=== PATIENT | female | born 1935 | race Caucasian/White ===

== ENCOUNTER → 2016-10-28 | Outpatient (CLI) | payer MEDICARE, BC ==
--- NOTE | 2016-10-30 11:31 | RADIOLOGY REPORT (SQ) ---
EXAM DESCRIPTION: PET CT SKULL/THIGH COMPLETED DATE/TIME: 10/28/2016 1:33 pm REASON FOR STUDY: BREAST CANCER C50.919 MALIGNANT NEOPLASM OF UNSP SITE OF UNSPECIFIED FEMAL COMPARISON: 11/27/2015. RADIONUCLIDE AND DOSE: 12.0 mCi F18 FDG The route of agent administration: Intravenous FASTING BLOOD SUGAR: 151 mg/dl CONTRAST TYPE AND DOSE: No CT contrast given. TECHNIQUE: Blood glucose level was verified. Above dose of FDG was injected intravenously. 2-D seg mented attenuation correction images were obtained from the base of the skull to the midthighs. Nonc ontrast CT images were obtained for attenuation correction and fusion with emission images. CT image s were performed without oral or intravenous contrast and are not sensitive for parenchymal lesions. A series of overlapping emission PET images were obtained. Images reviewed and manipulated at [facility] work station by the radiologist. Images stored on PACS. LIMITATIONS: None. FINDINGS: HEAD AND NECK: No areas of abnormal metabolic activity in the soft tissues of the head and neck. CHEST: No areas of abnormal metabolic activity in the chest. ABDOMEN AND PELVIS: No areas of abnormal metabolic activity in the abdomen or pelvis. Expected physi ologic activity is present in the genitourinary system and bowel. PROXIMAL LOWER EXTREMITIES: No areas of abnormal metabolic activity in the soft tissues of the lower extremities. BONES: No abnormal metabolic activity in the visualized skeleton. ADDITIONAL CT FINDINGS: Stable chronic findings on CT. Postcholecystectomy with air in the intrahepa tic bile ducts. Degenerative changes in lumbar spine. Mesh in the anterior abdominal wall. Surgica l changes in the left breast. OTHER: No other significant findings. IMPRESSION: NO AREAS OF ABNORMAL METABOLIC ACTIVITY CONCERNING FOR METASTASIS. STABLE CHRONIC FINDI NGS ON CT. TECHNICAL DOCUMENTATION: JOB ID: [id number]- All Rights Reserved
== END ==
LOC: RAD 11:40
PROVIDERS: ATTEND Internal Medicine Medical Oncology
DX: C50.919 Malignant neoplasm of unspecified site of unspecified female breast (principal)
CPT/HCPCS: 78815; A9552

== ENCOUNTER → 2017-04-11 | Outpatient (CLI) | payer MEDICARE, BC ==
--- NOTE | 2017-04-12 14:57 | WOMENS IMAGING REPORT ---
EXAM DESCRIPTION: 3D SCREENING MAMMO BILAT COMPLETED DATE/TIME: 04/11/2017 2:50 pm REASON FOR STUDY: ROUTINE SCREENING;Z12.31 Z12.31 ENCNTR SCREEN MAMMOGRAM FOR MALIGNANT NEOPLASM OF HIWOT COMPARISON: 2015 TECHNIQUE: Standard craniocaudal and mediolateral oblique views of each breast recorded using digita l acquisition and breast tomosynthesis. LIMITATIONS: None. FINDINGS: Findings present which are benign by mammographic criteria. No suspicious masses, calcifi cations or architectural distortion. Pertinent benign findings: Surgical changes on the left. Read with the assistance of CAD. .[facility] - R2 Cenova Version 1.3 .[facility] - R2 Cenova Version 1.3 .[facility] - R2 Cenova Version 2.4 .[facility] - R2 Cenova Version 2.4 .[facility] - R2 Explosive Operator Fuse Version 9.2 Benign mammographic findings may include one or more of the following: Smooth masses, popcorn/rim/co arse calcifications, asymmetries, post-procedure changes, and lesions with long-standing stability. IMPRESSION: BENIGN MAMMOGRAPHIC FINDINGS. BIRADS 2 BREAST DENSITY: a. The breasts are almost entirely fatty. BIRAD: 2 BENIGN FINDING(S) RECOMMENDATION: RECOMMENDATION: ROUTINE SCREENING COMMENT: The patient has been notified of the results by letter per SA requirements. Additional no tification policies are in place for contacting patient with suspicious or incomplete findings. Quality ID #[id number]: The [employer] [employer] recommends an annual screening mammogram for women aged 40 years or over. This facility utilizes a reminder system to ensure that all patients receive reminder letters, and/or direct phone calls for appointments. This includes reminders for routine scr eening mammograms, diagnostic mammograms, or other Breast Imaging Interventions when appropriate. Th is patient will be placed in the appropriate reminder system. The [place] [employer] (ACR) has developed recommendations for screening MRI of the breast s in certain patient populations, to be used in conjunction with mammography. Breast MRI surveillanc e may be appropriate for women with more than 20% lifetime risk of developing breast cancer as deter mined by genetic testing, significant family history of the disease, or history of mantle radiation f or Hodgkins Disease. ACR Practice Guidelines 2008. DBT Technology DBT is a type of tomographic mammography. With conventional mammography, overlapping breast tissue ma y make lesions difficult to detect, even with good compression. DBT uses an x-ray tube that rotates a round the breast, taking images at different angles. These images are then combined to create thin sl ices of the breast that the radiologist can view as a 3D reconstruction. The Hologic unit can perform full-field digital mammograms (2D imaging); or DBT (3D imaging); or both, in a combination mode that quickly performs both the mammogram and the tomosynthesis scan while the breast is still compressed. PQRS 6045F: Fluoroscopic imaging is not utilized for breast tomosynthesis. TECHNICAL DOCUMENTATION: FINDING NUMBER: (1) ASSESSMENT: (1) JOB ID: [id number] [employer]- All Rights Reserved
== END ==
LOC: WI 13:52
PROVIDERS: ATTEND Internal Medicine Medical Oncology
DX: Z12.31 Encounter for screening mammogram for malignant neoplasm of breast (principal)
CPT/HCPCS: 77063; 77067

== ENCOUNTER → 2017-05-01 | Outpatient (CLI) | payer MEDICARE, BC ==
[2017-05-01 14:22] LABS: ARTERIAL BLOOD BASE EXCESS -0.1 mmol/L; ARTERIAL BLOOD HCO3 25.8 mmol/L (20-26); ARTERIAL BLOOD O2 SATURATION 91.5 % (94-98); ARTERIAL BLOOD PCO2 46.5 mmHg (35-45); ARTERIAL BLOOD PH 7.36 (7.35-7.45); ARTERIAL BLOOD PO2 63.9 mmHg (80-100); ARTERIAL BLOOD TOTAL CO2 27.2 mmol/L (21-25)
[2017-05-01 14:23] LABS: ARTERIAL BLOOD FIO2 ROOM AIR
--- NOTE | 2017-05-01 14:46 | RADIOLOGY REPORT (SQ) ---
EXAM DESCRIPTION: CHEST PA/LATERAL COMPLETED DATE/TIME: 05/01/2017 2:13 pm REASON FOR STUDY: CHRONIC RESPIRATORY FAILURE WITH HYPERCAPNIA COMPARISON: None. EXAM PARAMETERS: NUMBER OF VIEWS: two views TECHNIQUE: Digital Frontal and Lateral radiographic views of the chest acquired. RADIATION DOSE: NA LIMITATIONS: none FINDINGS: LUNGS AND PLEURA: No opacities, masses or pneumothorax. No pleural effusion. MEDIASTINUM AND HILAR STRUCTURES: No masses or contour abnormalities. HEART AND VASCULAR STRUCTURES: Old sternotomy for CABG. No cardiomegaly. Faintly radiopaque left co ronary stent. BONES: Osteoporotic with diffuse thoracic ankylosis. HARDWARE: None in the chest. OTHER: No other significant finding. IMPRESSION: No acute findings TECHNICAL DOCUMENTATION: JOB ID: [id number] [employer]- All Rights Reserved
== END ==
LOC: OD 13:39
PROVIDERS: ATTEND Internal Medicine Pulmonary Disease
DX: J96.12 Chronic respiratory failure with hypercapnia (principal)
CPT/HCPCS: 36600; 71046; 82803

== ENCOUNTER 2017-07-26 19:38 | Inpatient (IN) | payer MEDICARE, BC ==
[2017-07-26] MEDS ORDERED: NORMAL SALINE 1000 ML 1,000 ML IV ONE ×2 (19:51→20:41)
[2017-07-26 19:59] LABS: HEMATOCRIT 42.9 % (36.0-47.0); HEMOGLOBIN 14.5 g/dL (12.0-15.5); MEAN CORPUSCULAR HEMOGLOBIN 32.8 pg (27.0-33.4); MEAN CORPUSCULAR HGB CONC 33.8 g/dL (32.0-36.0); MEAN CORPUSCULAR VOLUME 97 fl (80-97); PLATELET COUNT 228 10^3/uL (150-450); RED BLOOD COUNT 4.41 10^6/uL (3.72-5.28); RED CELL DISTRIBUTION WIDTH 15.1 % (11.5-14.0); WHITE BLOOD COUNT 10.1 10^3/uL (4.0-10.5)
[2017-07-26 20:03] LABS: VENOUS BLOOD BASE EXCESS 0.3 mmol/L; VENOUS BLOOD HCO3 24.7 mmol/L (20-32); VENOUS BLOOD PCO2 38.9 mmHg (35-63); VENOUS BLOOD PH 7.42 (7.30-7.42)
[2017-07-26 20:10] LABS: INTERNATIONAL RATION (INR) 1.41; PROTHROMBIN TIME 17.9 SEC (11.4-15.4)
--- NOTE | 2017-07-26 20:10 | ER Document Report ---
ED General - General Stated Complaint: FEVER Time Seen by Provider: 07/26/17 19:50 Notes: Patient is a 82-year-old female who presents emergency department the chief complaint of fever, hypoxia. Patient states that she had symptoms starting on Monday with abdominal pain status post eating red lobster. Patient states that on Monday she had lower abdominal cramping with nausea and vomiting that resolved by Monday. Patient states that on Monday she was having shortness of breath, dyspnea on exertion and chills/subjective fever. Patient states that she takes aspirin but denies any other blood thinners. Patient denies any productive cough, chest pain. Primary care is with Dr. Chavez Improvement Advisor with Dr. Monae Urology with Dr. Gonzalez for urinary incontinence Cardiology with Dr. Saul Pain management with Dr. Amos Past medical history significant for COPD not on home O2, urinary incontinence, jee-nsjjvep-krzcoccew diabetes, hypertension, history of atrial fibrillation on Tikosyn and metoprolol, history of chronic back pain Past surgical history significant for umbilical hernia repair 2, coronary artery bypass 1, bilateral cataracts, tonsils and adenoids, previous coronary stent 2, cholecystectomy, bilateral knee replacements Social history significant for former tobacco user, occasional alcohol. Denies any drug use. Allergies to sulfa, penicillin and Biaxin. TRAVEL OUTSIDE OF THE [place] IN LAST 30 DAYS: No - Related Data Allergies/Adverse Reactions: Penicillins Allergy (Verified 03/04/15 08:13) Sulfa (Sulfonamide Antibiotics) Allergy (Verified 03/04/15 08:13) Past Medical History - Social History Smoking Status: Former Smoker Family History: Reviewed & Not Pertinent Psychiatric Medical History: Reports: Hx Depression - Immunizations Hx Diphtheria, Pertussis, Tetanus Vaccination: Yes Physical Exam - Vital signs Vitals: Resp Pulse Ox 22 H 91 L 07/26/17 19:48 07/26/17 19:48 - Notes Notes: PHYSICAL EXAM GENERAL: Alert, interacts well. HEAD: Normocephalic, atraumatic. EYES: Pupils equal, round, and reactive to light. Extraocular movements intact. ENT: Oral mucosa moist, tongue midline. NECK: Full range of motion. Supple. Trachea midline. LUNGS: Clear to auscultation bilaterally, no wheezes, rales, or rhonchi. No respiratory distress. HEART: Regular rate and rhythm. No murmurs, gallops, or rubs. ABDOMEN: Obese, soft, nondistended, nontender. No guarding, rebound, or rigidity.. Bowel sounds present in all 4 quadrants. EXTREMITIES: Moves all 4 extremities spontaneously. No edema, radial and dorsalis pedis pulses 2/4 bilaterally. No cyanosis. NEUROLOGICAL: Alert and oriented x4. Normal speech. PSYCH: Normal affect, normal mood. SKIN: Warm, dry, normal turgor. No rashes or lesions noted. Course - Re-evaluation Re-evalutation: 07/27/17 00:48 Patient is an 82-year-old female who presents with a UTI, hypoxia, fever with sepsis criteria. Patient will be admitted. No evidence of PE noted on CTA chemistry shows mild AK I as well as elevated BNP. Patient is still requiring supplemental O2. Patient evaluated by hospitalist who agrees to admit for hypoxia, urinary tract infection versus pyelonephritis due to meeting inpatient sepsis criteria. Patient agreeable with plan. - Vital Signs Vital signs: Temp Pulse Resp BP Pulse Ox 99.1 F 122 H 22 H 99/55 L 99 07/26/17 22:50 07/26/17 19:51 07/27/17 07:33 07/27/17 07:33 07/27/17 07:33 - Laboratory Result Diagrams: 07/26/17 19:04 07/26/17 19:04 Laboratory results interpreted by me: 07/26/17 07/26/17 07/26/17 19:04 19:04 19:04 RDW 15.1 H Seg Neuts % (Manual) 91 H Lymphocytes % (Manual) 4 L Abs Neuts (Manual) 9.2 H Abs Lymphs (Manual) 0.4 L PT 17.9 H D-Dimer BUN 21 H Creatinine 1.33 H Est GFR ( Amer) 46 L Est GFR (Non-Af Amer) 38 L Glucose 216 H POC Glucose Lactic Acid Direct Bilirubin 0.5 H NT-Pro-B Natriuret Pep Urine Protein Urine Ketones Urine Blood Urine Nitrite Ur Leukocyte Esterase 07/26/17 07/26/17 07/26/17 19:04 19:04 19:45 RDW Seg Neuts % (Manual) Lymphocytes % (Manual) Abs Neuts (Manual) Abs Lymphs (Manual) PT D-Dimer 9.40 H BUN Creatinine Est GFR ( Amer) Est GFR (Non-Af Amer) Glucose POC Glucose Lactic Acid 2.3 H Direct Bilirubin NT-Pro-B Natriuret Pep 1330 H Urine Protein Urine Ketones Urine Blood Urine Nitrite Ur Leukocyte Esterase 07/26/17 07/27/17 22:37 00:34 RDW Seg Neuts % (Manual) Lymphocytes % (Manual) Abs Neuts (Manual) Abs Lymphs (Manual) PT D-Dimer BUN Creatinine Est GFR ( Amer) Est GFR (Non-Af Amer) Glucose POC Glucose 248 H Lactic Acid Direct Bilirubin NT-Pro-B Natriuret Pep Urine Protein 100 H Urine Ketones TRACE H Urine Blood LARGE H Urine Nitrite POSITIVE H Ur Leukocyte Esterase LARGE H - Diagnostic Test Radiology reviewed: Image reviewed, Reports reviewed Discharge - Discharge Clinical Impression: Hypoxia UTI (urinary tract infection) Qualifiers: Urinary tract infection type: site unspecified Hematuria presence: without hematuria Qualified Code(s): N39.0 - Urinary tract infection, site not specified Sepsis Qualifiers: Sepsis type: sepsis due to unspecified organism Qualified Code(s): A41.9 - Sepsis, unspecified organism Condition: Stable Disposition: ADMITTED INPATIENT Admitting Provider: Hospitalist Unit Admitted: Medical Floor
[2017-07-26 20:15] LABS: ABSOLUTE LYMPHOCYTES# (MANUAL) 0.4 10^3/uL (0.5-4.7); ABSOLUTE MONOCYTES # (MANUAL) 0.5 10^3/uL (0.1-1.4); ABSOLUTE NEUTROPHILS# (MANUAL) 9.2 10^3/uL (1.7-8.2); BASOPHILS % (MANUAL) 0 % (0-2); EOSINOPHILS % (MANUAL) 0 % (0-6); LYMPHOCYTES % (MANUAL) 4 % (13-45); MONOCYTES % (MANUAL) 5 % (3-13); SEGMENTED NEUTROPHILS % (MAN) 91 % (42-78); TOTAL CELLS COUNTED 100
[2017-07-26 20:17] LABS: ANISOCYTOSIS SLIGHT; PLATELET COMMENT ADEQUATE; TOXIC GRANULATION SLIGHT
[2017-07-26 20:20] LABS: ALANINE AMINOTRANSFERASE 24 U/L (9-52); ALBUMIN 3.7 g/dL (3.5-5.0); ALKALINE PHOSPHATASE 105 U/L (38-126); ANION GAP 16 (5-19); ASPARTATE AMINO TRANSFERASE 24 U/L (14-36); BILIRUBIN,DIRECT 0.5 mg/dL (0.0-0.4); BILIRUBIN,TOTAL 0.9 mg/dL (0.2-1.3); BLOOD UREA NITROGEN 21 mg/dL (7-20); CALCIUM 9.8 mg/dL (8.4-10.2); CARBON DIOXIDE 22 mmol/L (22-30); CHLORIDE 99 mmol/L (98-107); GLUCOSE 216 mg/dL (75-110); SODIUM 137.1 mmol/L (137-145); TOTAL PROTEIN 7.2 g/dL (6.3-8.2)
[2017-07-26 20:43] LABS: CREATINE KINASE MB 0.3 ng/mL (<4.55); TROPONIN I 0.021 ng/mL
--- NOTE | 2017-07-26 21:16 | RADIOLOGY REPORT (SQ) ---
EXAM DESCRIPTION: CHEST SINGLE VIEW COMPLETED DATE/TIME: 07/26/2017 8:43 pm REASON FOR STUDY: fever, hypoxia COMPARISON: 05/01/2017 EXAM PARAMETERS: NUMBER OF VIEWS: One view. TECHNIQUE: Single frontal radiographic view of the chest acquired. RADIATION DOSE: NA LIMITATIONS: None. FINDINGS: LUNGS AND PLEURA: Atelectasis at the left base. Right lung is clear. MEDIASTINUM AND HILAR STRUCTURES: No masses. Contour normal. HEART AND VASCULAR STRUCTURES: Heart normal in size. Normal vasculature. BONES: No acute findings. HARDWARE: Sternal wires. OTHER: No other significant finding. IMPRESSION: Left basilar atelectasis. TECHNICAL DOCUMENTATION: JOB ID: [id number] [employer]- All Rights Reserved Reading location - IP/workstation name: [email or web address]
[2017-07-26] MEDS ORDERED: IBUPROFEN 800 MG TABLET PO ONE (22:08)
[2017-07-26 23:10] LABS: APPEARANCE,URINE CLOUDY; BILIRUBIN,URINE NEGATIVE (NEGATIVE); COLOR,URINE AMBER; GLUCOSE, URINE NEGATIVE (NEGATIVE); KETONES,URINE TRACE mg/dL (NEGATIVE); LEUKOCYTE ESTERASE,URINE LARGE (NEGATIVE); NITRITE,URINE POSITIVE (NEGATIVE); PROTEIN,URINE 100 mg/dL (NEGATIVE); URINE SPECIFIC GRAVITY 1.021; UROBILINOGEN,URINE NEGATIVE mg/dL (<2.0)
[2017-07-26] MEDS ORDERED: LEVOFLOXACIN 750 MG/D5W RTU 750 MG/150 ML RTUPB IV ONE (23:24)
--- NOTE | 2017-07-26 23:45 | EKG REPORT ---
SEVERITY:- ABNORMAL ECG - SINUS TACHYCARDIA CONSIDER ANTEROSEPTAL INFARCT APC : Confirmed by: Ailin Lopez 26-Jul-2017 23:44:08
--- NOTE | 2017-07-27 00:16 | RADIOLOGY REPORT (SQ) ---
EXAM DESCRIPTION: CTA CHEST COMPLETED DATE/TIME: 07/26/2017 11:48 pm REASON FOR STUDY: dyspnea, hypoxia COMPARISON: None. TECHNIQUE: CT scan of the chest performed using helical scanning technique with dynamic intravenous contrast injection. Images reviewed with lung, soft tissue and bone windows. Reconstructed coronal and sagittal MPR images reviewed. Additional 3 dimensional post-processing performed to develop Maximal Intensity Projection images (SC P). All images stored on PACS. All CT scanners at this facility use dose modulation, iterative reconstruction, and/or weight based d osing when appropriate to reduce radiation dose to as low as reasonably achievable (ALARA). [facility]: Dose Right [facility]: CareDose [facility]: Dose Right [facility]: Teradose 4D [facility]: [employer] CONTRAST TYPE AND DOSE: contrast/concentration: Isovue 370.00 mg/ml; Total Contrast Delivered: 100.0 ml; Total Saline Delivered: 33.0 ml Contrast bolus adequate for pulmonary arteries and aorta. RENAL FUNCTION: Creatinine 1.33 RADIATION DOSE: CT Rad equipment meets quality standard of care and radiation dose reduction techniq ues were employed. CTDIvol: 39.5 mGy. DLP: 1167 mGy-cm. . LIMITATIONS: None. FINDINGS: LUNGS AND PLEURA: Scattered areas of subsegmental atelectasis are present in both lung bas es. No dense consolidation or pleural effusion. No pneumothorax. AORTA AND GREAT VESSELS: No aneurysm. Contrast bolus not optimized for the aorta. HEART: No pericardial effusion. Prior CABG. PULMONARY ARTERIES: No emboli visualized in the main pulmonary arteries or the segmental branches. HILAR AND MEDIASTINAL STRUCTURES: No identified masses or abnormal nodes. HARDWARE: CABG. UPPER ABDOMEN: Pneumobilia. Limited exam. THYROID AND OTHER SOFT TISSUES: No masses. No adenopathy. BONES: No acute finding. 3D MIPS: Confirm above findings. OTHER: No other significant finding. IMPRESSION: Scattered areas of subsegmental atelectasis are present in both lung bases. No dense co nsolidation or pleural effusion.No emboli visualized in the main pulmonary arteries or the segmental branches. Pneumobilia. COMMENT: Quality ID # [id number]: Final reports with documentation of one or more dose reduction techniques (e.g., Automated exposure control, adjustment of the mA and/or kV according to patient size, use of iterative reconstruction technique) TECHNICAL DOCUMENTATION: JOB ID: [id number] [place]-72 2010 [employer]- All Rights Reserved Reading location - IP[facility]workstation name: [email or web address]
[2017-07-27] MEDS ORDERED: NORMAL SALINE 1000 ML 1,000 ML IV ONE (00:47)
[2017-07-27] MEDS ORDERED: ACETAMINOPHEN 325 MG TABLET PO PRN (00:55)
[2017-07-27] MEDS ORDERED: ONDANSETRON HCL INJ/PF 4 MG/2 ML SDV IV PRN (00:55)
--- NOTE | 2017-07-27 02:16 | PDOC H&P ---
History of Present Illness Admission Date/PCP: 07/27/17 01:07 DARRIN MELENDEZ MD History of Present Illness: LUIS A STEPHEN is a 82 year old female patient with multiple comorbidities including HTN, HLD, morbid obesity, COPD, diabetes mellitus and atrial fibrillation, presented with chief complaint of fever and shortness of breath. Patient reports this that she has been in her baseline state of up until Monday when she started to have generalized weakness, fever, abdominal pain and shortness of breath. Her initial workup shows urinalysis positive for nitrites and WBC 182. Her creatinine also mildly elevated which is 1.33. Chest x-ray is negative. Patient also noticed to have hypotension for which she got bolus of 2 L. Patient denies any chest pain, cough, or diarrhea. She did have nausea, vomiting and abdominal pain which resolved without intervention. Patient has underlying urinary incontinence but no dysuria. No orthopnea or paroxysmal nocturnal dyspnea. Past Medical History Cardiac Medical History: Reports: Atrial Fibrillation, Hyperlipidema, Hypertension Endocrine Medical History: Reports: Diabetes Mellitus Type 2 Psychiatric Medical History: Reports: Depression Social History Smoking Status: Former Smoker Frequency of Alcohol Use: Social Hx Recreational Drug Use: No Family History Family History: Reviewed & Not Pertinent, DM, Hypertension Parental Family History Reviewed: Yes Children Family History Reviewed: Yes Sibling(s) Family History Reviewed.: Yes Medication/Allergy Home Medications: Albuterol Sulfate [Proair HFA] 2 puff IH QID 03/05/15 Anastrozole [Arimidex 1 mg Tablet] 1 mg PO QAM 03/05/15 Aspirin [Ecotrin 81 mg EC Tablet] 81 mg PO DAILY 03/05/15 Budesonide/Formoterol Fumarate [Symbicort HFA 160-4.5 mcg Inhaler 6 gm] 2 puff IH Q12 PRN 03/05/15 Gabapentin 300 mg PO QHS 03/05/15 Latanoprost [Xalatan 0.005% Oph Soln 2.5 ml] 1 drop OP QHS 03/05/15 Levothyroxine Sodium 150 mcg PO QAM 03/05/15 Nitroglycerin [Nitrostat] 0.4 mg SL ASDIR PRN 03/05/15 Pravastatin Sodium 40 mg PO QAM 03/05/15 Tiotropium Hawkeye [Spiriva Handihaler 18 mcg/dose (30 Dose)] 1 cap IH DAILY 01/08 Sennosides/Docusate 8.6-50 mg [Senna Plus Tablet] 1 each PO BID #60 tablet 03/12 Duloxetine HCl [Cymbalta] 30 mg PO BID 01/05/16 Alprazolam [Xanax 0.5 mg Tablet] 0.5 mg PO Q6HP PRN 01/06/16 Carisoprodol [Soma 350 Mg Tablet] 350 mg PO QHS 01/06/16 Metoprolol Tartrate [Lopressor 25 mg Tablet] 50 mg PO Q12 01/06/16 Oxycodone HCl/Acetaminophen [Percocet 7.5-325 Mg Tablet] 1 each PO PRN PRN 01/05 Temazepam [Restoril] 30 mg PO QHS 01/06/16 Allergies/Adverse Reactions: Penicillins Allergy (Verified 03/04/15 08:13) Sulfa (Sulfonamide Antibiotics) Allergy (Verified 03/04/15 08:13) Review of Systems Constitutional: PRESENT: as per HPI Eyes: PRESENT: as per HPI Nose, Mouth, and Throat: PRESENT: as per HPI Respiratory: PRESENT: as per HPI Gastrointestinal: PRESENT: as per HPI Psychiatric: PRESENT: as per HPI Physical Exam Vital Signs: Temp Pulse Resp BP Pulse Ox 99.1 F 122 H 23 H 117/72 96 07/26/17 22:50 07/26/17 19:51 07/26/17 21:30 07/26/17 21:30 07/26/17 21:30 General appearance: PRESENT: mild distress Head exam: PRESENT: atraumatic, normocephalic Respiratory exam: PRESENT: clear to auscultation britt. ABSENT: rales, rhonchi, wheezes Cardiovascular exam: PRESENT: irregular rhythm GI/Abdominal exam: PRESENT: other - Morbidly obese abdomen Results Impressions: Chest X-Ray 07/26/17 19:51 IMPRESSION: Left basilar atelectasis. Chest/Abdomen CTA 07/26/17 21:03 IMPRESSION: Scattered areas of subsegmental atelectasis are present in both lung bases. No dense consolidation or pleural effusion.No emboli visualized in the main pulmonary arteries or the segmental branches. Pneumobilia. Assessment & Plan - Diagnosis (1) Sepsis Qualifiers: Sepsis type: sepsis due to unspecified organism Qualified Code(s): A41.9 - Sepsis, unspecified organism Is this a current diagnosis for this admission?: Yes Plan: Patient has been bolused with IV fluids, and she has been on Levaquin since she has an allergy to penicillin. (2) Complicated UTI (urinary tract infection) Is this a current diagnosis for this admission?: Yes Plan: As #1 (3) A-fib Qualifiers: Atrial fibrillation type: chronic Qualified Code(s): I48.2 - Chronic atrial fibrillation Is this a current diagnosis for this admission?: Yes Plan: Rate controlled we will continue her home indications. (4) COPD (chronic obstructive pulmonary disease) Qualifiers: Emphysema type: unspecified Is this a current diagnosis for this admission?: Yes Plan: As needed breathing treatment. - Time Time Spent: 30 to 50 Minutes - Inpatient Certification Medical Necessity: Need for IV Antibiotics
[2017-07-27] MEDS: LANSOPRAZOLE 30 MG TAB.RAP.DR PO SCH (06:47)
[2017-07-27] MEDS: HEPARIN SOD (PORCINE) 5,000 UNIT/ML 1 ML SYRINGE SUBCUT SCH ×3 (06:49→23:45)
[2017-07-27] MEDS ORDERED: NORMAL SALINE 1000 ML 500 ML IV ONE (07:08)
[2017-07-27] MEDS ORDERED: NORMAL SALINE 1000 ML 1,000 ML IV PRN (08:57)
[2017-07-27] MEDS ORDERED: ALBUTEROL SULFATE HFA (90 MCG/PUFF) 200 PUFF/8.5 GM MDI IH PRN (13:09)
[2017-07-27] MEDS ORDERED: (PENDING PHARMACY ID) (Levothyroxine Sodium [Synthroid] 125 MCG) PO SCH (13:15)
[2017-07-27] MEDS ORDERED: (PENDING PHARMACY ID) (Dofetilide [Tikosyn] 250 MCG) PO SCH (13:15)
[2017-07-27] MEDS ORDERED: CYCLOBENZAPRINE HCL 10 MG TABLET PO PRN (14:37)
[2017-07-27] MEDS ORDERED: MORPHINE SULFATE 10 MG/ML INJ IV PRN (14:39)
[2017-07-27] MEDS ORDERED: NALOXONE HCL INJ/PF 0.4 MG/1 ML SDV IV PRN (14:40)
[2017-07-27] MEDS: ALPRAZOLAM 0.5 MG TABLET PO PRN (15:28)
[2017-07-27] MEDS ORDERED: ASPIRIN 81 MG TABLET, ENT COATED PO ONE (15:30)
[2017-07-27] MEDS ORDERED: ANASTROZOLE 1 MG TABLET PO ONE (15:30)
--- NOTE | 2017-07-27 17:27 | Progress Note ---
Provider Note Provider Note: Agree with food editor plan of care for LUIS A STEPHEN, an 82 year old female who presented with shortness of breath and fever. 1. SEPSIS: Due to UTI as evidenced by GNR in blood and urine cultures and low grade temperature (100.8). Currently being treated with IV Levaquin. Patient has allergy to PCN. Awaiting culture sensitivities. 2. UTI: Urinalysis indicative of UTI, urine culture growing GNR. 3. ARF: Creatinine 1.3, her baseline is < 1.0. This is likely due to dehydration secondary to her infection. The patient received an IVF bolus in the ED, continue maintenance IVF for rehydration 4. COPD: Patient is followed by Dr. Monae. Plan to restart home inhalers ( Spiriva and Symbicort) and PRN nebulizer treatments. 5. ATRIAL FIBRILLATION: History of AFIB, currently rate controlled. Restart home dose Tikosyn. 6. DVT PPX: SC heparin
[2017-07-27] MEDS ORDERED: OXYCODONE HCL SR 10 MG TABLET PO ONE (18:00)
[2017-07-27] MEDS ORDERED: DEXTROSE 40% GEL 15 GM TUBE PO PRN (23:44)
[2017-07-27] MEDS ORDERED: DEXTROSE 40% GEL 15 GM TUBE X 2 PO PRN (23:44)
[2017-07-27] MEDS ORDERED: DEXTROSE 50%-WATER SYRINGE 25 GM/50 ML DOSE IV PRN (23:44)
[2017-07-27] MEDS ORDERED: DEXTROSE 50%-WATER SYRINGE 12.5 GM/25 ML DOSE IV PRN (23:44)
[2017-07-27] MEDS ORDERED: GLUCAGON,HUMAN RECOMB 1 MG INJ IM PRN (23:44)
[2017-07-27] MEDS: BUDESONIDE/FORMOTEROL 160-4.5 MCG 60 PUFF/6 GM MDI IH SCH (23:45)
[2017-07-27] MEDS: GABAPENTIN 300 MG CAPSULE PO SCH (23:45)
[2017-07-27] MEDS ORDERED: RINGERS SOLUTION,LACTATED 500 ML IV ONE (23:45)
[2017-07-28] MEDS: LEVOFLOXACIN 500 MG/D5W RTU 500 MG/100 ML RTUPB IV SCH ×2 (00:10→21:53)
[2017-07-28] MEDS: IPRATROPIUM/ALBUTEROL 0.5-2.5 MG/3 ML AMPUL NEB PRN (02:54)
[2017-07-28] MEDS: LANSOPRAZOLE 30 MG TAB.RAP.DR PO SCH (06:16)
[2017-07-28] MEDS: HEPARIN SOD (PORCINE) 5,000 UNIT/ML 1 ML SYRINGE SUBCUT SCH ×3 (06:17→21:59)
[2017-07-28] MEDS: LEVOTHYROXINE SODIUM 0.05 MG TABLET PO SCH (06:17)
[2017-07-28 07:17] LABS: HEMATOCRIT 35.1 % (36.0-47.0); MEAN CORPUSCULAR HEMOGLOBIN 32.8 pg (27.0-33.4); MEAN CORPUSCULAR HGB CONC 33.7 g/dL (32.0-36.0); MEAN CORPUSCULAR VOLUME 97 fl (80-97); PLATELET COUNT 119 10^3/uL (150-450); RED BLOOD COUNT 3.61 10^6/uL (3.72-5.28); RED CELL DISTRIBUTION WIDTH 15.1 % (11.5-14.0); WHITE BLOOD COUNT 13.3 10^3/uL (4.0-10.5)
[2017-07-28 07:27] LABS: HEMOGLOBIN 11.8 g/dL (12.0-15.5)
[2017-07-28 07:30] LABS: ANION GAP 14 (5-19); BLOOD UREA NITROGEN 35 mg/dL (7-20); CALCIUM 9.3 mg/dL (8.4-10.2); CARBON DIOXIDE 20 mmol/L (22-30); CHLORIDE 104 mmol/L (98-107); GLUCOSE 113 mg/dL (75-110); PHOSPHORUS 3.8 mg/dL (2.5-4.5); POTASSIUM 4.3 mmol/L (3.6-5.0); SODIUM 137.8 mmol/L (137-145)
[2017-07-28 08:06] LABS: ABSOLUTE LYMPHOCYTES# (MANUAL) 0.5 10^3/uL (0.5-4.7); ABSOLUTE MONOCYTES # (MANUAL) 0.5 10^3/uL (0.1-1.4); ABSOLUTE NEUTROPHILS# (MANUAL) 12.2 10^3/uL (1.7-8.2); BAND NEUTROPHILS % (MANUAL) 6 % (3-5); BASOPHILS % (MANUAL) 0 % (0-2); EOSINOPHILS % (MANUAL) 0 % (0-6); LYMPHOCYTES % (MANUAL) 4 % (13-45); METAMYELOCYTES % (MANUAL) 1 % (0); MONOCYTES % (MANUAL) 4 % (3-13); SEGMENTED NEUTROPHILS % (MAN) 85 % (42-78); TOTAL CELLS COUNTED 100; TOXIC GRANULATION SLIGHT; TOXIC VACUOLATION PRESENT
[2017-07-28 08:07] LABS: ANISOCYTOSIS SLIGHT; PLATELET COMMENT ADEQUATE; POLYCHROMASIA SLIGHT
[2017-07-28] MEDS: ANASTROZOLE 1 MG TABLET PO SCH (09:49)
[2017-07-28] MEDS: ASPIRIN 81 MG TABLET, ENT COATED PO SCH (09:56)
[2017-07-28] MEDS: GABAPENTIN 300 MG CAPSULE PO SCH ×2 (09:57→21:55)
[2017-07-28] MEDS: BUDESONIDE/FORMOTEROL 160-4.5 MCG 60 PUFF/6 GM MDI IH SCH ×2 (09:57→21:54)
[2017-07-28] MEDS: TIOTROPIUM BROMIDE DPI 5 CAP/KIT (18 MCG/CAP) IH SCH (09:57)
[2017-07-28] MEDS ORDERED: OXYCODONE HCL SR 10 MG TABLET PO SCH (10:00)
[2017-07-28] MEDS ORDERED: NORMAL SALINE 1000 ML 1,000 ML IV ONE (10:02)
[2017-07-28] MEDS ORDERED: ACETAMINOPHEN 325 MG TABLET PO PRN (10:15)
[2017-07-28] MEDS: DOFETILIDE 125 MCG CAPSULE PO SCH ×2 (11:45→21:55)
[2017-07-28] MEDS: LATANOPROST 0.005% OPH SOLN 2.5 ML OU SCH (11:45)
[2017-07-28] MEDS: NORMAL SALINE 1000 ML 1,000 ML IV PRN ×2 (13:15→21:53)
[2017-07-28] MEDS ORDERED: DIGOXIN INJ 0.5 MG/2 ML AMPULE IV ONE ×2 (13:45→15:45)
--- NOTE | 2017-07-28 17:07 | Progress Note ---
Provider Note Provider Note: ID Consult Note Asked to review patient's chart by Pharmacy. Pt not seen and examined. Reviewed VS, labs, imaging, provider notes. Ms Ibarra is a 82 yo woman with pmh including HTN, HLD, morbid obesity, DM, COPD and AF who presented on 07/26/17 with c/o fever and SOB. She was at baseline health until Monday, two days prior , when she developed generalized weakness, fever, abdominal pain and SOB. She did not have dysuria. She was found to have a fever on admission of around 100.8 F. She was documented to have clear lungs on admission. Her CXR was negative apart from L basilar atelectasis. She had a CTA chest that did not show PE; she had areas of atelectasis in the lung base, no dense consolidation or pleural effusion, and in the limited view of the upper abdomen, she was found to have pneumobilia. Her UCx grew >100k cfu Proteus species, sensitive except to tetracyclines and nitrofurantoin. Her BCx on 07/26 have GNRs in both sets, pending identification. Repeat BCx on 07/27 also show GNRs. Pt is on Levaquin empirically. Impression/Recommendations 1. Gram negative bacillary bacteremia - Pending identification, positive BCx from 07/26 and 07/27, sources include urine vs hepatobiliary sepsis. Lack of urinary symptoms argues against bacteremia from a UTI. Pneumobilia was seen on the CTA chest's limited views of the upper abdomen, suggesting hepatobiliary sepsis may be more likely, but LFTs were normal. At the current time it is unclear what the underlying source is. Identification of the GNR (whether the same as in the urine or not) would help clarify. Obtaining an ultrasound of the RUQ to investigate the CT finding of pneumobilia might also be helpful, if it has not already been done. - Anaerobic coverage is not routinely needed for hepatobiliary sources of sepsis , unless there is a biliary-enteric anastomosis present. The CT finding of pneumobilia raises this possibility (although it is not the only explanation). If the patient is doing well clinically, continuing empiric Levaquin and adding adding Flagyl may be reasonable. If she is not doing well, then expanding antibiotic therapy to ertapenem or to cefepime/Flagyl empirically could be considered until a diagnosis can be more firmly established and the organism in her blood cultures identified. She has a penicillin allergy, but the likelihood of crossreactivity between penicillins and cephalosporins or to carbapenems is quite low. - If source is the urine, then anaerobic coverage is not needed and can be discontinued, and antibiotic therapy can be de-escalated accordingly. If pt continues to be febrile despite appropriate antibiotics for UTI, imaging the abdomen might be considered to r/o perinephric abscess or some other complicating factor, such as hydronephrosis from an obstructing stone. Of course, all of the above is based on only chart review and are merely suggestions about empiric treatment, depending on suspected source, and do not replace and are not meant to contravene clinical assessment and judgment. Vladislav Kidd MD [facility] pager [phone]
--- NOTE | 2017-07-28 17:11 | PDOC PROGRESS REPORT ---
Subjective Progress Note for:: 07/28/17 Subjective:: Taya Ibarra is a 82 year old female who presented to the emergency department 07/27/2017 for fever and shortness of breath. She was admitted for UTI and AK I. She has a PMH of HTN, HLD, morbid obesity, COPD, diabetes, atrial fibrillation. The patient was seen this morning on rounds, she is resting comfortably in bed on supplemental oxygen. Patient appears very drowsy this morning although she is able to answer all questions appropriately. Of note, the patient was upgraded from a medical floor to telemetry for tachycardia and HYPOtension. Her HR was 135 and her BP 90/59. Additionally, her her urine output was very minimal and her creatinine increased from 1.3 to 1.8. The patient was bolused with 1 L NS and her maintenance IVF was increased from 75 to 150 ml/hr. Reason For Visit: ACUTE KIDNEY INJURY, COMPLICATED UTI Physical Exam Vital Signs: Temp Pulse Resp BP Pulse Ox 100.9 F H 116 H 20 132/64 H 91 L 07/28/17 15:45 07/28/17 16:12 07/28/17 15:45 07/28/17 15:45 07/28/17 15:45 Intake & Output 07/27/17 07/28/17 07/29/17 06:59 06:59 06:59 Intake Total 2112 Output Total 1100 Balance 1012 Weight 128.2 kg General appearance: PRESENT: morbidly obese Eye exam: PRESENT: conjunctiva pink, EOMI, PERRLA Mouth exam: PRESENT: moist Teeth exam: PRESENT: poor dentation Neck exam: PRESENT: full ROM Respiratory exam: PRESENT: clear to auscultation britt, symmetrical, unlabored Cardiovascular exam: PRESENT: irregular rhythm, +S1, +S2, tachycardia Pulses: PRESENT: normal radial pulses, normal dorsalis pedis pul GI/Abdominal exam: PRESENT: normal bowel sounds, soft. ABSENT: tenderness Rectal exam: PRESENT: deferred Gentrourinary exam: PRESENT: indwelling catheter, other - urine is yellow and cloudy Extremities exam: PRESENT: full ROM. ABSENT: pedal edema Musculoskeletal exam: PRESENT: ambulatory - minimally ambulatory. Can take a few steps but needs to sit down due to lower extremity weakness and lower back pain, full ROM Neurological exam: PRESENT: oriented to person, oriented to place, oriented to time, oriented to situation. ABSENT: alert, awake Skin exam: PRESENT: dry, intact, normal color, warm Results Laboratory Results: 07/28/17 06:12 07/28/17 06:12 07/28/17 07/28/17 07/28/17 06:12 06:12 10:31 WBC 13.3 H RBC 3.61 L Hgb 11.8 L D Hct 35.1 L MCV 97 MCH 32.8 MCHC 33.7 RDW 15.1 H Plt Count 119 L Seg Neutrophils % Not Reportable Lymphocytes % Not Reportable Monocytes % Not Reportable Eosinophils % Not Reportable Basophils % Not Reportable Absolute Neutrophils Not Reportable Absolute Lymphocytes Not Reportable Absolute Monocytes Not Reportable Absolute Eosinophils Not Reportable Absolute Basophils Not Reportable Sodium 137.8 Potassium 4.3 Chloride 104 Carbon Dioxide 20 L Anion Gap 14 BUN 35 H Creatinine 1.85 H Est GFR ( Amer) 32 L Est GFR (Non-Af Amer) 26 L Glucose 113 H Lactic Acid 1.0 Calcium 9.3 Phosphorus 3.8 Magnesium 1.6 Impressions: Chest X-Ray 07/26/17 19:51 IMPRESSION: Left basilar atelectasis. Chest/Abdomen CTA 07/26/17 21:03 IMPRESSION: Scattered areas of subsegmental atelectasis are present in both lung bases. No dense consolidation or pleural effusion.No emboli visualized in the main pulmonary arteries or the segmental branches. Pneumobilia. Status: Imported from PACS Assessment & Plan - Diagnosis (1) Sepsis Qualifiers: Sepsis type: sepsis due to unspecified organism Qualified Code(s): A41.9 - Sepsis, unspecified organism Is this a current diagnosis for this admission?: Yes Plan: Sepsis due to UTI as evidenced by GNR and blood and urine cultures, low-grade temperature (100.8), tachycardia (135-140bpm), and leukocytosis (13,000 cells/mm ) Urine culture positive for Proteus Mirabilis, sensitivities are resulted today. Susceptible to IV Levaquin. Awaiting blood culture sensitivities. Continue current regimen of 500mg IV Levaquin (patient has allergy to PCN) Lactate increased from 1.6 to 2.3, continue to monitor following IV fluid resuscitation. The patient endorses recent history of urinary incontinence. She states that she has been seen by a urologist. Poor perineal hygiene and her immobility are very likely the causes of her UTI. Ortiz catheter placed in the emergency department, will continue for accurate UOP in the setting of ARF (2) Complicated UTI (urinary tract infection) Is this a current diagnosis for this admission?: Yes Plan: Plan as above (3) ARF (acute renal failure) Qualifiers: Acute renal failure type: unspecified Qualified Code(s): N17.9 - Acute kidney failure, unspecified Is this a current diagnosis for this admission?: Yes Plan: Etiology is likely prerenal secondary to sepsis and dehydration Baseline creatinine is< 1.0 Condition worsening today, creatinine increased from 1.3 to 1.8 IVF bolus today followed by an increase in IVF maintenance rate Nursing staff reports that following this morning's IVF bolus, the urine output has greatly improved. (4) COPD (chronic obstructive pulmonary disease) Qualifiers: Emphysema type: unspecified Is this a current diagnosis for this admission?: Yes Plan: Patient endorses a history of COPD. She is followed by Dr. Monae as an outpatient. Lungs are clear to auscultation in all lung naranjo Continue home dose inhalers, Spiriva and Symbicort. PRN nebulizer treatments. (5) A-fib Qualifiers: Atrial fibrillation type: chronic Qualified Code(s): I48.2 - Chronic atrial fibrillation Is this a current diagnosis for this admission?: Yes Plan: The patient endorses a history of AFIB, currently taking Tikosyn (home medication) for rate/rhythm control. EKG shows sinus arrythmia, no AFIB or acute infarct/ischemia Cardiology was consulted by lima for tachycardia, recommend switching to Digoxin (6) Morbid obesity Is this a current diagnosis for this admission?: Yes Plan: Morbid obesity is quantified as a BMI > 35. This patient's BMI is 44 Utilize discretion when making dietary choices for this patient. Appreciate extraction operator recommendations. - Time Time Spent with patient: 15-24 minutes Medications reviewed and adjusted accordingly: Yes Anticipated discharge: Home - Inpatient Certification Based on my medical assessment, after consideration of the patient's comorbidities, presenting symptoms, or acuity I expect that the services needed warrant INPATIENT care.: Yes I certify that my determination is in accordance with my understanding of Medicare's requirements for reasonable and necessary INPATIENT services [42 CFR 412.3e].: Yes Medical Necessity: Need For IV Fluids, Need for IV Antibiotics, Risk of Complication if Not Cared For in Hospital - Plan Summary Plan Summary: Upgrade from medical to telemetry. No plan to discharge within the next 48 hours
--- NOTE | 2017-07-28 19:31 | XCELERA REPORT ---
[address] [address] Transthoracic Echocardiogram Report Name: LUIS A STEPHEN Age: 82 yrs Gender: Female : 1935 Patient Status: Inpatient Patient Location: [address] [place] [address] Study Date: 07/28/2017 02:56 PM Height: 67 in Weight: 282 lb BSA: 2.3 m2 Procedure: A complete two-dimensional transthoracic echocardiogram was performed (2D, M-mode, spectral and color flow Doppler). The study was technically difficult with many images being suboptimal in quality. Reason For Study: AFIB Ordering Physician: AILIN JONES Performed By: Lisa Be Interpretation Summary The left ventricular ejection fraction is normal. There is mild concentric left ventricular hypertrophy. The left ventricle is grossly normal size. Regional wall motion abnormalities cannot be excluded due to limited visualization. The right ventricle is mildly dilated. The left atrium is moderately dilated. The right atrium is mildly dilated. There is a trace amount of mitral regurgitation There is no mitral valve stenosis. No aortic regurgitation is present. There is no aortic valve stenosis There is a trace to mild amount of tricuspid regurgitation There is mild to moderate pulmonary hypertension by echo Right ventricular systolic pressure is estimated to be elevated at 40- 50mmHg. The aortic root is not well visualized but is probably normal size. The inferior vena cava appeared normal and decreased < 50% with respiration (RAP 10-15 mmHg) There is no pericardial effusion. MMode/2D Measurements & Calculations RVDd: 3.7 cm LVIDd: 4.8 cm FS: 32.1 % Ao root diam: 2.9 cm IVSd: 0.98 cm LVIDs: 3.3 cm EDV(Teich): 109.5 ml LVPWd: 1.0 cm ESV(Teich): 43.6 ml Ao root area: 6.5 cm2 EF(Teich): 60.2 % LA dimension: 4.5 cm Doppler Measurements & Calculations MV E max bessie: MV P1/2t max bessie: Ao V2 max: LV V1 max P.7 cm/sec 126.7 cm/sec 126.0 cm/sec 4.7 mmHg MV A max bessie: MV P1/2t: 68.2 msec Ao max PG: LV V1 max: 81.7 cm/sec 6.3 mmHg 108.6 cm/sec MV E/A: 1.6 MVA(P1/2t): 3.2 cm2 MV dec slope: 543.9 cm/sec2 MV dec time: 0.23 sec PA V2 max: TR max bessie: 115.7 cm/sec 297.3 cm/sec PA max PG: TR max P.3 mmHg 5.4 mmHg Left Ventricle The left ventricle is grossly normal size. There is mild concentric left ventricular hypertrophy. The left ventricular ejection fraction is normal. LV diastolic function could not be adequately assessed due to atrial fibrilation. Regional wall motion abnormalities cannot be excluded due to limited visualization. Right Ventricle The right ventricle is mildly dilated. The right ventricular systolic function is normal. Atria The right atrium is mildly dilated. The left atrium is moderately dilated. Interarterial septum not well visualized and not well dopplered. Cannot comment on ASD/PFO presence. Mitral Valve The mitral valve is not well visualized. There is no mitral valve stenosis. There is a trace amount of mitral regurgitation. Aortic Valve The aortic valve is not well visualized secondary to technical limitations. There is no aortic valve stenosis. No aortic regurgitation is present. Tricuspid Valve The tricuspid valve is not well visualized secondary to technical limitations. There is no tricuspid stenosis. There is a trace to mild amount of tricuspid regurgitation. There is mild to moderate pulmonary hypertension by echo. Right ventricular systolic pressure is estimated to be elevated at 40-50mmHg. Pulmonic Valve The pulmonic valve is not well visualized. Great Vessels The aortic root is not well visualized but is probably normal size. The inferior vena cava appeared normal and decreased < 50% with respiration (RAP 10-15 mmHg). Effusions There is no pericardial effusion. : AILIN JONES > Ailin Jones
--- NOTE | 2017-07-28 19:43 | PDOC CONSULTATION ---
Consultation Consult Date: 07/28/17 Attending physician:: JODEE LYONS Consult reason:: Atrial fibrillation with rapid ventricular response History of Present Illness Admission Date/PCP: 07/27/17 01:07 DARRIN MELENDEZ MD Patient complains of: Shortness of breath, fatigue and tiredness History of Present Illness: LUIS A STEPHEN is a 82 year old female patient with multiple comorbidities including HTN, HLD, morbid obesity, COPD, diabetes mellitus and atrial fibrillation, presented with chief complaint of fever and shortness of breath. Patient reports this that she has been in her baseline state of up until Monday when she started to have generalized weakness, fever, abdominal pain and shortness of breath. Her initial workup shows urinalysis positive for nitrites and WBC 182. Her creatinine also mildly elevated which is 1.33. Chest x-ray is negative. Patient also noticed to have hypotension for which she got bolus of 2 L. Patient denies any chest pain, cough, or diarrhea. She did have nausea, vomiting and abdominal pain which resolved without intervention. Patient has underlying urinary incontinence but no dysuria. No orthopnea or paroxysmal nocturnal dyspnea. Patient was initially admitted to the second floor where there was no telemetry capacity noted. I was called because of patient having noted to have tachycardia and somewhat of the low blood pressure. I recommended that patient be transferred to a monitored floor. Subsequently when I saw the patient, she looked more comfortable than before. Was noted to have heart rate in the 110s. Blood pressure was in the 90s. Patient on questioning denied any chest pain. She was however noted to be somewhat lethargic. Past Medical History Cardiac Medical History: Reports: Atrial Fibrillation, Hyperlipidema, Hypertension Endocrine Medical History: Reports: Diabetes Mellitus Type 2 Psychiatric Medical History: Reports: Depression Social History Information Source: [facility] Records Smoking Status: Never Smoker Frequency of Alcohol Use: None Hx Recreational Drug Use: No Drugs: None Hx Prescription Drug Abuse: No - Advance Directive Resuscitation Status: Full Code Family History Family History: Reviewed & Not Pertinent Parental Family History Reviewed: Yes Children Family History Reviewed: Yes Sibling(s) Family History Reviewed.: Yes Medication/Allergy Home Medications: Albuterol Sulfate [Proair HFA Inhalation Aerosol 8.5 gm MDI] 2 puff IH Q4HP PRN 07/27/17 Alprazolam [Xanax] 2 mg PO Q8HP PRN 07/27/17 Anastrozole [Arimidex] 1 mg PO DAILY 07/27/17 Aspirin [Ecotrin 81 mg EC Tablet] 81 mg PO DAILY 07/27/17 Budesonide/Formoterol Fumarate [Symbicort 160-4.5 Mcg Inhaler] 2 puff IH Q12 06/11 Chlorpheniramine Maleate [Allergy Relief 4 mg Tablet] 4 mg PO Q6HP PRN 07/27/17 Dofetilide [Tikosyn] 250 mcg PO Q12 07/27/17 Duloxetine HCl [Cymbalta] 60 mg PO Q12 07/27/17 Ergocalciferol (Vitamin D2) [Drisdol 50,000 unit (1.25MG) Capsule] 50,000 mg PO LIANG@1000 07/27/17 Gabapentin [Neurontin 300 mg Capsule] 300 mg PO Q12 07/27/17 Ibuprofen [Motrin 800 mg Tablet] 800 mg PO Q12HP PRN 07/27/17 Latanoprost [Xalatan 0.005% Oph Soln 2.5 ml] 1 drop OU DAILY 07/27/17 Levothyroxine Sodium [Synthroid] 125 mcg PO ACBRKFST 07/27/17 Metformin HCl [Metformin HCl ER] 500 mg PO WSUPPER 07/27/17 Orphenadrine Citrate 100 mg PO Q12 07/27/17 Pantoprazole Sodium [Protonix] 40 mg PO DAILY 07/27/17 Tiotropium [place] [Spiriva Handihaler 5 Cap/Kit (18 Mcg/Cap)] 1 puff IH DAILY 07/27/17 Tolterodine Tartrate [Tolterodine Tartrate ER] 4 mg PO DAILY 07/27/17 Allergies/Adverse Reactions: Penicillins Allergy (Unknown, Verified 07/28/17 13:35) Generalized rash Sulfa (Sulfonamide Antibiotics) Allergy (Unknown, Verified 07/28/17 13:35) Generalized rash Review of Systems ROS unobtainable: Due to mental status, Other - Patient noted to be lethargic. Physical Exam Vital Signs: Temp Pulse Resp BP Pulse Ox 100.9 F H 116 H 20 132/64 H 91 L 07/28/17 15:45 07/28/17 16:12 07/28/17 15:45 05/04/18 15:45 07/28/17 15:45 Intake & Output 07/27/17 07/28/17 07/29/17 06:59 06:59 06:59 Intake Total 2112 120 Output Total 1100 650 Balance 1012 -530 Weight 128.2 kg Exam: GENERAL: well-nourished and in no acute distress. Alert and oriented x2. Patient noted to be somewhat lethargic but easily wakes up. HEAD: Atraumatic, normocephalic. EYES: Pupils equal round and reactive to light, extraocular movements intact, sclera anicteric, conjunctiva are normal. ENT: TMs normal, nares patent, oropharynx clear without exudates. Moist mucous membranes. No oral ulcerations or bleeding gums noted NECK: supple without lymphadenopathy. Trachea is central. No cervical or axillary lymphadenopathy noted. Carotids are 2+, JVD WNL LUNGS: Respiration seems nonlabored, no significant accessory muscle action noted. Bibasilar fine crackles and few a scattered wheezes rales or rhonchi noted. No significant dullness noted on percussion. CHEST: Palpation of the chest wall shows no significant chest wall tenderness. HEART: [place] [employer], No PSH, 1/6 NEDA aortic area, 1/6 ariza systolic murmur mitral area, no rubs, no gallops. ABDOMEN: Soft, no significant tenderness appreciated, normoactive bowel sounds. No guarding, no rebound. No rigidity noted . No masses appreciated. EXTREMITIES: Pedal pulses are 1-2+, no calf tenderness noted. No clubbing or cyanosis. negative pedal edema noted NEUROLOGICAL: Focused neurological exam showed no significant neurologic deficit. Normal speech, no focal weakness appreciated. PSYCH: Normal mood, normal affect. Judgment and insight not checked. SKIN: No significant ecchymosis, skin is noted to be warm. MUSCULOSKELETAL EXAM: No significant acute joint swelling noted. Results Laboratory Results: 07/28/17 06:12 07/28/17 06:12 07/28/17 07/28/17 07/28/17 06:12 06:12 10:31 WBC 13.3 H RBC 3.61 L Hgb 11.8 L D Hct 35.1 L MCV 97 MCH 32.8 MCHC 33.7 RDW 15.1 H Plt Count 119 L Seg Neutrophils % Not Reportable Lymphocytes % Not Reportable Monocytes % Not Reportable Eosinophils % Not Reportable Basophils % Not Reportable Absolute Neutrophils Not Reportable Absolute Lymphocytes Not Reportable Absolute Monocytes Not Reportable Absolute Eosinophils Not Reportable Absolute Basophils Not Reportable Sodium 137.8 Potassium 4.3 Chloride 104 Carbon Dioxide 20 L Anion Gap 14 BUN 35 H Creatinine 1.85 H Est GFR ( Amer) 32 L Est GFR (Non-Af Amer) 26 L Glucose 113 H Lactic Acid 1.0 Calcium 9.3 Phosphorus 3.8 Magnesium 1.6 EKG Comments: Atrial fibrillation with rapid ventricular response. Nonprogression of R-wave noted anterior precordial lead consistent with prior anteroseptal myocardial infarction. Impressions: Chest X-Ray 07/26/17 19:51 IMPRESSION: Left basilar atelectasis. Chest/Abdomen CTA 07/26/17 21:03 IMPRESSION: Scattered areas of subsegmental atelectasis are present in both lung bases. No dense consolidation or pleural effusion.No emboli visualized in the main pulmonary arteries or the segmental branches. Pneumobilia. Assessment & Plan - Diagnosis (2) Complicated UTI (urinary tract infection) Is this a current diagnosis for this admission?: Yes (3) CAD (coronary artery disease) Qualifiers: Coronary Disease-Associated Artery/Lesion type: [place] artery [place] vs. transplanted heart: [place] heart Associated angina: without angina Qualified Code(s): I25.10 - Atherosclerotic heart disease of [place] coronary artery without angina pectoris Is this a current diagnosis for this admission?: Yes (4) COPD (chronic obstructive pulmonary disease) Qualifiers: COPD type: unspecified COPD Qualified Code(s): J44.9 - Chronic obstructive pulmonary disease, unspecified Is this a current diagnosis for this admission?: Yes (5) Hypotension (arterial) Qualifiers: Hypotension type: unspecified hypotension type Qualified Code(s): I95.9 - Hypotension, unspecified Is this a current diagnosis for this admission?: Yes - Notes Notes: Atrial fibrillation with rapid ventricular response: Patient somewhat towards hypotensive range. At this point will give a dose of digoxin and see response. Height ventricular response could be because of his underlying sepsis and fever. Recommend Cardizem once patient blood pressure is improved. Hypotension: Agree with IV fluid boluses. Coronary artery disease: Symptomatically stable. EKG did not show any acute ischemia. COPD: Continue current therapy. Complicated UTI with possible urosepsis: Continue broad-spectrum antibiotics. Obesity: Patient has significant obesity. Currently is stable. - Time Time Spent: 30 to 50 Minutes - CODE STATUS was discussed, patient remains full code. Multiple medical problems were addressed. More than 50% of the time spent coordinating care, discussing management plans with involved caregivers. Management plans discussed with involved personnels. Medical decision making was of moderate to high complexity, patient's has multiple comorbidities. Medications reviewed and adjusted accordingly: Yes
--- NOTE | 2017-07-28 21:39 | EKG REPORT ---
SEVERITY:- ABNORMAL ECG - ATRIAL FIBRILLATION, V-RATE 97-135 BORDERLINE LEFT AXIS DEVIATION CONSIDER ANTEROSEPTAL INFARCT : Confirmed by: Ailin Lopez 28-Jul-2017 21:38:37
[2017-07-29] MEDS: LEVOTHYROXINE SODIUM 0.05 MG TABLET PO SCH (05:10)
[2017-07-29] MEDS: LANSOPRAZOLE 30 MG TAB.RAP.DR PO SCH (05:11)
[2017-07-29] MEDS: HEPARIN SOD (PORCINE) 5,000 UNIT/ML 1 ML SYRINGE SUBCUT SCH ×3 (05:17→22:29)
[2017-07-29 07:31] LABS: ANION GAP 10 (5-19); BLOOD UREA NITROGEN 31 mg/dL (7-20); CALCIUM 9.3 mg/dL (8.4-10.2); CARBON DIOXIDE 22 mmol/L (22-30); CHLORIDE 108 mmol/L (98-107); GLUCOSE 114 mg/dL (75-110); PHOSPHORUS 3.9 mg/dL (2.5-4.5); POTASSIUM 4.4 mmol/L (3.6-5.0); SODIUM 139.9 mmol/L (137-145)
[2017-07-29 07:34] LABS: HEMOGLOBIN 11.5 g/dL (12.0-15.5); MEAN CORPUSCULAR HEMOGLOBIN 32.4 pg (27.0-33.4); MEAN CORPUSCULAR HGB CONC 32.8 g/dL (32.0-36.0); MEAN CORPUSCULAR VOLUME 99 fl (80-97); RED BLOOD COUNT 3.54 10^6/uL (3.72-5.28); RED CELL DISTRIBUTION WIDTH 15.3 % (11.5-14.0); WHITE BLOOD COUNT 13.1 10^3/uL (4.0-10.5)
[2017-07-29 07:36] LABS: PLATELET COUNT 98 10^3/uL (150-450)
[2017-07-29 08:01] LABS: ABSOLUTE LYMPHOCYTES# (MANUAL) 0.8 10^3/uL (0.5-4.7); ABSOLUTE MONOCYTES # (MANUAL) 0.4 10^3/uL (0.1-1.4); ABSOLUTE NEUTROPHILS# (MANUAL) 11.9 10^3/uL (1.7-8.2); BASOPHILS % (MANUAL) 0 % (0-2); EOSINOPHILS % (MANUAL) 0 % (0-6); LYMPHOCYTES % (MANUAL) 6 % (13-45); MONOCYTES % (MANUAL) 3 % (3-13); SEGMENTED NEUTROPHILS % (MAN) 91 % (42-78); TOTAL CELLS COUNTED 100
[2017-07-29 08:06] LABS: ANISOCYTOSIS SLIGHT; PLATELET COMMENT DECREASED; POLYCHROMASIA SLIGHT; TOXIC GRANULATION 1+
[2017-07-29] MEDS ORDERED: NORMAL SALINE 1000 ML 1,000 ML IV PRN (08:23)
[2017-07-29] MEDS: ANASTROZOLE 1 MG TABLET PO SCH (10:03)
[2017-07-29] MEDS: BUDESONIDE/FORMOTEROL 160-4.5 MCG 60 PUFF/6 GM MDI IH SCH ×2 (10:08→22:41)
[2017-07-29] MEDS: ASPIRIN 81 MG TABLET, ENT COATED PO SCH (10:08)
[2017-07-29] MEDS: DOFETILIDE 125 MCG CAPSULE PO SCH ×2 (10:09→22:41)
[2017-07-29] MEDS: GABAPENTIN 300 MG CAPSULE PO SCH ×2 (10:09→22:41)
[2017-07-29] MEDS: LATANOPROST 0.005% OPH SOLN 2.5 ML OU SCH (10:10)
[2017-07-29] MEDS: TIOTROPIUM BROMIDE DPI 5 CAP/KIT (18 MCG/CAP) IH SCH (10:11)
--- NOTE | 2017-07-29 14:41 | PDOC PROGRESS REPORT ---
Subjective Progress Note for:: 07/29/17 Subjective:: Patient seems to be doing better with significant improvement. Pt is denying any chest arm or neck discomfort. Patient denying any PND, orthopnea. Patient denied any sustained palpitations, dizziness, syncope, near syncope. Patient denying any fever chills. Patient denying any other significant discomfort. Patient still having significant dyspnea and wheezing. Patient is maintaining sinus rhythm. Patient was in atrial fibrillation yesterday. Review of systems: Rest review of systems negative. Medications: Medications have been reviewed. Reason For Visit: ACUTE KIDNEY INJURY, COMPLICATED UTI Physical Exam Vital Signs: Temp Pulse Resp BP Pulse Ox 99.1 F 85 16 121/55 L 92 07/29/17 11:39 07/29/17 11:39 07/29/17 11:39 07/29/17 11:39 07/29/17 11:39 Intake & Output 07/28/17 07/29/17 07/30/17 06:59 06:59 06:59 Intake Total 2718 170 Output Total 1625 1450 Balance 1093 -1280 Weight 128.2 kg 147.5 kg 147.5 kg Exam: GENERAL: well-nourished and in no acute distress. Alert and oriented x3 HEAD: Atraumatic, normocephalic. EYES: Pupils equal round and reactive to light, extraocular movements intact, sclera anicteric, conjunctiva are normal. ENT: TMs normal, nares patent, oropharynx clear without exudates. Moist mucous membranes. No oral ulcerations or bleeding gums noted NECK: supple without lymphadenopathy. Trachea is central. No cervical or axillary lymphadenopathy noted. Carotids are 2+, JVD WNL LUNGS: Respiration seems nonlabored, no significant accessory muscle action noted. Bilateral wheezes rales or rhonchi noted. Bibasilar fine crackles are noted. No significant dullness noted on percussion. CHEST: Palpation of the chest wall shows no significant chest wall tenderness. 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 ABDOMEN: Soft, no significant tenderness appreciated, normoactive bowel sounds. No guarding, no rebound. No rigidity noted . No masses appreciated. EXTREMITIES: Pedal pulses are 1-2+, no calf tenderness noted. No clubbing or cyanosis. 1+ pedal edema noted NEUROLOGICAL: Focused neurological exam showed no significant neurologic deficit. Normal speech, no focal weakness appreciated. PSYCH: Normal mood, normal affect. Judgment and insight within normal limits. SKIN: No significant ecchymosis, skin is noted to be warm. MUSCULOSKELETAL EXAM: No significant acute joint swelling noted. Results Laboratory Results: 07/29/17 06:44 07/29/17 06:44 07/29/17 07/29/17 06:44 06:44 WBC 13.1 H RBC 3.54 L Hgb 11.5 L Hct 35.0 L MCV 99 H MCH 32.4 MCHC 32.8 RDW 15.3 H Plt Count 98 L Seg Neutrophils % Not Reportable Lymphocytes % Not Reportable Monocytes % Not Reportable Eosinophils % Not Reportable Basophils % Not Reportable Absolute Neutrophils Not Reportable Absolute Lymphocytes Not Reportable Absolute Monocytes Not Reportable Absolute Eosinophils Not Reportable Absolute Basophils Not Reportable Sodium 139.9 Potassium 4.4 Chloride 108 H Carbon Dioxide 22 Anion Gap 10 BUN 31 H Creatinine 1.06 Est GFR ( Amer) > 60 Est GFR (Non-Af Amer) 50 L Glucose 114 H Calcium 9.3 Phosphorus 3.9 Magnesium 1.8 07/27/17 04:05 Blood Blood Culture - Final Proteus Mirabilis 07/27/17 03:55 Blood Blood Culture - Final Proteus Mirabilis Impressions: Chest X-Ray 07/26/17 19:51 IMPRESSION: Left basilar atelectasis. Chest/Abdomen CTA 07/26/17 21:03 IMPRESSION: Scattered areas of subsegmental atelectasis are present in both lung bases. No dense consolidation or pleural effusion.No emboli visualized in the main pulmonary arteries or the segmental branches. Pneumobilia. Assessment & Plan - Diagnosis (1) Atrial fibrillation with RVR Is this a current diagnosis for this admission?: Yes (2) Complicated UTI (urinary tract infection) Is this a current diagnosis for this admission?: Yes (3) CAD (coronary artery disease) Qualifiers: Coronary Disease-Associated Artery/Lesion type: [place] artery [place] vs. transplanted heart: [place] heart Associated angina: without angina Qualified Code(s): I25.10 - Atherosclerotic heart disease of [place] coronary artery without angina pectoris Is this a current diagnosis for this admission?: Yes (4) COPD (chronic obstructive pulmonary disease) Qualifiers: COPD type: unspecified COPD Qualified Code(s): J44.9 - Chronic obstructive pulmonary disease, unspecified Is this a current diagnosis for this admission?: Yes (5) Hypotension (arterial) Qualifiers: Hypotension type: unspecified hypotension type Qualified Code(s): I95.9 - Hypotension, unspecified Is this a current diagnosis for this admission?: Yes - Notes Notes: Atrial fibrillation with rapid ventricular response: Patient converted to sinus rhythm. Currently has mild sinus tachycardia. Consider starting Cardizem at low-dose. Hypotension: Agree with IV fluid boluses. Blood pressure seems reasonably stable. Coronary artery disease: Symptomatically stable. EKG did not show any acute ischemia. COPD: Continue current therapy. Complicated UTI with possible urosepsis: Continue broad-spectrum antibiotics. Obesity: Patient has significant obesity. Currently is stable. - Time Time with patient: Greater than 35 minutes - CODE STATUS was discussed, patient remains full code. Surrogate decision-maker unchanged. Multiple medical problems were addressed. More than 50% of the time spent coordinating care, discussing management plans with involved caregivers. Management plans discussed with involved personnels. Medical decision making was of moderate to high complexity, patient's has multiple comorbidities. Medications reviewed and adjusted accordingly: Yes
--- NOTE | 2017-07-29 15:11 | PDOC PROGRESS REPORT ---
Subjective Progress Note for:: 07/29/17 Subjective:: Taya Ibarra is a 82 year old female who presented to the emergency department 07/27/2017 for fever and shortness of breath. She was admitted for UTI and AK I. She has a PMH of HTN, HLD, morbid obesity, COPD, diabetes, atrial fibrillation. The patient was seen this morning on rounds, she is resting comfortably in bed on supplemental oxygen. Patient appears very drowsy this morning although she is able to answer all questions appropriately. She denies complaints but is drifting off to sleep in between each question. Her HYPOtension and TACHYcardia have greatly improved today. Additionally, her urine output has increased following adequate fluid resuscitation. Reason For Visit: ACUTE KIDNEY INJURY, COMPLICATED UTI Physical Exam Vital Signs: Temp Pulse Resp BP Pulse Ox 99.1 F 85 16 121/55 L 92 07/29/17 11:39 07/29/17 11:39 07/29/17 11:39 07/29/17 11:39 07/29/17 11:39 Intake & Output 07/28/17 07/29/17 07/30/17 06:59 06:59 06:59 Intake Total 2718 170 Output Total 1625 1450 Balance 1093 -1280 Weight 128.2 kg 147.5 kg General appearance: PRESENT: no acute distress, morbidly obese Eye exam: PRESENT: conjunctiva pink, EOMI, PERRLA Mouth exam: PRESENT: moist Teeth exam: PRESENT: poor dentation Neck exam: PRESENT: full ROM Respiratory exam: PRESENT: clear to auscultation britt, symmetrical, unlabored, wheezes Cardiovascular exam: PRESENT: irregular rhythm, +S1, +S2 Pulses: PRESENT: normal radial pulses, normal dorsalis pedis pul Vascular exam: PRESENT: normal capillary refill GI/Abdominal exam: PRESENT: normal bowel sounds, soft. ABSENT: tenderness Rectal exam: PRESENT: deferred Extremities exam: PRESENT: full ROM Musculoskeletal exam: PRESENT: ambulatory, full ROM Neurological exam: PRESENT: alert, awake, oriented to person, oriented to place , oriented to time, oriented to situation Psychiatric exam: PRESENT: appropriate affect Skin exam: PRESENT: dry, intact. ABSENT: cyanosis Results Laboratory Results: 07/29/17 06:44 07/29/17 06:44 07/29/17 07/29/17 06:44 06:44 WBC 13.1 H RBC 3.54 L Hgb 11.5 L Hct 35.0 L MCV 99 H MCH 32.4 MCHC 32.8 RDW 15.3 H Plt Count 98 L Seg Neutrophils % Not Reportable Lymphocytes % Not Reportable Monocytes % Not Reportable Eosinophils % Not Reportable Basophils % Not Reportable Absolute Neutrophils Not Reportable Absolute Lymphocytes Not Reportable Absolute Monocytes Not Reportable Absolute Eosinophils Not Reportable Absolute Basophils Not Reportable Sodium 139.9 Potassium 4.4 Chloride 108 H Carbon Dioxide 22 Anion Gap 10 BUN 31 H Creatinine 1.06 Est GFR ( Amer) > 60 Est GFR (Non-Af Amer) 50 L Glucose 114 H Calcium 9.3 Phosphorus 3.9 Magnesium 1.8 07/27/17 04:05 Blood Blood Culture - Final Proteus Mirabilis 07/27/17 03:55 Blood Blood Culture - Final Proteus Mirabilis Impressions: Chest X-Ray 07/26/17 19:51 IMPRESSION: Left basilar atelectasis. Chest/Abdomen CTA 07/26/17 21:03 IMPRESSION: Scattered areas of subsegmental atelectasis are present in both lung bases. No dense consolidation or pleural effusion.No emboli visualized in the main pulmonary arteries or the segmental branches. Pneumobilia. Status: Imported from PACS Assessment & Plan - Diagnosis (1) Sepsis Qualifiers: Sepsis type: sepsis due to unspecified organism Qualified Code(s): A41.9 - Sepsis, unspecified organism Is this a current diagnosis for this admission?: Yes Plan: Sepsis due to UTI as evidenced by GNR and blood and urine cultures, low-grade temperature (100.8), tachycardia (135-140bpm), lactate > 2, and leukocytosis (13 ,000 cells/mm) Urine and blood culture positive for Proteus Mirabilis, sensitivities are resulted today. Susceptible to IV Levaquin. Continue current regimen IV Levaquin (patient has allergy to PCN) Continue maintenance IVF at 75mL/hr. The patient endorses recent history of urinary incontinence. She states that she has been seen by a urologist. Poor perineal hygiene and her immobility are very likely the causes of her UTI. Ortiz catheter placed in the emergency department, will continue for accurate UOP in the setting of ARF (2) Complicated UTI (urinary tract infection) Is this a current diagnosis for this admission?: Yes Plan: Plan as above (3) ARF (acute renal failure) Qualifiers: Acute renal failure type: unspecified Qualified Code(s): N17.9 - Acute kidney failure, unspecified Is this a current diagnosis for this admission?: Yes Plan: Etiology is likely prerenal secondary to sepsis and dehydration Baseline creatinine is< 1.0 Condition improving today, creatinine decreased from 1.8 to 1.06 Patient appears to be adequately fluid resuscitated, decreased IVF maintenance rate from 150-75 ml/hr Nursing staff reports that urine output has greatly improved over the last 24 hours. (4) COPD (chronic obstructive pulmonary disease) Qualifiers: Emphysema type: unspecified Is this a current diagnosis for this admission?: Yes Plan: Patient endorses a history of COPD. She is followed by Dr. Monae as an outpatient. Lungs are clear to auscultation in all lung n[place]jo Continue home dose inhalers, Spiriva and Symbicort. PRN nebulizer treatments. (5) A-fib Qualifiers: Atrial fibrillation type: chronic Qualified Code(s): I48.2 - Chronic atrial fibrillation Is this a current diagnosis for this admission?: Yes Plan: The patient endorses a history of AFIB, currently taking Tikosyn (home medication) for rate/rhythm control. EKG shows sinus arrythmia, no AFIB or acute infarct/ischemia Cardiology was consulted by lima for tachycardia, recommend switching to Digoxin (6) Morbid obesity Is this a current diagnosis for this admission?: Yes Plan: Morbid obesity is quantified as a BMI > 35. This patient's BMI is 44 Utilize discretion when making dietary choices for this patient. Appreciate serology teacher recommendations. - Time Time Spent with patient: 15-24 minutes Medications reviewed and adjusted accordingly: Yes Anticipated discharge: Home - Inpatient Certification Based on my medical assessment, after consideration of the patient's comorbidities, presenting symptoms, or acuity I expect that the services needed warrant INPATIENT care.: Yes I certify that my determination is in accordance with my understanding of Medicare's requirements for reasonable and necessary INPATIENT services [42 CFR 412.3e].: Yes Medical Necessity: Need for IV Antibiotics, Risk of Complication if Not Cared For in Hospital
[2017-07-29] MEDS: IPRATROPIUM/ALBUTEROL 0.5-2.5 MG/3 ML AMPUL NEB PRN (15:28)
[2017-07-29 16:33] LABS: ARTERIAL BLOOD BASE EXCESS -2.2 mmol/L; ARTERIAL BLOOD FIO2 2L; ARTERIAL BLOOD H2CO3 1.66 mmol/L (1.05-1.35); ARTERIAL BLOOD HCO3 25.2 mmol/L (20-26); ARTERIAL BLOOD O2 SATURATION 93.9 % (94-98); ARTERIAL BLOOD PH 7.28 (7.35-7.45); ARTERIAL BLOOD PO2 78.7 mmHg (80-100); ARTERIAL BLOOD TOTAL CO2 26.9 mmol/L (21-25)
[2017-07-29] MEDS ORDERED: FUROSEMIDE INJ/PF 20 MG/2 ML SDV IV ONE (16:36)
[2017-07-29] MEDS ORDERED: LORAZEPAM INJ 2 MG/1 ML VIAL IV PRN (16:48)
--- NOTE | 2017-07-29 17:04 | RADIOLOGY REPORT (SQ) ---
EXAM DESCRIPTION: CHEST SINGLE VIEW COMPLETED DATE/TIME: 07/29/2017 4:44 pm REASON FOR STUDY: change in respiratory status. Acute hypoxia COMPARISON: 07/26/2017 NUMBER OF VIEWS: One view. TECHNIQUE: Single frontal radiographic view of the chest acquired. LIMITATIONS: None. FINDINGS: LUNGS AND PLEURA: Low lung volumes. No opacities, masses or pneumothorax. No pleural eff usion. Basilar atelectasis. MEDIASTINUM AND HILAR STRUCTURES: No masses. No contour abnormality. HEART AND VASCULAR STRUCTURES: Normal size. No evidence for failure. BONES: No acute findings. HARDWARE: Sternal wires. OTHER: No other significant finding. IMPRESSION: LOW LUNG VOLUMES. Basilar atelectasis. TECHNICAL DOCUMENTATION: JOB ID: [id number] [employer]- All Rights Reserved Reading location - IP/workstation name: [email or web address]
[2017-07-29 18:22] LABS: ARTERIAL BLOOD BASE EXCESS -0.5 mmol/L; ARTERIAL BLOOD FIO2 35%; ARTERIAL BLOOD H2CO3 1.44 mmol/L (1.05-1.35); ARTERIAL BLOOD HCO3 25.6 mmol/L (20-26); ARTERIAL BLOOD O2 SATURATION 97.7 % (94-98); ARTERIAL BLOOD PCO2 47.9 mmHg (35-45); ARTERIAL BLOOD PH 7.35 (7.35-7.45); ARTERIAL BLOOD PO2 108.8 mmHg (80-100); ARTERIAL BLOOD TOTAL CO2 27.1 mmol/L (21-25)
[2017-07-29] MEDS: LEVOFLOXACIN 750 MG/D5W RTU 750 MG/150 ML RTUPB IV SCH (22:42)
[2017-07-30 05:06] LABS: ANION GAP 7 (5-19); BLOOD UREA NITROGEN 23 mg/dL (7-20); CALCIUM 9.8 mg/dL (8.4-10.2); CARBON DIOXIDE 29 mmol/L (22-30); CHLORIDE 107 mmol/L (98-107); GLUCOSE 102 mg/dL (75-110); PHOSPHORUS 2.3 mg/dL (2.5-4.5); POTASSIUM 3.8 mmol/L (3.6-5.0); SODIUM 143.2 mmol/L (137-145)
[2017-07-30] MEDS: HEPARIN SOD (PORCINE) 5,000 UNIT/ML 1 ML SYRINGE SUBCUT SCH ×3 (05:52→21:35)
[2017-07-30] MEDS: LEVOTHYROXINE SODIUM 0.05 MG TABLET PO SCH (06:26)
[2017-07-30] MEDS: LANSOPRAZOLE 30 MG TAB.RAP.DR PO SCH (06:26)
[2017-07-30 07:03] LABS: ABSOLUTE EOSINOPHILS # (AUTO) 0.1 10^3/uL (0.0-0.6); ABSOLUTE LYMPHOCYTES (AUTO) 0.7 10^3/uL (0.5-4.7); ABSOLUTE MONOCYTES (AUTO) 0.9 10^3/uL (0.1-1.4); BASOPHILS % (AUTO) 0.2 % (0-2); EOSINOPHILS % (AUTO) 1.2 % (0-6); HEMOGLOBIN 11.7 g/dL (12.0-15.5); LYMPHOCYTES % (AUTO) 7.3 % (13-45); MEAN CORPUSCULAR HEMOGLOBIN 32.6 pg (27.0-33.4); MEAN CORPUSCULAR HGB CONC 33.5 g/dL (32.0-36.0); MEAN CORPUSCULAR VOLUME 97 fl (80-97); MONOCYTES % (AUTO) 8.9 % (3-13); SEGMENTED NEUTROPHILS % (AUTO) 82.4 % (42-78); TOTAL CELLS COUNTED % (AUTO) 100 %; WHITE BLOOD COUNT 9.7 10^3/uL (4.0-10.5)
[2017-07-30 07:29] LABS: PLATELET COUNT 94 10^3/uL (150-450)
[2017-07-30 08:50] LABS: ARTERIAL BLOOD BASE EXCESS 2.5 mmol/L; ARTERIAL BLOOD FIO2 35%; ARTERIAL BLOOD H2CO3 1.27 mmol/L (1.05-1.35); ARTERIAL BLOOD HCO3 27.2 mmol/L (20-26); ARTERIAL BLOOD O2 SATURATION 97.7 % (94-98); ARTERIAL BLOOD PCO2 42.3 mmHg (35-45); ARTERIAL BLOOD PH 7.43 (7.35-7.45); ARTERIAL BLOOD PO2 100.6 mmHg (80-100); ARTERIAL BLOOD TOTAL CO2 28.5 mmol/L (21-25)
[2017-07-30] MEDS ORDERED: ERGOCALCIFEROL (VITAMIN D2) 50000 UNIT (1.25 MG) CAPSULE PO SCH (10:00)
[2017-07-30] MEDS ORDERED: POTASSIUM CHLORIDE 10 MEQ TABLET.SA PO ONE ×2 (10:28→12:00)
[2017-07-30] MEDS ORDERED: MAGNESIUM SULFATE/D5W 1 GM/100 ML RTUPB IV ONE ×2 (10:28→12:00)
[2017-07-30] MEDS ORDERED: FUROSEMIDE INJ/PF 20 MG/2 ML SDV ONE (10:28)
[2017-07-30] MEDS: ASPIRIN 81 MG TABLET, ENT COATED PO SCH (10:30)
[2017-07-30] MEDS: GABAPENTIN 300 MG CAPSULE PO SCH ×2 (10:30→21:38)
[2017-07-30] MEDS: TIOTROPIUM BROMIDE DPI 5 CAP/KIT (18 MCG/CAP) IH SCH (10:38)
[2017-07-30] MEDS: LATANOPROST 0.005% OPH SOLN 2.5 ML OU SCH (10:38)
[2017-07-30] MEDS: DOFETILIDE 125 MCG CAPSULE PO SCH ×2 (10:39→21:38)
[2017-07-30] MEDS: ANASTROZOLE 1 MG TABLET PO SCH (10:41)
[2017-07-30] MEDS: BUDESONIDE/FORMOTEROL 160-4.5 MCG 60 PUFF/6 GM MDI IH SCH ×2 (10:41→21:41)
[2017-07-30] MEDS ORDERED: FUROSEMIDE INJ/PF 20 MG/2 ML SDV IV ONE (11:45)
[2017-07-30] MEDS: IPRATROPIUM/ALBUTEROL 0.5-2.5 MG/3 ML AMPUL NEB SCH ×3 (12:00→19:47)
--- NOTE | 2017-07-30 13:05 | PDOC PROGRESS REPORT ---
Subjective Progress Note for:: 07/30/17 Subjective:: Patient seems to be doing better. Pt is denying any chest arm or neck discomfort. Patient denying any PND, orthopnea. Patient denied any sustained palpitations, dizziness, syncope, near syncope. Patient denying any fever chills. Patient denying any other significant discomfort. Wheezing and dyspnea has improved. Patient is maintaining sinus rhythm. Patient was in atrial fibrillation yesterday. Review of systems: Rest review of systems negative. Medications: Medications have been reviewed. Reason For Visit: ACUTE KIDNEY INJURY, COMPLICATED UTI Physical Exam Vital Signs: Temp Pulse Resp BP Pulse Ox 99.4 F 84 20 128/53 H 97 07/30/17 07:38 07/30/17 12:00 07/30/17 12:00 07/30/17 07:38 07/30/17 12:00 Intake & Output 07/29/17 07/30/17 07/31/17 06:59 06:59 06:59 Intake Total 170 7360 Output Total 1450 5350 Balance -1280 2009 Weight 147.5 kg 147.5 kg Exam: GENERAL: well-nourished and in no acute distress. Alert and oriented x3 HEAD: Atraumatic, normocephalic. EYES: Pupils equal round and reactive to light, extraocular movements intact, sclera anicteric, conjunctiva are normal. ENT: TMs normal, nares patent, oropharynx clear without exudates. Moist mucous membranes. No oral ulcerations or bleeding gums noted NECK: supple without lymphadenopathy. Trachea is central. No cervical or axillary lymphadenopathy noted. Carotids are 2+, JVD WNL LUNGS: Respiration seems nonlabored, no significant accessory muscle action noted. Bibasilar fine crackles with few a scattered wheezes rales or rhonchi noted. No significant dullness noted on percussion. CHEST: Palpation of the chest wall shows no significant chest wall tenderness. 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 ABDOMEN: Soft, no significant tenderness appreciated, normoactive bowel sounds. No guarding, no rebound. No rigidity noted . No masses appreciated. EXTREMITIES: Pedal pulses are 1-2+, no calf tenderness noted. No clubbing or cyanosis. 1-2+ pedal edema noted NEUROLOGICAL: Focused neurological exam showed no significant neurologic deficit. Normal speech, no focal weakness appreciated. PSYCH: Normal mood, normal affect. Judgment and insight within normal limits. SKIN: No significant ecchymosis, skin is noted to be warm. MUSCULOSKELETAL EXAM: No significant acute joint swelling noted. Results Laboratory Results: 07/30/17 06:05 07/30/17 04:25 07/29/17 07/29/17 07/30/17 15:55 18:05 04:25 WBC Cancelled RBC Cancelled Hgb Cancelled Hct Cancelled MCV Cancelled MCH Cancelled MCHC Cancelled RDW Cancelled Plt Count Cancelled Seg Neutrophils % Cancelled Lymphocytes % Cancelled Monocytes % Cancelled Eosinophils % Cancelled Basophils % Cancelled Absolute Neutrophils Cancelled Absolute Lymphocytes Cancelled Absolute Monocytes Cancelled Absolute Eosinophils Cancelled Absolute Basophils Cancelled Carbonic Acid 1.66 H 1.44 H HCO3/H2CO3 Ratio 15:1 17:1 ABG pH 7.28 L 7.35 ABG pCO2 55.0 H 47.9 H ABG pO2 78.7 L 108.8 H ABG HCO3 25.2 25.6 ABG O2 Saturation 93.9 L 97.7 ABG Base Excess -2.2 -0.5 FiO2 2L 35% Sodium Potassium Chloride Carbon Dioxide Anion Gap BUN Creatinine Est GFR ( Amer) Est GFR (Non-Af Amer) Glucose Calcium Phosphorus Magnesium 07/30/17 07/30/17 07/30/17 04:25 06:05 08:05 WBC 9.7 RBC 3.60 L Hgb 11.7 L Hct 35.0 L MCV 97 MCH 32.6 MCHC 33.5 RDW 15.0 H Plt Count 94 L Seg Neutrophils % 82.4 H Lymphocytes % 7.3 L Monocytes % 8.9 Eosinophils % 1.2 Basophils % 0.2 Absolute Neutrophils 8.0 Absolute Lymphocytes 0.7 Absolute Monocytes 0.9 Absolute Eosinophils 0.1 Absolute Basophils 0.0 Carbonic Acid 1.27 HCO3/H2CO3 Ratio 21:1 ABG pH 7.43 ABG pCO2 42.3 ABG pO2 100.6 H ABG HCO3 27.2 H ABG O2 Saturation 97.7 ABG Base Excess 2.5 FiO2 35% Sodium 143.2 Potassium 3.8 Chloride 107 Carbon Dioxide 29 Anion Gap 7 BUN 23 H Creatinine 0.79 Est GFR ( Amer) > 60 Est GFR (Non-Af Amer) > 60 Glucose 102 Calcium 9.8 Phosphorus 2.3 L Magnesium 1.7 EKG Comments: Twelve-lead EKG shows sinus rhythm, no acute ST-T wave changes noted. Impressions: Chest/Abdomen CTA 07/26/17 21:03 IMPRESSION: Scattered areas of subsegmental atelectasis are present in both lung bases. No dense consolidation or pleural effusion.No emboli visualized in the main pulmonary arteries or the segmental branches. Pneumobilia. Chest X-Ray 07/29/17 00:00 IMPRESSION: LOW LUNG VOLUMES. Basilar atelectasis. Assessment & Plan - Diagnosis (1) Atrial fibrillation with RVR Is this a current diagnosis for this admission?: Yes (2) Complicated UTI (urinary tract infection) Is this a current diagnosis for this admission?: Yes (3) CAD (coronary artery disease) Qualifiers: Coronary Disease-Associated Artery/Lesion type: [place] artery [place] vs. transplanted heart: [place] heart Associated angina: without angina Qualified Code(s): I25.10 - Atherosclerotic heart disease of [place] coronary artery without angina pectoris Is this a current diagnosis for this admission?: Yes (4) COPD (chronic obstructive pulmonary disease) Qualifiers: COPD type: unspecified COPD Qualified Code(s): J44.9 - Chronic obstructive pulmonary disease, unspecified Is this a current diagnosis for this admission?: Yes (5) Hypotension (arterial) Qualifiers: Hypotension type: unspecified hypotension type Qualified Code(s): I95.9 - Hypotension, unspecified Is this a current diagnosis for this admission?: Yes - Notes Notes: EKG today shows sinus rhythm. QTC WNL. Blood pressure has been stable for last 24 hours. Will start patient on Cardizem CD 120 mg p.o. daily. Atrial fibrillation with rapid ventricular response: Patient converted to sinus rhythm. Currently has mild sinus tachycardia. Consider starting Cardizem at low-dose. Continue antiarrhythmic therapy with dofetilide. Hypotension: Blood pressure seems reasonably stable. Started patient on Cardizem CD 120 mg p.o. daily. Coronary artery disease: Symptomatically stable. EKG did not show any acute ischemia. COPD: Continue current therapy. Complicated UTI with possible urosepsis: Continue broad-spectrum antibiotics. Obesity: Patient has significant obesity. Currently is stable. - Time Time with patient: Greater than 35 minutes - CODE STATUS was discussed, patient remains full code. Surrogate decision-maker unchanged. Multiple medical problems were addressed. More than 50% of the time spent coordinating care, discussing management plans with involved caregivers. Management plans discussed with involved personnels. Medical decision making was of moderate to high complexity, patient's has multiple comorbidities. Medications reviewed and adjusted accordingly: Yes
[2017-07-30] MEDS ORDERED: LIDOCAINE 5% (700 MG) TRANSDERMAL ADH..PATCH TP ONE (15:59)
[2017-07-30] MEDS ORDERED: KETOROLAC TROMETHAMINE INJ/PF 30 MG/1 ML SDV IV ONE (15:59)
--- NOTE | 2017-07-30 16:33 | PDOC PROGRESS REPORT ---
Subjective Progress Note for:: 07/30/17 Subjective:: Taya Ibarra is a 82 year old female who presented to the emergency department 07/27/2017 for fever and shortness of breath. She was admitted for UTI and AK I. She has a PMH of HTN, HLD, morbid obesity, COPD, diabetes, atrial fibrillation. Nursing staff reported that the patient was very somnolent yesterday afternoon, ABG revealed respiratory acidosis (ph 7.29 CO2 55 pO2 78) , and crackles can be heard bilaterally. The patient was given a dose of IV Lasix and was placed on BiPAP. She remained on BiPAP overnight, repeat ABG in the morning had normalized. The patient was evaluated this morning on rounds, her lungs were clear to auscultation in all lung naranjo. She was drowsy but arousable and able to answer all questions appropriately. Plan to remove BIPAP for daytime hours and monitor closely. Reason For Visit: ACUTE KIDNEY INJURY, COMPLICATED UTI Physical Exam Vital Signs: Temp Pulse Resp BP Pulse Ox 99.4 F 84 20 128/53 H 97 07/30/17 07:38 07/30/17 12:00 07/30/17 12:00 07/30/17 07:38 07/30/17 12:00 Intake & Output 07/29/17 07/30/17 07/31/17 06:59 06:59 06:59 Intake Total 170 7360 Output Total 1450 5350 Balance -1280 2009 Weight 147.5 kg 147.5 kg General appearance: PRESENT: no acute distress, cooperative, morbidly obese Eye exam: PRESENT: conjunctiva pink, PERRLA Mouth exam: PRESENT: moist Teeth exam: PRESENT: poor dentation Neck exam: PRESENT: full ROM Respiratory exam: PRESENT: clear to auscultation britt, symmetrical, unlabored Cardiovascular exam: PRESENT: +S1, +S2 Pulses: PRESENT: normal radial pulses, normal dorsalis pedis pul Vascular exam: PRESENT: normal capillary refill GI/Abdominal exam: PRESENT: normal bowel sounds, soft. ABSENT: tenderness Rectal exam: PRESENT: deferred Gentrourinary exam: PRESENT: indwelling catheter Extremities exam: PRESENT: +1 edema - both hands. ABSENT: pedal edema Musculoskeletal exam: PRESENT: ambulatory - With assistance Neurological exam: PRESENT: alert, awake, oriented to person, oriented to place , oriented to time, oriented to situation Psychiatric exam: PRESENT: appropriate affect Skin exam: PRESENT: normal color Results Laboratory Results: 07/30/17 06:05 07/30/17 04:25 07/29/17 07/29/17 07/30/17 15:55 18:05 04:25 WBC Cancelled RBC Cancelled Hgb Cancelled Hct Cancelled MCV Cancelled MCH Cancelled MCHC Cancelled RDW Cancelled Plt Count Cancelled Seg Neutrophils % Cancelled Lymphocytes % Cancelled Monocytes % Cancelled Eosinophils % Cancelled Basophils % Cancelled Absolute Neutrophils Cancelled Absolute Lymphocytes Cancelled Absolute Monocytes Cancelled Absolute Eosinophils Cancelled Absolute Basophils Cancelled Carbonic Acid 1.66 H 1.44 H HCO3/H2CO3 Ratio 15:1 17:1 ABG pH 7.28 L 7.35 ABG pCO2 55.0 H 47.9 H ABG pO2 78.7 L 108.8 H ABG HCO3 25.2 25.6 ABG O2 Saturation 93.9 L 97.7 ABG Base Excess -2.2 -0.5 FiO2 2L 35% Sodium Potassium Chloride Carbon Dioxide Anion Gap BUN Creatinine Est GFR ( Amer) Est GFR (Non-Af Amer) Glucose Calcium Phosphorus Magnesium 07/30/17 07/30/17 07/30/17 04:25 06:05 08:05 WBC 9.7 RBC 3.60 L Hgb 11.7 L Hct 35.0 L MCV 97 MCH 32.6 MCHC 33.5 RDW 15.0 H Plt Count 94 L Seg Neutrophils % 82.4 H Lymphocytes % 7.3 L Monocytes % 8.9 Eosinophils % 1.2 Basophils % 0.2 Absolute Neutrophils 8.0 Absolute Lymphocytes 0.7 Absolute Monocytes 0.9 Absolute Eosinophils 0.1 Absolute Basophils 0.0 Carbonic Acid 1.27 HCO3/H2CO3 Ratio 21:1 ABG pH 7.43 ABG pCO2 42.3 ABG pO2 100.6 H ABG HCO3 27.2 H ABG O2 Saturation 97.7 ABG Base Excess 2.5 FiO2 35% Sodium 143.2 Potassium 3.8 Chloride 107 Carbon Dioxide 29 Anion Gap 7 BUN 23 H Creatinine 0.79 Est GFR ( Amer) > 60 Est GFR (Non-Af Amer) > 60 Glucose 102 Calcium 9.8 Phosphorus 2.3 L Magnesium 1.7 Impressions: Chest/Abdomen CTA 07/26/17 21:03 IMPRESSION: Scattered areas of subsegmental atelectasis are present in both lung bases. No dense consolidation or pleural effusion.No emboli visualized in the main pulmonary arteries or the segmental branches. Pneumobilia. Chest X-Ray 07/29/17 00:00 IMPRESSION: LOW LUNG VOLUMES. Basilar atelectasis. Status: Imported from PACS Assessment & Plan - Diagnosis (1) Sepsis Qualifiers: Sepsis type: sepsis due to unspecified organism Qualified Code(s): A41.9 - Sepsis, unspecified organism Is this a current diagnosis for this admission?: Yes Plan: Sepsis due to UTI as evidenced by GNR and blood and urine cultures, low-grade temperature (100.8), tachycardia (135-140bpm), lactate > 2, and leukocytosis (13 ,000 cells/mm) Urine and blood culture positive for Proteus Mirabilis, sensitivities are resulted today. Susceptible to IV Levaquin. Continue current regimen IV Levaquin (patient has allergy to PCN) The patient endorses recent history of urinary incontinence. She states that she has been seen by a urologist. Poor perineal hygiene and her immobility are very likely the causes of her UTI. Ortiz catheter placed in the emergency department, will continue for accurate UOP in the setting of ARF (2) Complicated UTI (urinary tract infection) Is this a current diagnosis for this admission?: Yes Plan: Plan as above (3) ARF (acute renal failure) Qualifiers: Acute renal failure type: unspecified Qualified Code(s): N17.9 - Acute kidney failure, unspecified Is this a current diagnosis for this admission?: Yes Plan: Etiology is likely prerenal secondary to sepsis and dehydration Baseline creatinine is< 1.0 Condition improving today, creatinine peaked at 1.86 now down to 0.76 Patient appears to be adequately fluid resuscitated. Discontinued IVF given yesterday's episode of somnolence, volume overload, requiring lasix. Nursing staff reports that urine output has greatly improved over the last 24 hours. (4) COPD (chronic obstructive pulmonary disease) Qualifiers: Emphysema type: unspecified Is this a current diagnosis for this admission?: Yes Plan: Patient endorses a history of COPD. She is followed by Dr. Monae as an outpatient. Lungs are clear to auscultation in all lung naranjo Continue home dose inhalers, Spiriva and Symbicort. The patient required placement of BIPAP yesterday for respiratory acidosis (as well as diuresis for volume overload) Her ABG normalized overnight and the patient was much more awake this morning. Discontinued BIPAP and placed on nasal cannula. Continue scheduled nebulizer treatments. (5) A-fib Qualifiers: Atrial fibrillation type: chronic Qualified Code(s): I48.2 - Chronic atrial fibrillation Is this a current diagnosis for this admission?: Yes Plan: The patient endorses a history of AFIB, currently taking Tikosyn (home medication) for rate/rhythm control. EKG shows sinus arrythmia, no AFIB or acute infarct/ischemia While inpatient, she did experience an episode of sustained AFIB, for which she was placed on digoxin by cardiology AFIB has since resolved, she is back in NSR. Digoxin has been discontinued, resumed Tikosyn (6) Morbid obesity Is this a current diagnosis for this admission?: Yes Plan: Morbid obesity is quantified as a BMI > 35. This patient's BMI is 44 Utilize discretion when making dietary choices for this patient. Appreciate engineering director recommendations. - Time Time Spent with patient: 15-24 minutes Medications reviewed and adjusted accordingly: Yes Anticipated discharge: Home - Inpatient Certification Based on my medical assessment, after consideration of the patient's comorbidities, presenting symptoms, or acuity I expect that the services needed warrant INPATIENT care.: Yes I certify that my determination is in accordance with my understanding of Medicare's requirements for reasonable and necessary INPATIENT services [42 CFR 412.3e].: Yes Medical Necessity: Risk of Complication if Not Cared For in Hospital
[2017-07-30] MEDS: DILTIAZEM HCL 120 MG CAP.SR.24H PO SCH (18:01)
--- NOTE | 2017-07-30 19:08 | EKG REPORT ---
SEVERITY:- ABNORMAL ECG - SINUS RHYTHM CONSIDER ANTEROSEPTAL INFARCT : Confirmed by: Ailin Lopez 30-Jul-2017 19:08:10
[2017-07-30] MEDS: LEVOFLOXACIN 750 MG/D5W RTU 750 MG/150 ML RTUPB IV SCH (21:39)
[2017-07-31] MEDS: IPRATROPIUM/ALBUTEROL 0.5-2.5 MG/3 ML AMPUL NEB SCH ×5 (00:08→19:54)
[2017-07-31 05:31] LABS: HEMATOCRIT 33.3 % (36.0-47.0); HEMOGLOBIN 11.2 g/dL (12.0-15.5); MEAN CORPUSCULAR HEMOGLOBIN 32.5 pg (27.0-33.4); MEAN CORPUSCULAR HGB CONC 33.8 g/dL (32.0-36.0); MEAN CORPUSCULAR VOLUME 96 fl (80-97); PLATELET COUNT 104 10^3/uL (150-450); RED BLOOD COUNT 3.46 10^6/uL (3.72-5.28); RED CELL DISTRIBUTION WIDTH 14.9 % (11.5-14.0)
[2017-07-31 05:53] LABS: ANION GAP 9 (5-19); BLOOD UREA NITROGEN 22 mg/dL (7-20); CALCIUM 9.8 mg/dL (8.4-10.2); CARBON DIOXIDE 31 mmol/L (22-30); CHLORIDE 105 mmol/L (98-107); GLUCOSE 140 mg/dL (75-110); PHOSPHORUS 2.9 mg/dL (2.5-4.5); POTASSIUM 3.4 mmol/L (3.6-5.0); SODIUM 144.6 mmol/L (137-145)
[2017-07-31] MEDS: LEVOTHYROXINE SODIUM 0.05 MG TABLET PO SCH (05:54)
[2017-07-31] MEDS: HEPARIN SOD (PORCINE) 5,000 UNIT/ML 1 ML SYRINGE SUBCUT SCH ×3 (05:55→21:43)
[2017-07-31] MEDS: LANSOPRAZOLE 30 MG TAB.RAP.DR PO SCH (05:55)
[2017-07-31] MEDS ORDERED: MAGNESIUM SULFATE/D5W 1 GM/100 ML RTUPB IV ONE (06:47)
[2017-07-31] MEDS ORDERED: POTASSIUM CHLORIDE 10 MEQ TABLET.SA PO ONE ×2 (07:45→12:00)
[2017-07-31] MEDS ORDERED: POTASSI CL 20 MEQ/50 ML RIDER 20 MEQ/50 ML RTUPB IV ONE (07:45)
[2017-07-31] MEDS ORDERED: ONDANSETRON HCL INJ/PF 4 MG/2 ML SDV IV PRN (09:30)
[2017-07-31] MEDS: ASPIRIN 81 MG TABLET, ENT COATED PO SCH (09:33)
[2017-07-31] MEDS: GABAPENTIN 300 MG CAPSULE PO SCH ×2 (09:33→21:41)
[2017-07-31] MEDS: BUDESONIDE/FORMOTEROL 160-4.5 MCG 60 PUFF/6 GM MDI IH SCH ×2 (09:34→21:42)
[2017-07-31] MEDS: ANASTROZOLE 1 MG TABLET PO SCH (09:34)
[2017-07-31] MEDS: DOFETILIDE 125 MCG CAPSULE PO SCH ×2 (09:34→21:42)
[2017-07-31] MEDS: TIOTROPIUM BROMIDE DPI 5 CAP/KIT (18 MCG/CAP) IH SCH (09:34)
[2017-07-31] MEDS: LATANOPROST 0.005% OPH SOLN 2.5 ML OU SCH (11:04)
[2017-07-31] MEDS: INSULIN LISPRO 100 UNIT/ML 3 ML VIAL SUBCUT PRN (13:14)
[2017-07-31 14:12] LABS: ANION GAP 7 (5-19); BLOOD UREA NITROGEN 19 mg/dL (7-20); CALCIUM 9.9 mg/dL (8.4-10.2); CARBON DIOXIDE 31 mmol/L (22-30); CHLORIDE 106 mmol/L (98-107); GLUCOSE 170 mg/dL (75-110); SODIUM 143.9 mmol/L (137-145)
--- NOTE | 2017-07-31 15:30 | PDOC PROGRESS REPORT ---
Subjective Progress Note for:: 07/31/17 Subjective:: Taya Ibarra is a 82 year old female who presented to the emergency department 07/27/2017 for fever and shortness of breath. She was admitted for UTI and AK I. She has a PMH of HTN, HLD, morbid obesity, COPD, diabetes, atrial fibrillation. The patient was seen this morning on rounds, she is resting comfortably in bed on supplemental oxygen via nasal cannula. The patient has no complaints, she denies feelings of shortness of breath or chest pain. Her lungs are clear to auscultation in all lung naranjo. The patient has been tolerating the use of BiPAP overnight. She states that she has been told by her primary care physician that she should be wearing CPAP at night, but the patient states she does not want to comply. It was explained to the patient that she was experiencing significant respiratory acidosis only 48hrs ago, and with her advancing COPD, she should strongly consider getting a CPAP machine for home. Reason For Visit: ACUTE KIDNEY INJURY, COMPLICATED UTI Physical Exam Vital Signs: Temp Pulse Resp BP Pulse Ox 101 F H 98 20 139/54 H 95 07/31/17 12:00 07/31/17 13:58 07/31/17 13:15 07/31/17 12:00 07/31/17 13:15 Intake & Output 07/30/17 07/31/17 08/01/17 06:59 06:59 06:59 Intake Total 7360 1404 Output Total 5350 3050 Balance 2009 -1645 Weight 147.5 kg 142.6 kg General appearance: PRESENT: no acute distress, morbidly obese Head exam: PRESENT: atraumatic Eye exam: PRESENT: conjunctiva pink, EOMI, PERRLA Mouth exam: PRESENT: moist Teeth exam: PRESENT: poor dentation Neck exam: PRESENT: full ROM Respiratory exam: PRESENT: clear to auscultation britt, symmetrical, unlabored Cardiovascular exam: PRESENT: irregular rhythm, +S1, +S2 Pulses: PRESENT: normal radial pulses, normal dorsalis pedis pul Vascular exam: PRESENT: normal capillary refill GI/Abdominal exam: PRESENT: normal bowel sounds, soft. ABSENT: tenderness Rectal exam: PRESENT: deferred Extremities exam: PRESENT: joint swelling, pedal edema. ABSENT: full ROM Musculoskeletal exam: PRESENT: ambulatory - with 2 person assist. ABSENT: full ROM Neurological exam: PRESENT: alert, awake, oriented to person, oriented to place , oriented to time, oriented to situation. ABSENT: normal gait Psychiatric exam: PRESENT: appropriate affect Skin exam: PRESENT: dry, intact, normal color Results Laboratory Results: 07/31/17 04:53 07/31/17 13:49 07/31/17 07/31/17 07/31/17 04:53 04:53 13:49 WBC 8.0 RBC 3.46 L Hgb 11.2 L Hct 33.3 L MCV 96 MCH 32.5 MCHC 33.8 RDW 14.9 H Plt Count 104 L Sodium 144.6 143.9 Potassium 3.4 L 4.0 Chloride 105 106 Carbon Dioxide 31 H 31 H Anion Gap 9 7 BUN 22 H 19 Creatinine 0.84 0.75 Est GFR ( Amer) > 60 > 60 Est GFR (Non-Af Amer) > 60 > 60 Glucose 140 H 170 H Calcium 9.8 9.9 Phosphorus 2.9 Magnesium 1.9 Impressions: Chest/Abdomen CTA 07/26/17 21:03 IMPRESSION: Scattered areas of subsegmental atelectasis are present in both lung bases. No dense consolidation or pleural effusion.No emboli visualized in the main pulmonary arteries or the segmental branches. Pneumobilia. Chest X-Ray 07/29/17 00:00 IMPRESSION: LOW LUNG VOLUMES. Basilar atelectasis. Status: Imported from PACS Assessment & Plan - Diagnosis (1) Sepsis Qualifiers: Qualified Code(s): A41.9 - Sepsis, unspecified organism Is this a current diagnosis for this admission?: Yes Plan: Sepsis due to UTI as evidenced by GNR and blood and urine cultures, low-grade temperature (100.8), tachycardia (135-140bpm), lactate > 2, and leukocytosis (13 ,000 cells/mm) Urine and blood culture positive for Proteus Mirabilis, sensitivities are resulted today. Susceptible to IV Levaquin. Continue current regimen. Currently on day 6 of IV Levaquin (patient has allergy to PCN) The patient endorses recent history of urinary incontinence. She states that she has been seen by a urologist. Poor perineal hygiene and her immobility are very likely the causes of her UTI. Ortiz catheter placed in the emergency department, will continue for accurate I& O in the setting of ARF (2) Complicated UTI (urinary tract infection) Is this a current diagnosis for this admission?: Yes Plan: Plan as above (3) ARF (acute renal failure) Qualifiers: Qualified Code(s): N17.9 - Acute kidney failure, unspecified Is this a current diagnosis for this admission?: Yes Plan: Etiology is likely prerenal secondary to sepsis and dehydration Baseline creatinine is< 1.0 Condition improving today, creatinine peaked at 1.86 now down to 0.75 Urine output has greatly improved, continue Ortiz catheter for accurate I&O Patient appears to be adequately fluid resuscitated. Discontinued IVF given recent episode of somnolence, volume overload, requiring lasix. (4) COPD (chronic obstructive pulmonary disease) Qualifiers: Qualified Code(s): J43.9 - Emphysema, unspecified Is this a current diagnosis for this admission?: Yes Plan: Patient endorses a history of COPD. Does not wear home O2. She is followed by Dr. Monae as an outpatient. Lungs are clear to auscultation in all lung naranjo Continue home dose inhalers, Spiriva and Symbicort. Continue scheduled nebulizer treatments. 07/29/2017 patient required BIPAP for respiratory acidosis (as well as diuresis for volume overload) Her ABG normalized overnight and the patient was much more awake by morning. The patient states that she has been instructed by her PMD to use CPAP at night , however she remains noncompliant. Continue CPAP at night and nasal cannula during the day as needed. (5) A-fib Qualifiers: Qualified Code(s): I48.2 - Chronic atrial fibrillation Is this a current diagnosis for this admission?: Yes Plan: The patient endorses a history of AFIB, currently taking Tikosyn (home medication) for rate/rhythm control. EKG shows sinus arrythmia, no AFIB or acute infarct/ischemia While inpatient, she did experience an episode of sustained AFIB on 07/28/2017, for which she was placed on digoxin by cardiology AFIB has since resolved, she is back in NSR. Digoxin has been discontinued, resumed Tikosyn (6) Morbid obesity Is this a current diagnosis for this admission?: Yes Plan: Morbid obesity is quantified as a BMI > 35. This patient's BMI is 44 Utilize discretion when making dietary choices for this patient. Appreciate underwriting sales representative recommendations. - Time Time Spent with patient: 15-24 minutes Medications reviewed and adjusted accordingly: Yes Anticipated discharge: Home with Homehealth, Acute Rehab - Inpatient Certification Based on my medical assessment, after consideration of the patient's comorbidities, presenting symptoms, or acuity I expect that the services needed warrant INPATIENT care.: Yes I certify that my determination is in accordance with my understanding of Medicare's requirements for reasonable and necessary INPATIENT services [42 CFR 412.3e].: Yes Medical Necessity: Need for IV Antibiotics, Risk of Complication if Not Cared For in Hospital
[2017-07-31] MEDS: DILTIAZEM HCL 120 MG CAP.SR.24H PO SCH (16:52)
[2017-07-31] MEDS: ALPRAZOLAM 0.5 MG TABLET PO PRN (16:52)
--- NOTE | 2017-07-31 19:46 | Progress Note ---
Provider Note Provider Note: ID Consult Note Asked to review patient's chart by Pharmacy. Pt not seen and examined. Reviewed VS, labs, imaging, provider reports. Pt is a 82 yo woman who has multiple medical problems including HTN, HLD, morbid obesity, DM, COPD and AF. She was admitted with fever, generalized weakness, SOB and abdominal pain on 07/26/17. She was incidentally found to have pneumobilia on CT scan of the chest ordered to r/o PE. No PE was found. LFTs were normal. She had DEWEY. The same organism was found from the patient's UCx and BCx Proteus mirabilis. No pneumonia has been evident on subsequent CXR either. She has been receiving treatment with IV Levaquin, to which her isolate is sensitive. Repeat BCx were still positive on in both sets for P. mirabilis and on 07/28 in one set for GNRs, which are pending identification. Last fever recorded was 101 F on 07/31. WBC count is stable. DEWEY has improved. Impression/Recommendations Sepsis secondary to Proteus mirabilis bacteremia from a urinary source - Agree with continuing current therapy with Levaquin. Although there are many other options based on the susceptibility profile, generally treatment of pyelonephritis with fluoroquinolones allows for shorter treatment courses than if beta-lactams or Bactrim is used. Dosing of Bactrim may be more difficult in obese patients. Additionally fluoroquinolones have good oral bioavailability and blood levels, which provides an attractive switch IV to PO option in the future. - Whether to pursue imaging to look for a complicating factor, such as a renal or perinephric abscess, would depend upon how the patient is doing clinically, such as if she continues to have fever without a clear alternative explanation. - Treatment duration for pyelonephritis with fluoroquinolones could be as short as 5-7 days with fluoroquinolones, and treatment duration for bacteremia with Gram negative rods has traditionally been in the range of 7-14 days, with shorter durations in several recent retrospective cohort studies found to be as effective as longer treatment durations. However, given the patient's slow improvement in terms of fever, it might be prudent to aim for a longer duration of treatment, such as 14 days in total of either IV or PO Levaquin. It goes without saying that the following are merely suggestions that must be taken into context and should not supersede the judgment of the treating provider, given the limitations of remote chart review. Vladislav Kidd MD [facility] Infectious Diseases pager [phone]
[2017-07-31] MEDS: LEVOFLOXACIN 750 MG/D5W RTU 750 MG/150 ML RTUPB IV SCH (21:41)
[2017-08-01] MEDS: IPRATROPIUM/ALBUTEROL 0.5-2.5 MG/3 ML AMPUL NEB SCH ×4 (02:11→19:50)
[2017-08-01 05:10] LABS: ABSOLUTE EOSINOPHILS # (AUTO) 0.2 10^3/uL (0.0-0.6); ABSOLUTE LYMPHOCYTES (AUTO) 1.2 10^3/uL (0.5-4.7); ABSOLUTE MONOCYTES (AUTO) 0.9 10^3/uL (0.1-1.4); ABSOLUTE NEUT (AUTO) 7.6 10^3/uL (1.7-8.2); BASOPHILS % (AUTO) 0.2 % (0-2); EOSINOPHILS % (AUTO) 1.7 % (0-6); HEMOGLOBIN 11.7 g/dL (12.0-15.5); LYMPHOCYTES % (AUTO) 12.5 % (13-45); MEAN CORPUSCULAR HEMOGLOBIN 32.7 pg (27.0-33.4); MEAN CORPUSCULAR HGB CONC 33.5 g/dL (32.0-36.0); MEAN CORPUSCULAR VOLUME 97 fl (80-97); MONOCYTES % (AUTO) 8.7 % (3-13); PLATELET COUNT 186 10^3/uL (150-450); RED CELL DISTRIBUTION WIDTH 15.1 % (11.5-14.0); SEGMENTED NEUTROPHILS % (AUTO) 76.9 % (42-78); TOTAL CELLS COUNTED % (AUTO) 100 %; WHITE BLOOD COUNT 9.9 10^3/uL (4.0-10.5)
[2017-08-01 05:31] LABS: ANION GAP 13 (5-19); BLOOD UREA NITROGEN 18 mg/dL (7-20); CALCIUM 9.9 mg/dL (8.4-10.2); CARBON DIOXIDE 29 mmol/L (22-30); CHLORIDE 108 mmol/L (98-107); GLUCOSE 128 mg/dL (75-110); PHOSPHORUS 3.3 mg/dL (2.5-4.5); POTASSIUM 4.2 mmol/L (3.6-5.0); SODIUM 149.7 mmol/L (137-145)
[2017-08-01] MEDS: HEPARIN SOD (PORCINE) 5,000 UNIT/ML 1 ML SYRINGE SUBCUT SCH ×3 (05:50→21:05)
[2017-08-01] MEDS: LANSOPRAZOLE 30 MG TAB.RAP.DR PO SCH (05:51)
[2017-08-01] MEDS: LEVOTHYROXINE SODIUM 0.05 MG TABLET PO SCH (05:52)
[2017-08-01] MEDS ORDERED: NYSTATIN CREAM 15 GM TP PRN ×2 (07:11→11:30)
--- NOTE | 2017-08-01 09:26 | RADIOLOGY REPORT (SQ) ---
EXAM DESCRIPTION: CHEST SINGLE VIEW COMPLETED DATE/TIME: 08/01/2017 9:18 am REASON FOR STUDY: Dyspnea, rhonchi COMPARISON: 07/29/2017 NUMBER OF VIEWS: One view. TECHNIQUE: Single frontal radiographic view of the chest acquired. LIMITATIONS: None. FINDINGS: LUNGS AND PLEURA: Low lung volumes. No opacities, masses or pneumothorax. No pleural eff usion. MEDIASTINUM AND HILAR STRUCTURES: No masses. No contour abnormality. HEART AND VASCULAR STRUCTURES: Normal size. No evidence for failure. BONES: No acute findings. HARDWARE: None in the chest. OTHER: No other significant finding. IMPRESSION: Low lung volumes. No acute findings. TECHNICAL DOCUMENTATION: JOB ID: [id number] [employer]- All Rights Reserved Reading location - IP/workstation name: [email or web address]
[2017-08-01] MEDS: GABAPENTIN 300 MG CAPSULE PO SCH ×2 (10:58→21:04)
[2017-08-01] MEDS: ASPIRIN 81 MG TABLET, ENT COATED PO SCH (10:58)
[2017-08-01] MEDS: ANASTROZOLE 1 MG TABLET PO SCH (10:58)
[2017-08-01] MEDS: TIOTROPIUM BROMIDE DPI 5 CAP/KIT (18 MCG/CAP) IH SCH (10:59)
[2017-08-01] MEDS: DOFETILIDE 125 MCG CAPSULE PO SCH ×2 (10:59→21:04)
[2017-08-01] MEDS: BUDESONIDE/FORMOTEROL 160-4.5 MCG 60 PUFF/6 GM MDI IH SCH ×2 (10:59→21:05)
[2017-08-01 11:14] LABS: ARTERIAL BLOOD BASE EXCESS 4.3 mmol/L; ARTERIAL BLOOD H2CO3 1.63 mmol/L (1.05-1.35); ARTERIAL BLOOD HCO3 30.8 mmol/L (20-26); ARTERIAL BLOOD O2 SATURATION 97.1 % (94-98); ARTERIAL BLOOD PCO2 54.3 mmHg (35-45); ARTERIAL BLOOD PH 7.37 (7.35-7.45); ARTERIAL BLOOD PO2 97.3 mmHg (80-100); ARTERIAL BLOOD TOTAL CO2 32.4 mmol/L (21-25)
[2017-08-01 11:15] LABS: ARTERIAL BLOOD FIO2 40%
--- NOTE | 2017-08-01 11:34 | RADIOLOGY REPORT (SQ) ---
EXAM DESCRIPTION: CT ABD/PELVIS WITH IV ONLY COMPLETED DATE/TIME: 08/01/2017 10:40 am REASON FOR STUDY: UTI/Sepsis, ? renal/preinephretic abscess COMPARISON: CTA of the chest dated 07/26/2017 TECHNIQUE: CT scan of the abdomen and pelvis performed using helical scanning technique with dynamic intravenous contrast injection. No oral contrast. Images reviewed with lung, soft tissue, and bone windows. Reconstructed coronal and sagittal MPR images reviewed. Delayed images for evaluation of the urinary system also acquired. All images stored on PACS. All CT scanners at this facility use dose modulation, iterative reconstruction, and/or weight based d osing when appropriate to reduce radiation dose to as low as reasonably achievable (ALARA). [facility]: Dose Right [facility]: CareDose [facility]: Dose Right [facility]: Teradose 4D [facility]: Apofore CONTRAST TYPE AND DOSE: contrast/concentration: Isovue 370.00 mg/ml; Total Contrast Delivered: 100.0 ml; Total Saline Delivered: 64.3 ml RENAL FUNCTION: Creatinine 0.73 RADIATION DOSE: CT Rad equipment meets quality standard of care and radiation dose reduction techniq ues were employed. CTDIvol: 25.6 - 30.8 mGy. DLP: 3200 mGy-cm.. LIMITATIONS: None. FINDINGS: LOWER CHEST: Tiny bilateral pleural effusions are identified with some associated airspace consolidation most consistent with atelectatic changes. These findings appear more pronounced as co mpared to the previous study. LIVER: Normal size. No masses. Air is again identified within intrahepatic bile ducts in the left lo be of the liver presumably related to the patient being in post cholecystectomy. SPLEEN: Normal size. No focal lesions. PANCREAS: No masses. No significant calcifications. No adjacent inflammation or peripancreatic fluid collections. Pancreatic duct not dilated. GALLBLADDER: Gallbladder is not identified in a patient is presumably status post cholecystectomy. ADRENAL GLANDS: No significant masses or asymmetry. RIGHT KIDNEY AND URETER: No solid masses. No CT evidence for a renal or pararenal abscess collection is identified. Large nonobstructing renal calculus is identified in the right renal pelvis measurin g 2.2 x 0.9 cm in diameters. A 2nd smaller nonobstructing right renal calculus is identified measuri ng 8.6 mm in greatest diameter. No hydronephrosis or hydroureter. There is perirenal soft tissue st randing which is a nonspecific finding. LEFT KIDNEY AND URETER: No solid masses. No CT evidence for a renal appearing renal abscess collecti on is identified. No significant calcifications. No hydronephrosis or hydroureter. There is perir enal soft tissue stranding which is a nonspecific finding. AORTA AND VESSELS: No aneurysm. No dissection. Renal arteries, SMA, celiac without stenosis. RETROPERITONEUM: No retroperitoneal adenopathy, hemorrhage or masses. BOWEL AND PERITONEAL CAVITY: No masses or inflammatory changes. No free fluid or peritoneal masses. APPENDIX: Not identified PELVIS: A 10.6 mm in diameter low density mass is identified in the uterus with CT numbers consistent with a fat containing mass. 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 Ultrasound may be o f value for further evaluation if clinically warranted. No free fluid. The bladder is decompressed with a Ortiz catheter being identified within the bladder. ABDOMINAL WALL: Surgical clips are identified related to a hernia repair. There is an associated 2.2 cm in diameter soft tissue density in the subcutaneous fat presumably representing postsurgical bernabe ges however other etiologies cannot be excluded. BONES: Degenerative changes are identified in the lumbar spine OTHER: No other significant finding. IMPRESSION: No evidence for a renal or perirenal abscess collection is identified. Right renal calc brent as noted above. Other findings as noted above. TECHNICAL DOCUMENTATION: JOB ID: [id number] Quality ID # [id number]: Final reports with documentation of one or more dose reduction techniques (e.g., Au tomated exposure control, adjustment of the mA and/or kV according to patient size, use of iterative reconstruction technique) 2010 [employer]- All Rights Reserved Reading location - IP/workstation name: [email or web address]
--- NOTE | 2017-08-01 11:46 | PDOC PROGRESS REPORT ---
Subjective Progress Note for:: 08/01/17 Subjective:: The patient is an 82-year-old female with a past medical history of hypertension , hyperlipidemia, morbid obesity, COPD, diabetes, and atrial fibrillation who was admitted on 07/27/17 for sepsis secondary to urinary tract infection with acute kidney injury. The patient is seen on morning rounds. She is found sleeping in bed while on supplemental oxygen via nasal cannula. She is somnolent and arouses briefly with gentle shake and states "good morning," but quickly falls back asleep and does not respond to further questions or attempts to wake her. Per nursing, the patient was awake earlier this morning and had recently received a breathing treatment. No other concerns or overnight events reported. The patient's daughter is at bedside. She reports that her mother seems to have declined slightly over the past 2 days. She states that the patient seems lethargic compared to her normal and is concerned that she may be worsening. We discussed the plan for further lab work up and imaging today. Reason For Visit: ACUTE KIDNEY INJURY, COMPLICATED UTI Physical Exam Vital Signs: Temp Pulse Resp BP Pulse Ox 97.7 F 87 19 131/54 H 94 08/01/17 07:52 08/01/17 07:52 08/01/17 07:52 08/01/17 07:52 08/01/17 07:52 Intake & Output 07/31/17 08/01/17 08/02/17 06:59 06:59 06:59 Intake Total 1404 1930 Output Total 3050 4000 Balance -1646 -2070 Weight 142.6 kg 143 kg General appearance: PRESENT: no acute distress, disheveled, morbidly obese, well -developed Head exam: PRESENT: atraumatic, normocephalic Eye exam: PRESENT: conjunctiva pink, EOMI, PERRLA. ABSENT: scleral icterus Ear exam: PRESENT: normal external ear exam Mouth exam: PRESENT: moist, tongue midline Neck exam: ABSENT: carotid bruit, JVD, lymphadenopathy, thyromegaly Respiratory exam: PRESENT: crackles, decreased breath sounds - Bibasilar; secondary to poor effort and body habitus, tachypnea, wheezes. ABSENT: rales, rhonchi Cardiovascular exam: PRESENT: RRR. ABSENT: diastolic murmur, rubs, systolic murmur Pulses: PRESENT: normal dorsalis pedis pul Vascular exam: PRESENT: normal capillary refill GI/Abdominal exam: PRESENT: normal bowel sounds, soft. ABSENT: distended, guarding, mass, organolmegaly, rebound, tenderness Rectal exam: PRESENT: deferred Extremities exam: PRESENT: full ROM. ABSENT: calf tenderness, clubbing, pedal edema Neurological exam: PRESENT: CN II-XII grossly intact, other - Somnulent; easily arouses, however, does not answer questions or follow commands. ABSENT: alert, awake, motor sensory deficit Psychiatric exam: ABSENT: homicidal ideation, suicidal ideation Skin exam: PRESENT: dry, intact, warm. ABSENT: cyanosis, rash Results Laboratory Results: 08/01/17 04:06 08/01/17 04:06 07/31/17 08/01/17 08/01/17 13:49 04:06 04:06 WBC 9.9 RBC 3.60 L Hgb 11.7 L Hct 35.0 L MCV 97 MCH 32.7 MCHC 33.5 RDW 15.1 H Plt Count 186 Seg Neutrophils % 76.9 Lymphocytes % 12.5 L Monocytes % 8.7 Eosinophils % 1.7 Basophils % 0.2 Absolute Neutrophils 7.6 Absolute Lymphocytes 1.2 Absolute Monocytes 0.9 Absolute Eosinophils 0.2 Absolute Basophils 0.0 Sodium 143.9 149.7 H Potassium 4.0 4.2 Chloride 106 108 H Carbon Dioxide 31 H 29 Anion Gap 7 13 BUN 19 18 Creatinine 0.75 0.73 Est GFR ( Amer) > 60 > 60 Est GFR (Non-Af Amer) > 60 > 60 Glucose 170 H 128 H Calcium 9.9 9.9 Phosphorus 3.3 Magnesium 2.0 07/28/17 06:45 Blood Blood Culture - Final Proteus Mirabilis Impressions: Chest/Abdomen CTA 07/26/17 21:03 IMPRESSION: Scattered areas of subsegmental atelectasis are present in both lung bases. No dense consolidation or pleural effusion.No emboli visualized in the main pulmonary arteries or the segmental branches. Pneumobilia. Chest X-Ray 07/29/17 00:00 IMPRESSION: LOW LUNG VOLUMES. Basilar atelectasis. Assessment & Plan - Diagnosis (1) Sepsis Qualifiers: Sepsis type: sepsis due to unspecified organism Qualified Code(s): A41.9 - Sepsis, unspecified organism Is this a current diagnosis for this admission?: Yes Plan: Improved; leukocytosis, elevated lactate, and tachycardia have resolved. Pt is normotensive, however, does continue to be febrile. Sepsis due to gram-negative rods in blood and urine cultures, present on admission, evidenced by fever (101), tachycardia (135-140 bpm), lactate 2.3, and leukocytosis (13.3). Blood and urine cultures positive for Proteus mirabilis with similar resistance patterns; resistant to nitrofurantoin and tetracycline. The patient was admitted to the medical floor on continuous cardiac telemetry. She is currently on day 7 of IV Levaquin (patient has an allergy to penicillin). Infectious disease was consulted and recommend 14 days of antibiotic therapy. Ortiz catheter has been placed for strict I&Os and to maintain perineal hygiene. The patient was adequately fluid resuscitated; IV fluids have since been discontinued secondary to development of fluid volume overload. We will continue to monitor closely for need for additional IV fluids. (2) Complicated UTI (urinary tract infection) Is this a current diagnosis for this admission?: Yes Plan: The patient endorses a recent history of urinary incontinence and frequent UTIs. She is followed by Dr. Gonzalez (urologist). She is noted to have poor perineal hygiene; currently providing nystatin for giovani to skinfolds. Ortiz catheter has been placed for strict I&O's given the patient's acute renal failure and to maintain strict hygiene. Blood and urine cultures as above. As the patient continues to run a high grade temperature open (101 overnight) despite 7 days of appropriate antibiotic therapy, will obtain an abdominal and pelvic CT today to evaluate for stones, renal abscess, perinephritic abscesses, etc. We will continue IV Levaquin; day 7 of 14. (3) Acute metabolic encephalopathy Is this a current diagnosis for this admission?: Yes Plan: The patient is noted to be obtunded; she arouses briefly with name call and gentle shake but is unable to maintain alertness or answer questions. Per family members, the patient appears to be declining over the past couple of days. This is likely multifactorial secondary to respiratory acidosis with hypercapnia and infectious process. ABG reveals compensated respiratory acidosis with hypercapnia that is worsened from previously. Strongly encourage BiPAP use nightly and at all times that the patient is sleeping. Chest x-ray shows low lung volumes but no acute cardiopulmonary process. Will provide for patient safety; fall and aspiration precautions. Antibiotics as above. (4) A-fib Qualifiers: Atrial fibrillation type: chronic Qualified Code(s): I48.2 - Chronic atrial fibrillation Is this a current diagnosis for this admission?: Yes Plan: The patient endorses a history of chronic atrial fibrillation. The patient did experience an episode of sustained A. fib on 07/28/17 for which she was briefly placed on digoxin by cardiology which has since been discontinued. Her home dosed Tikosyn was resumed. Continue daily aspirin; the patient does not appear to be chronically anticoagulated. (5) COPD (chronic obstructive pulmonary disease) Qualifiers: Emphysema type: unspecified Is this a current diagnosis for this admission?: Yes Plan: The patient endorses a history of COPD; she is not home O2 dependent. 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 Monae. Repeat ABG is pending. CXR shows low lung volumes but otherwise no acute cardiopulmonary processes. Continue supplemental oxygen as needed to maintain oxygen saturations greater than 88% We will continue her home dose inhalers, Spiriva and Symbicort. Scheduled and as needed nebulizer treatments are available. The patient has been encouraged to use BiPAP for respiratory acidosis (as well as to assist with volume overload); the patient has remained resistant. She states that she has been told that she should use CPAP as an outpatient but is noncompliant with that as well. The patient was noted to have rhonchi and wheezing this morning; DuoNeb was provided. Will monitor closely for need for steroid therapy. (6) Diabetes Qualifiers: Diabetes mellitus type: type 2 Diabetes mellitus mcc insulin use: without mcc use Is this a current diagnosis for this admission?: Yes Plan: Metformin will be held while inpatient. The patient is placed on a consistent carb diet. Accu-Cheks before meals and at bedtime with Humalog for sliding scale coverage. We will ask the registered dietitian to meet with the patient and family members ; appreciate their assistance and recommendations. (7) Obesity hypoventilation syndrome Is this a current diagnosis for this admission?: Yes Plan: BiPAP qHS and as needed. Strongly encourage use. (8) Morbid obesity Is this a current diagnosis for this admission?: Yes Plan: The patient's morbid obesity is a complicating factor; it likely contributed to her urinary tract infection by reducing her mobility and perineal hygiene. Further, the patient has developed respiratory acidosis and is noted to have a diagnosis of obesity hypoventilation syndrome in her historical medical records. Her obesity will certainly prolong her recovery. Dietary discretion is advised. Appreciate the registered dietitian's recommendations. (9) ARF (acute renal failure) Qualifiers: Acute renal failure type: unspecified Qualified Code(s): N17.9 - Acute kidney failure, unspecified Is this a current diagnosis for this admission?: Yes Plan: Resolved; prerenal in nature secondary to sepsis and dehydration. Continue Ortiz catheter for strict I&O's. IV fluids are being held secondary to somnolence and evidence of fluid overload requiring Lasix. Avoid nephrotoxic medications. We will monitor with daily chemistries. - Time Time Spent with patient: 35 or more minutes Medications reviewed and adjusted accordingly: Yes - Inpatient Certification Based on my medical assessment, after consideration of the patient's comorbidities, presenting symptoms, or acuity I expect that the services needed warrant INPATIENT care.: Yes I certify that my determination is in accordance with my understanding of Medicare's requirements for reasonable and necessary INPATIENT services [42 CFR 412.3e].: Yes Medical Necessity: Need Close Monitoring Due to Risk of Patient Decompensation, Need For Continuous Telemetry Monitoring, Need for IV Antibiotics
--- NOTE | 2017-08-01 14:43 | PDOC CONSULTATION ---
Consultation Consult Date: 08/01/17 Attending physician:: EMILIA MARQUEZ History of Present Illness Admission Date/PCP: 07/27/17 01:07 DARRIN MELENDEZ MD History of Present Illness: LUIS A STEPHEN is a 82 year old female Past Medical History Cardiac Medical History: Reports: Atrial Fibrillation, Hyperlipidema, Hypertension Endocrine Medical History: Reports: Diabetes Mellitus Type 2 Psychiatric Medical History: Reports: Depression Social History Smoking Status: Never Smoker Frequency of Alcohol Use: None Hx Recreational Drug Use: No Drugs: None Hx Prescription Drug Abuse: No - Advance Directive Resuscitation Status: Full Code Family History Family History: Reviewed & Not Pertinent Parental Family History Reviewed: No Children Family History Reviewed: No Sibling(s) Family History Reviewed.: No Medication/Allergy Home Medications: Albuterol Sulfate [Proair HFA Inhalation Aerosol 8.5 gm MDI] 2 puff IH Q4HP PRN 07/27/17 Alprazolam [Xanax] 2 mg PO Q8HP PRN 07/27/17 Anastrozole [Arimidex] 1 mg PO DAILY 07/27/17 Aspirin [Ecotrin 81 mg EC Tablet] 81 mg PO DAILY 07/27/17 Budesonide/Formoterol Fumarate [Symbicort 160-4.5 Mcg Inhaler] 2 puff IH Q12 06/11 Chlorpheniramine Maleate [Allergy Relief 4 mg Tablet] 4 mg PO Q6HP PRN 07/27/17 Dofetilide [Tikosyn] 250 mcg PO Q12 07/27/17 Duloxetine HCl [Cymbalta] 60 mg PO Q12 07/27/17 Ergocalciferol (Vitamin D2) [Drisdol 50,000 unit (1.25MG) Capsule] 50,000 mg PO LIANG@1000 07/27/17 Gabapentin [Neurontin 300 mg Capsule] 300 mg PO Q12 07/27/17 Ibuprofen [Motrin 800 mg Tablet] 800 mg PO Q12HP PRN 07/27/17 Latanoprost [Xalatan 0.005% Oph Soln 2.5 ml] 1 drop OU DAILY 07/27/17 Levothyroxine Sodium [Synthroid] 125 mcg PO ACBRKFST 07/27/17 Metformin HCl [Metformin HCl ER] 500 mg PO WSUPPER 07/27/17 Orphenadrine Citrate 100 mg PO Q12 07/27/17 Pantoprazole Sodium [Protonix] 40 mg PO DAILY 07/27/17 Tiotropium [place] [Spiriva Handihaler 5 Cap/Kit (18 Mcg/Cap)] 1 puff IH DAILY 07/27/17 Tolterodine Tartrate [Tolterodine Tartrate ER] 4 mg PO DAILY 07/27/17 Allergies/Adverse Reactions: Penicillins Allergy (Unknown, Verified 07/28/17 13:35) Generalized rash Sulfa (Sulfonamide Antibiotics) Allergy (Unknown, Verified 07/28/17 13:35) Generalized rash Physical Exam Vital Signs: Temp Pulse Resp BP Pulse Ox 97.4 F 69 24 H 139/67 H 96 08/01/17 11:34 08/01/17 13:04 08/01/17 13:04 08/01/17 11:34 08/01/17 13:04 Intake & Output 07/31/17 08/01/17 08/02/17 06:59 06:59 06:59 Intake Total 1404 1930 Output Total 3050 4000 Balance -1646 -2070 Weight 142.6 kg 143 kg Results Laboratory Results: 08/01/17 04:06 08/01/17 04:06 08/01/17 08/01/17 08/01/17 04:06 04:06 10:50 WBC 9.9 RBC 3.60 L Hgb 11.7 L Hct 35.0 L MCV 97 MCH 32.7 MCHC 33.5 RDW 15.1 H Plt Count 186 Seg Neutrophils % 76.9 Lymphocytes % 12.5 L Monocytes % 8.7 Eosinophils % 1.7 Basophils % 0.2 Absolute Neutrophils 7.6 Absolute Lymphocytes 1.2 Absolute Monocytes 0.9 Absolute Eosinophils 0.2 Absolute Basophils 0.0 Carbonic Acid 1.63 H HCO3/H2CO3 Ratio 18:1 ABG pH 7.37 ABG pCO2 54.3 H ABG pO2 97.3 ABG HCO3 30.8 H ABG O2 Saturation 97.1 ABG Base Excess 4.3 FiO2 40% Sodium 149.7 H Potassium 4.2 Chloride 108 H Carbon Dioxide 29 Anion Gap 13 BUN 18 Creatinine 0.73 Est GFR ( Amer) > 60 Est GFR (Non-Af Amer) > 60 Glucose 128 H Calcium 9.9 Phosphorus 3.3 Magnesium 2.0 07/28/17 06:45 Blood Blood Culture - Final Proteus Mirabilis 08/01/17 04:06 NT-Pro-B Natriuret Pep 455 H Impressions: Chest/Abdomen CTA 07/26/17 21:03 IMPRESSION: Scattered areas of subsegmental atelectasis are present in both lung bases. No dense consolidation or pleural effusion.No emboli visualized in the main pulmonary arteries or the segmental branches. Pneumobilia. Abdomen/Pelvis CT 08/01/17 00:00 IMPRESSION: No evidence for a renal or perirenal abscess collection is identified. Right renal calculi as noted above. Other findings as noted above. Chest X-Ray 08/01/17 00:00 IMPRESSION: Low lung volumes. No acute findings. Assessment & Plan - Diagnosis (2) Kidney stone on right side Is this a current diagnosis for this admission?: No - Plan Summary Plan Summary: spoke with Dr flores and discussed her case, Cr and WBC are normal, she is not in the best condition for surgery or GA, she is asymptomatic from that stone. will keep close observation if Cr or WBC changes .
[2017-08-01] MEDS: DILTIAZEM HCL 120 MG CAP.SR.24H PO SCH (17:08)
[2017-08-01] MEDS: LATANOPROST 0.005% OPH SOLN 2.5 ML OU SCH (17:14)
[2017-08-01] MEDS ORDERED: CEFEPIME 1 GM/D5W RTU 1 GM/50 ML RTUPB IV SCH (22:00)
[2017-08-02] MEDS: IPRATROPIUM/ALBUTEROL 0.5-2.5 MG/3 ML AMPUL NEB SCH ×4 (02:08→19:46)
[2017-08-02] MEDS: HEPARIN SOD (PORCINE) 5,000 UNIT/ML 1 ML SYRINGE SUBCUT SCH ×3 (05:05→21:11)
[2017-08-02] MEDS: LANSOPRAZOLE 30 MG TAB.RAP.DR PO SCH (05:07)
[2017-08-02] MEDS: LEVOTHYROXINE SODIUM 0.05 MG TABLET PO SCH (05:07)
[2017-08-02 06:52] LABS: ABSOLUTE BASOPHILS # (AUTO) 0.1 10^3/uL (0.0-0.2); ABSOLUTE EOSINOPHILS # (AUTO) 0.2 10^3/uL (0.0-0.6); ABSOLUTE LYMPHOCYTES (AUTO) 1.3 10^3/uL (0.5-4.7); ABSOLUTE MONOCYTES (AUTO) 0.5 10^3/uL (0.1-1.4); ABSOLUTE NEUT (AUTO) 8.8 10^3/uL (1.7-8.2); BASOPHILS % (AUTO) 0.8 % (0-2); EOSINOPHILS % (AUTO) 1.8 % (0-6); HEMATOCRIT 36.6 % (36.0-47.0); HEMOGLOBIN 12.3 g/dL (12.0-15.5); LYMPHOCYTES % (AUTO) 12.3 % (13-45); MEAN CORPUSCULAR HEMOGLOBIN 32.9 pg (27.0-33.4); MEAN CORPUSCULAR HGB CONC 33.7 g/dL (32.0-36.0); MEAN CORPUSCULAR VOLUME 98 fl (80-97); MONOCYTES % (AUTO) 4.5 % (3-13); PLATELET COUNT 246 10^3/uL (150-450); RED BLOOD COUNT 3.74 10^6/uL (3.72-5.28); RED CELL DISTRIBUTION WIDTH 15.4 % (11.5-14.0); SEGMENTED NEUTROPHILS % (AUTO) 80.6 % (42-78); TOTAL CELLS COUNTED % (AUTO) 100 %; WHITE BLOOD COUNT 10.9 10^3/uL (4.0-10.5)
[2017-08-02] MEDS: ASPIRIN 81 MG TABLET, ENT COATED PO SCH (09:25)
[2017-08-02] MEDS: LATANOPROST 0.005% OPH SOLN 2.5 ML OU SCH (09:26)
[2017-08-02] MEDS: ANASTROZOLE 1 MG TABLET PO SCH (09:27)
[2017-08-02] MEDS: GABAPENTIN 300 MG CAPSULE PO SCH ×2 (09:30→21:11)
[2017-08-02 09:32] LABS: ALANINE AMINOTRANSFERASE 27 U/L (9-52); ALBUMIN 2.6 g/dL (3.5-5.0); ALKALINE PHOSPHATASE 69 U/L (38-126); ANION GAP 10 (5-19); ASPARTATE AMINO TRANSFERASE 24 U/L (14-36); BILIRUBIN,DIRECT 0.3 mg/dL (0.0-0.4); BILIRUBIN,TOTAL 0.3 mg/dL (0.2-1.3); BLOOD UREA NITROGEN 16 mg/dL (7-20); CALCIUM 9.8 mg/dL (8.4-10.2); CARBON DIOXIDE 31 mmol/L (22-30); CHLORIDE 103 mmol/L (98-107); GLUCOSE 180 mg/dL (75-110); PHOSPHORUS 3.3 mg/dL (2.5-4.5); POTASSIUM 3.8 mmol/L (3.6-5.0); SODIUM 144.1 mmol/L (137-145)
[2017-08-02] MEDS: DOFETILIDE 125 MCG CAPSULE PO SCH ×2 (09:36→21:12)
[2017-08-02] MEDS: BUDESONIDE/FORMOTEROL 160-4.5 MCG 60 PUFF/6 GM MDI IH SCH ×2 (09:36→21:11)
[2017-08-02] MEDS: TIOTROPIUM BROMIDE DPI 5 CAP/KIT (18 MCG/CAP) IH SCH (10:18)
--- NOTE | 2017-08-02 10:20 | PDOC CONSULTATION ---
Consultation Consult Date: 08/02/17 Attending physician:: SUSANNA WEBER Consult reason:: Chronic respiratory failure/sepsis History of Present Illness Admission Date/PCP: 07/27/17 01:07 DARRIN MELENDEZ MD History of Present Illness: LUIS A STEPHEN is a 82 year old female,with multiple medical problems well- known to [facility] has a history of COPD with CO2 retention morbid obesity hypertension hyperlipidemia diabetes presented to the emergency room with what appeared to be sepsis from UTI she has been treated for 7 days with Levaquin and has been off of Levaquin for the last 48 hours she states she calls with no signs coming out poor advances blood stuffiness, but is clear she denies hemoptysis nausea vomiting or chills she does admit to fever she is not aware of the temperature (per chart her temperature for the last 48 hours with a T-max of 99.8) she denies angina-like chest pain for edema nausea vomiting diarrhea some postnasal drip but no sore throat and she is chronically short of breath. Past Medical History Cardiac Medical History: Reports: Atrial Fibrillation, Hyperlipidema, Hypertension Endocrine Medical History: Reports: Diabetes Mellitus Type 2 Psychiatric Medical History: Reports: Depression Hematology: Denies: Sickle Cell Disease, Bleeding Tendencies Past Surgical History Past Surgical History: Reports: Section Social History Information Source: Patient, [facility] Records Smoking Status: Former Smoker Passive smoke exposure as: Both Frequency of Alcohol Use: None Hx Recreational Drug Use: No Drugs: None Hx Prescription Drug Abuse: No Do you have pets?: No Have you had any respiratory illnesses as a child?: No Have you been exposed to any sick contacts recently?: No Have you travelled outside of [place] in the past 12 months?: No - Advance Directive Resuscitation Status: Full Code Family History Parental Family History Reviewed: Yes Children Family History Reviewed: Yes Sibling(s) Family History Reviewed.: Yes Medication/Allergy Home Medications: Albuterol Sulfate [Proair HFA Inhalation Aerosol 8.5 gm MDI] 2 puff IH Q4HP PRN 07/27/17 Alprazolam [Xanax] 2 mg PO Q8HP PRN 07/27/17 Anastrozole [Arimidex] 1 mg PO DAILY 07/27/17 Aspirin [Ecotrin 81 mg EC Tablet] 81 mg PO DAILY 07/27/17 Budesonide/Formoterol Fumarate [Symbicort 160-4.5 Mcg Inhaler] 2 puff IH Q12 06/11 Chlorpheniramine Maleate [Allergy Relief 4 mg Tablet] 4 mg PO Q6HP PRN 07/27/17 Dofetilide [Tikosyn] 250 mcg PO Q12 07/27/17 Duloxetine HCl [Cymbalta] 60 mg PO Q12 07/27/17 Ergocalciferol (Vitamin D2) [Drisdol 50,000 unit (1.25MG) Capsule] 50,000 mg PO LIANG@1000 07/27/17 Gabapentin [Neurontin 300 mg Capsule] 300 mg PO Q12 07/27/17 Ibuprofen [Motrin 800 mg Tablet] 800 mg PO Q12HP PRN 07/27/17 Latanoprost [Xalatan 0.005% Oph Soln 2.5 ml] 1 drop OU DAILY 07/27/17 Levothyroxine Sodium [Synthroid] 125 mcg PO ACBRKFST 07/27/17 Metformin HCl [Metformin HCl ER] 500 mg PO WSUPPER 07/27/17 Orphenadrine Citrate 100 mg PO Q12 07/27/17 Pantoprazole Sodium [Protonix] 40 mg PO DAILY 07/27/17 Tiotropium [place] [Spiriva Handihaler 5 Cap/Kit (18 Mcg/Cap)] 1 puff IH DAILY 07/27/17 Tolterodine Tartrate [Tolterodine Tartrate ER] 4 mg PO DAILY 07/27/17 Allergies/Adverse Reactions: Penicillins Allergy (Unknown, Verified 07/28/17 13:35) Generalized rash Sulfa (Sulfonamide Antibiotics) Allergy (Unknown, Verified 07/28/17 13:35) Generalized rash Review of Systems Constitutional: ABSENT: headache(s), night sweats Eyes: ABSENT: visual disturbances Nose, Mouth, and Throat: ABSENT: mouth pain, sore throat Cardiovascular: PRESENT: palpitations. ABSENT: chest pain, orthropnea Respiratory: PRESENT: dyspnea. ABSENT: hemoptysis Gastrointestinal: ABSENT: abdominal pain, bloating, coffee ground emesis, diarrhea, dysphagia, heartburn, hematemesis, hematochezia, melena Genitourinary: ABSENT: dysuria, hematuria Integumentary: ABSENT: pruritus, rash Neurological: PRESENT: confusion. ABSENT: abnormal speech, focal weakness, lack of coordination, memory loss Psychiatric: PRESENT: depression. ABSENT: homidical ideation, suicidal ideation Endocrine: ABSENT: cold intolerance, heat intolerance Hematologic/Lymphatic: ABSENT: easy bruising Allergic/Immunologic: ABSENT: seasonal rhinorrhea Physical Exam Vital Signs: Temp Pulse Resp BP Pulse Ox 99.7 F 91 22 H 131/42 H 94 08/02/17 07:26 08/02/17 07:26 08/02/17 07:26 08/02/17 07:26 08/02/17 07:26 Intake & Output 08/01/17 08/02/17 08/03/17 06:59 06:59 06:59 Intake Total 1930 565 Output Total 4000 1200 Balance -2069 Weight 143 kg 143.3 kg General appearance: PRESENT: no acute distress, cooperative, disheveled, morbidly obese Head exam: PRESENT: atraumatic, normocephalic Eye exam: PRESENT: conjunctiva pale, EOMI. ABSENT: nystagmus, periorbital swelling, scleral icterus Mouth exam: PRESENT: moist, tongue midline Neck exam: ABSENT: carotid bruit, JVD, lymphadenopathy, thyromegaly, tracheal deviation, tracheostomy Pulses: PRESENT: normal radial pulses GI/Abdominal exam: PRESENT: diminished bowel sounds, soft Extremities exam: ABSENT: clubbing, joint swelling, pedal edema Musculoskeletal exam: ABSENT: deformity, dislocation Neurological exam: PRESENT: awake, oriented to person, oriented to place Psychiatric exam: PRESENT: anxious, normal mood Focused psych exam: PRESENT: pressured speech Skin exam: PRESENT: dry, warm Results Laboratory Results: 08/02/17 06:13 08/02/17 06:13 08/01/17 08/02/17 08/02/17 10:50 06:13 06:13 WBC 10.9 H RBC 3.74 Hgb 12.3 Hct 36.6 MCV 98 H MCH 32.9 MCHC 33.7 RDW 15.4 H Plt Count 246 Seg Neutrophils % 80.6 H Lymphocytes % 12.3 L Monocytes % 4.5 Eosinophils % 1.8 Basophils % 0.8 Absolute Neutrophils 8.8 H Absolute Lymphocytes 1.3 Absolute Monocytes 0.5 Absolute Eosinophils 0.2 Absolute Basophils 0.1 Carbonic Acid 1.63 H HCO3/H2CO3 Ratio 18:1 ABG pH 7.37 ABG pCO2 54.3 H ABG pO2 97.3 ABG HCO3 30.8 H ABG O2 Saturation 97.1 ABG Base Excess 4.3 FiO2 40% Sodium Cancelled Potassium Cancelled Chloride Cancelled Carbon Dioxide Cancelled Anion Gap Cancelled BUN Cancelled Creatinine Cancelled Est GFR ( Amer) Cancelled Est GFR (Non-Af Amer) Cancelled Glucose Cancelled Calcium Cancelled Phosphorus Cancelled Magnesium Cancelled Total Bilirubin Cancelled AST Cancelled ALT Cancelled Alkaline Phosphatase Cancelled Total Protein Cancelled Albumin Cancelled 07/28/17 06:12 Blood Blood Culture - Final NO GROWTH IN 5 DAYS 07/28/17 06:45 Blood Blood Culture - Final Proteus Mirabilis 08/01/17 08/02/17 04:06 06:13 NT-Pro-B Natriuret Pep 455 H 276 Impressions: Chest/Abdomen CTA 07/26/17 21:03 IMPRESSION: Scattered areas of subsegmental atelectasis are present in both lung bases. No dense consolidation or pleural effusion.No emboli visualized in the main pulmonary arteries or the segmental branches. Pneumobilia. Abdomen/Pelvis CT 08/01/17 00:00 IMPRESSION: No evidence for a renal or perirenal abscess collection is identified. Right renal calculi as noted above. Other findings as noted above. Chest X-Ray 08/01/17 00:00 IMPRESSION: Low lung volumes. No acute findings. Assessment & Plan - Diagnosis (1) Complicated UTI (urinary tract infection) Is this a current diagnosis for this admission?: Yes Plan: 07/28/17 06:45 Blood Culture - Final Blood Proteus Mirabilis 07/28/17 06:12 Blood Culture - Final Blood NO GROWTH IN 5 DAYS 07/27/17 04:05 Blood Culture - Final Blood Proteus Mirabilis 07/27/17 03:55 Blood Culture - Final Blood Proteus Mirabilis 07/26/17 22:37 Urine Culture - Final Catheterized Urine Proteus Mirabilis 07/26/17 21:00 Blood Culture - Final Blood Proteus Mirabilis 07/26/17 19:45 Blood Culture - Final Blood Proteus Mirabilis (2) Morbid obesity Is this a current diagnosis for this admission?: Yes (3) Sepsis Qualifiers: Qualified Code(s): A41.9 - Sepsis, unspecified organism Is this a current diagnosis for this admission?: Yes Plan: Proteus Mirabilis improved (4) UTI (urinary tract infection) Qualifiers: Urinary tract infection type: site unspecified Hematuria presence: without hematuria Qualified Code(s): N39.0 - Urinary tract infection, site not specified Is this a current diagnosis for this admission?: Yes Plan: suggest repeat ua (5) Obesity hypoventilation syndrome Is this a current diagnosis for this admission?: Yes Plan: attempt to qualify home bipap
[2017-08-02 10:49] LABS: ARTERIAL BLOOD BASE EXCESS 5.5 mmol/L; ARTERIAL BLOOD FIO2 3L; ARTERIAL BLOOD H2CO3 1.38 mmol/L (1.05-1.35); ARTERIAL BLOOD HCO3 30.4 mmol/L (20-26); ARTERIAL BLOOD O2 SATURATION 95.4 % (94-98); ARTERIAL BLOOD PCO2 45.7 mmHg (35-45); ARTERIAL BLOOD PH 7.44 (7.35-7.45); ARTERIAL BLOOD PO2 74.7 mmHg (80-100); ARTERIAL BLOOD TOTAL CO2 31.8 mmol/L (21-25)
--- NOTE | 2017-08-02 14:27 | PDOC PROGRESS REPORT ---
Subjective Progress Note for:: 08/02/17 Subjective:: The patient is an 82-year-old female with a past medical history of hypertension , hyperlipidemia, morbid obesity, COPD, diabetes, and atrial fibrillation who was admitted on 07/27/17 for sepsis secondary to urinary tract infection with acute kidney injury. The patient is seen on morning rounds. She is found sitting upright in the recliner on supplemental oxygen at 3 L/min. She is awake and has just completed her breakfast. She states that she is "feeling 100 times better." She reports continued dyspnea with minimal exertion, however, states this is much improved. She also has a nonproductive cough. The patient continues to refuse BiPAP she denies fever, chills, chest pain, abdominal pain, nausea vomiting diarrhea. She denies urinary urgency, frequency , and dysuria. Per nursing, the patient continues to refuse BiPAP. They state that she had the BiPAP on for a max of 2 hours overnight. They have no other concerns at this time. The patient reports that she is feeling much better and has no new questions or time. Reason For Visit: ACUTE KIDNEY INJURY, COMPLICATED UTI Physical Exam Vital Signs: Temp Pulse Resp BP Pulse Ox 99.9 F 87 20 117/44 L 96 08/02/17 11:45 08/02/17 11:45 08/02/17 11:45 08/02/17 11:45 08/02/17 11:45 Intake & Output 08/01/17 08/02/17 08/03/17 06:59 06:59 06:59 Intake Total 1930 565 600 Output Total 4000 1200 550 Balance -2069 -5 50 Weight 143 kg 143.3 kg General appearance: PRESENT: no acute distress, morbidly obese, well-developed Head exam: PRESENT: atraumatic, normocephalic Eye exam: PRESENT: conjunctiva pink, EOMI, PERRLA. ABSENT: scleral icterus Ear exam: PRESENT: normal external ear exam Mouth exam: PRESENT: moist, tongue midline Neck exam: ABSENT: carotid bruit, JVD, lymphadenopathy, thyromegaly Respiratory exam: PRESENT: decreased breath sounds - Bibasilar, prolonged expiratory phas, symmetrical, unlabored, other - Supplemental oxygen at 3lpm. ABSENT: rales, rhonchi, wheezes Cardiovascular exam: PRESENT: RRR, +S1, +S2. ABSENT: diastolic murmur, rubs, systolic murmur Pulses: PRESENT: normal dorsalis pedis pul Vascular exam: PRESENT: normal capillary refill GI/Abdominal exam: PRESENT: normal bowel sounds, soft. ABSENT: distended, guarding, mass, organolmegaly, rebound, tenderness Rectal exam: PRESENT: deferred Extremities exam: PRESENT: full ROM. ABSENT: calf tenderness, clubbing, pedal edema Neurological exam: PRESENT: alert, awake, oriented to person, oriented to place , oriented to time, oriented to situation, CN II-XII grossly intact. ABSENT: motor sensory deficit Psychiatric exam: PRESENT: appropriate affect, normal mood. ABSENT: homicidal ideation, suicidal ideation Skin exam: PRESENT: dry, intact, warm. ABSENT: cyanosis, rash Results Laboratory Results: 08/02/17 06:13 08/02/17 08:45 08/02/17 08/02/17 08/02/17 06:13 06:13 08:45 WBC 10.9 H RBC 3.74 Hgb 12.3 Hct 36.6 MCV 98 H MCH 32.9 MCHC 33.7 RDW 15.4 H Plt Count 246 Seg Neutrophils % 80.6 H Lymphocytes % 12.3 L Monocytes % 4.5 Eosinophils % 1.8 Basophils % 0.8 Absolute Neutrophils 8.8 H Absolute Lymphocytes 1.3 Absolute Monocytes 0.5 Absolute Eosinophils 0.2 Absolute Basophils 0.1 Carbonic Acid HCO3/H2CO3 Ratio ABG pH ABG pCO2 ABG pO2 ABG HCO3 ABG O2 Saturation ABG Base Excess FiO2 Sodium Cancelled 144.1 Potassium Cancelled 3.8 Chloride Cancelled 103 Carbon Dioxide Cancelled 31 H Anion Gap Cancelled 10 BUN Cancelled 16 Creatinine Cancelled 0.71 Est GFR ( Amer) Cancelled > 60 Est GFR (Non-Af Amer) Cancelled > 60 Glucose Cancelled 180 H Calcium Cancelled 9.8 Phosphorus Cancelled 3.3 Magnesium Cancelled 1.8 Total Bilirubin Cancelled 0.3 AST Cancelled 24 ALT Cancelled 27 Alkaline Phosphatase Cancelled 69 Total Protein Cancelled 6.0 L Albumin Cancelled 2.6 L 08/02/17 10:27 WBC RBC Hgb Hct MCV MCH MCHC RDW Plt Count Seg Neutrophils % Lymphocytes % Monocytes % Eosinophils % Basophils % Absolute Neutrophils Absolute Lymphocytes Absolute Monocytes Absolute Eosinophils Absolute Basophils Carbonic Acid 1.38 H HCO3/H2CO3 Ratio 22:1 ABG pH 7.44 ABG pCO2 45.7 H ABG pO2 74.7 L ABG HCO3 30.4 H ABG O2 Saturation 95.4 ABG Base Excess 5.5 FiO2 3L Sodium Potassium Chloride Carbon Dioxide Anion Gap BUN Creatinine Est GFR ( Amer) Est GFR (Non-Af Amer) Glucose Calcium Phosphorus Magnesium Total Bilirubin AST ALT Alkaline Phosphatase Total Protein Albumin 07/28/17 06:12 Blood Blood Culture - Final NO GROWTH IN 5 DAYS 08/01/17 08/02/17 04:06 06:13 NT-Pro-B Natriuret Pep 455 H 276 Impressions: Chest/Abdomen CTA 07/26/17 21:03 IMPRESSION: Scattered areas of subsegmental atelectasis are present in both lung bases. No dense consolidation or pleural effusion.No emboli visualized in the main pulmonary arteries or the segmental branches. Pneumobilia. Abdomen/Pelvis CT 08/01/17 00:00 IMPRESSION: No evidence for a renal or perirenal abscess collection is identified. Right renal calculi as noted above. Other findings as noted above. Chest X-Ray 08/01/17 00:00 IMPRESSION: Low lung volumes. No acute findings. Assessment & Plan - Diagnosis (1) Sepsis Qualifiers: Sepsis type: sepsis due to unspecified organism Qualified Code(s): A41.9 - Sepsis, unspecified organism Is this a current diagnosis for this admission?: Yes Plan: Improved; elevated lactate, and tachycardia have resolved. Leukocytosis is slightly increased to 10.8 today. Pt is normotensive. T-max in the last 48 hours was 99.9. Sepsis due to gram-negative rods in blood and urine cultures, present on admission, evidenced by fever (101), tachycardia (135-140 bpm), lactate 2.3, and leukocytosis (13.3). Blood and urine cultures positive for Proteus mirabilis with similar resistance patterns; resistant to nitrofurantoin and tetracycline. Repeat Blood and Urine cultures obtained today. The patient was admitted to the medical floor on continuous cardiac telemetry. She received 7 days of IV Levaquin. Last dose of Levaquin approximately 36 hours ago; antibiotics were held to rule out drug fever. Unfortunately, the patient continues to have low-grade temperature. We will continue to monitor and have low threshold for resuming antibiotic therapy. Hopefully the repeat urinalysis and blood/urine cultures will be able to further guide antibiotic therapy. The patient was adequately fluid resuscitated; IV fluids have since been discontinued secondary to development of fluid volume overload. We will continue to monitor closely for need for additional IV fluids. (2) UTI (urinary tract infection) Qualifiers: Urinary tract infection type: acute cystitis Is this a current diagnosis for this admission?: Yes Plan: The patient endorses a recent history of urinary incontinence and frequent UTIs. She is followed by Dr. Gonzalez (urologist). She is noted to have poor perineal hygiene; currently providing nystatin for giovani to skinfolds. Ortiz catheter has been placed for strict I&O's given the patient's acute renal failure and to maintain strict hygiene. Blood and urine cultures as above. Abdominal and pelvic CT revealed 8 mm nonobstructing stone in the right renal pelvis. As the patient continued to run a high grade temperature (101 overnight) despite 7 days of appropriate antibiotic therapy, antibiotics were held (last dose approximately 36 hours ago) to rule out drug fever. Unfortunately, the patient continues to run low-grade temp; 99.9 today. We will repeat urinalysis and urine culture today. Anticipate need for resuming antibiotics if the patient's fever or WBCs continue trending upward overnight. Urology was consulted; appreciate their evaluation and recommendations. (3) Acute metabolic encephalopathy Is this a current diagnosis for this admission?: Yes Plan: Resolved; likely multifactorial secondary to medication sedation, respiratory acidosis with hypercapnia, and infectious process. The patient is now alert and oriented to baseline. Will provide for patient safety; fall and aspiration precautions. Antibiotics as above. (4) A-fib Qualifiers: Atrial fibrillation type: chronic Qualified Code(s): I48.2 - Chronic atrial fibrillation Is this a current diagnosis for this admission?: Yes Plan: The patient endorses a history of chronic atrial fibrillation. Now sinus rhythm per telemetry. The patient did experience an episode of sustained A. fib on 07/28/17 for which she was briefly placed on digoxin by cardiology. This has has since been discontinued. Her home dosed Tikosyn was resumed. Continue daily aspirin; the patient does not appear to be chronically anticoagulated. (5) COPD (chronic obstructive pulmonary disease) Qualifiers: COPD type: emphysema Emphysema type: centrilobular Qualified Code(s): J43.2 - Centrilobular emphysema Is this a current diagnosis for this admission?: Yes Plan: The patient endorses a history of COPD; she is not home O2 dependent. Outpatient product craftsman is Dr. Monae. Repeat ABG demonstrates compensated respiratory acidosis with hypercapnia; repeat ABG this morning is minimally improved. CXR shows low lung volumes but otherwise no acute cardiopulmonary processes. Continue supplemental oxygen as needed to maintain oxygen saturations greater than 88% We will continue her home dose inhalers, Spiriva and Symbicort. Scheduled and as needed nebulizer treatments are available. The patient has been encouraged to use BiPAP for respiratory acidosis (as well as to assist with volume overload); the patient continues to remain resistant. Will monitor closely for need for steroid therapy. Dr. Monae has been consulted; appreciate his evaluation recommendations. (6) Diabetes Qualifiers: Diabetes mellitus type: type 2 Diabetes mellitus intermediate insulin use: without intermediate use Is this a current diagnosis for this admission?: Yes Plan: Metformin will be held while inpatient. The patient is placed on a consistent carb diet. Accu-Cheks before meals and at bedtime with Humalog for sliding scale coverage. We will ask the registered dietitian to meet with the patient and family members ; appreciate their assistance and recommendations. (7) Obesity hypoventilation syndrome Is this a current diagnosis for this admission?: Yes Plan: BiPAP qHS and as needed. Strongly encourage use. Pulmonology has been consulted; appreciate their evaluation recommendations. (8) Morbid obesity Is this a current diagnosis for this admission?: Yes Plan: The patient's morbid obesity is a complicating factor; it likely contributed to her urinary tract infection by reducing her mobility and perineal hygiene. Further, the patient has developed respiratory acidosis and is noted to have a diagnosis of obesity hypoventilation syndrome in her historical medical records. Her obesity will certainly prolong her recovery. Dietary discretion is advised. Appreciate the registered dietitian's recommendations. (9) ARF (acute renal failure) Qualifiers: Acute renal failure type: unspecified Qualified Code(s): N17.9 - Acute kidney failure, unspecified Is this a current diagnosis for this admission?: Yes Plan: Resolved; prerenal in nature secondary to sepsis and dehydration. Continue Ortiz catheter for strict I&O's. IV fluids are being held secondary to somnolence and evidence of fluid overload requiring Lasix. Avoid nephrotoxic medications. We will monitor with daily chemistries. - Time Time Spent with patient: 25-34 minutes Medications reviewed and adjusted accordingly: Yes Anticipated discharge: Acute Rehab - Inpatient Certification Based on my medical assessment, after consideration of the patient's comorbidities, presenting symptoms, or acuity I expect that the services needed warrant INPATIENT care.: Yes I certify that my determination is in accordance with my understanding of Medicare's requirements for reasonable and necessary INPATIENT services [42 CFR 412.3e].: Yes Medical Necessity: Need Close Monitoring Due to Risk of Patient Decompensation, Need for Nebulizer Therapy and Monitoring of Response, Need for IV Antibiotics
[2017-08-02 14:43] LABS: APPEARANCE,URINE CLEAR; BILIRUBIN,URINE NEGATIVE (NEGATIVE); COLOR,URINE YELLOW; GLUCOSE, URINE NEGATIVE (NEGATIVE); KETONES,URINE NEGATIVE (NEGATIVE); LEUKOCYTE ESTERASE,URINE SMALL (NEGATIVE); NITRITE,URINE NEGATIVE (NEGATIVE); PROTEIN,URINE NEGATIVE (NEGATIVE); URINE SPECIFIC GRAVITY 1.009; UROBILINOGEN,URINE NEGATIVE mg/dL (<2.0)
[2017-08-02] MEDS: DILTIAZEM HCL 120 MG CAP.SR.24H PO SCH (18:25)
[2017-08-03] MEDS: IPRATROPIUM/ALBUTEROL 0.5-2.5 MG/3 ML AMPUL NEB SCH ×3 (01:12→13:57)
[2017-08-03 05:41] LABS: ANION GAP 8 (5-19); BLOOD UREA NITROGEN 13 mg/dL (7-20); CALCIUM 9.8 mg/dL (8.4-10.2); CARBON DIOXIDE 32 mmol/L (22-30); CHLORIDE 105 mmol/L (98-107); GLUCOSE 140 mg/dL (75-110); PHOSPHORUS 4.2 mg/dL (2.5-4.5); POTASSIUM 3.8 mmol/L (3.6-5.0); SODIUM 144.8 mmol/L (137-145)
[2017-08-03] MEDS: LEVOTHYROXINE SODIUM 0.05 MG TABLET PO SCH (05:59)
[2017-08-03] MEDS: HEPARIN SOD (PORCINE) 5,000 UNIT/ML 1 ML SYRINGE SUBCUT SCH ×3 (05:59→22:12)
[2017-08-03] MEDS: LANSOPRAZOLE 30 MG TAB.RAP.DR PO SCH (05:59)
[2017-08-03 07:27] LABS: ABSOLUTE EOSINOPHILS # (AUTO) 0.1 10^3/uL (0.0-0.6); ABSOLUTE LYMPHOCYTES (AUTO) 1.4 10^3/uL (0.5-4.7); ABSOLUTE MONOCYTES (AUTO) 0.4 10^3/uL (0.1-1.4); ABSOLUTE NEUT (AUTO) 7.2 10^3/uL (1.7-8.2); BASOPHILS % (AUTO) 0.5 % (0-2); EOSINOPHILS % (AUTO) 1.5 % (0-6); HEMATOCRIT 33.3 % (36.0-47.0); HEMOGLOBIN 11.3 g/dL (12.0-15.5); LYMPHOCYTES % (AUTO) 15.4 % (13-45); MEAN CORPUSCULAR HGB CONC 34.1 g/dL (32.0-36.0); MEAN CORPUSCULAR VOLUME 97 fl (80-97); MONOCYTES % (AUTO) 4.1 % (3-13); PLATELET COUNT 331 10^3/uL (150-450); RED BLOOD COUNT 3.44 10^6/uL (3.72-5.28); RED CELL DISTRIBUTION WIDTH 15.3 % (11.5-14.0); SEGMENTED NEUTROPHILS % (AUTO) 78.5 % (42-78); TOTAL CELLS COUNTED % (AUTO) 100 %; WHITE BLOOD COUNT 9.2 10^3/uL (4.0-10.5)
--- NOTE | 2017-08-03 09:15 | PDOC PROGRESS REPORT ---
Subjective Progress Note for:: 08/03/17 Subjective:: i feel much better Reason For Visit: ACUTE KIDNEY INJURY, COMPLICATED UTI Physical Exam Vital Signs: Temp Pulse Resp BP Pulse Ox 99.7 F 73 17 126/46 H 95 08/02/17 20:09 08/03/17 07:53 08/03/17 07:53 08/02/17 20:09 08/03/17 07:53 Pulse Oximeter Nocturnal Start: 08/02/17 09: 28 Freq: Q12H Status: Complete Document 08/03/17 05:23 EST (Rec: 08/03/17 06:37 EST [email or web address]) Nocturnal Pulse Oximetry Equipment Usage Equipment Discontinued Oxygen Delivery Method (includes room Nasal Cannula air) O2 Sat by Pulse Oximetry (92-100) 96 Continuous Pulse Oximeter Set Up No Continuous SpO2 Discontinued Yes Continuous SpO2 Machine # 11 Intake & Output 08/02/17 08/03/17 08/04/17 06:59 06:59 06:59 Intake Total 565 2144 Output Total 1200 2250 Balance -635 -106 Weight 143.3 kg 142.2 kg General appearance: PRESENT: no acute distress, cooperative, disheveled, morbidly obese Head exam: PRESENT: atraumatic, normocephalic Eye exam: PRESENT: conjunctiva pale, EOMI. ABSENT: nystagmus, periorbital swelling, scleral icterus Mouth exam: PRESENT: dry mucosa, neck supple, tongue midline Neck exam: ABSENT: carotid bruit, JVD, lymphadenopathy, thyromegaly, tracheal deviation, tracheostomy Respiratory exam: PRESENT: decreased breath sounds, prolonged expiratory phas, rales, rhonchi, unlabored. ABSENT: retraction, stridor Cardiovascular exam: PRESENT: RRR, +S1, +S2 Pulses: PRESENT: normal radial pulses GI/Abdominal exam: PRESENT: diminished bowel sounds, soft Extremities exam: ABSENT: calf tenderness, clubbing, joint swelling Musculoskeletal exam: ABSENT: deformity, dislocation Neurological exam: PRESENT: alert, awake Psychiatric exam: PRESENT: normal mood Skin exam: PRESENT: dry, warm Results Laboratory Results: 08/03/17 05:04 08/03/17 05:04 08/02/17 08/02/17 08/02/17 08:45 10:27 14:12 WBC RBC Hgb Hct MCV MCH MCHC RDW Plt Count Seg Neutrophils % Lymphocytes % Monocytes % Eosinophils % Basophils % Absolute Neutrophils Absolute Lymphocytes Absolute Monocytes Absolute Eosinophils Absolute Basophils Carbonic Acid 1.38 H HCO3/H2CO3 Ratio 22:1 ABG pH 7.44 ABG pCO2 45.7 H ABG pO2 74.7 L ABG HCO3 30.4 H ABG O2 Saturation 95.4 ABG Base Excess 5.5 FiO2 3L Sodium 144.1 Potassium 3.8 Chloride 103 Carbon Dioxide 31 H Anion Gap 10 BUN 16 Creatinine 0.71 Est GFR ( Amer) > 60 Est GFR (Non-Af Amer) > 60 Glucose 180 H Calcium 9.8 Phosphorus 3.3 Magnesium 1.8 Total Bilirubin 0.3 AST 24 ALT 27 Alkaline Phosphatase 69 Total Protein 6.0 L Albumin 2.6 L Urine Color YELLOW Urine Appearance CLEAR Urine pH 6.0 Ur Specific [place] 1.009 Urine Protein NEGATIVE Urine Glucose (UA) NEGATIVE Urine Ketones NEGATIVE Urine Blood NEGATIVE Urine Nitrite NEGATIVE Ur Leukocyte Esterase SMALL H Urine WBC (Auto) 9 Urine RBC (Auto) 0 08/03/17 08/03/17 05:04 05:04 WBC 9.2 RBC 3.44 L Hgb 11.3 L Hct 33.3 L MCV 97 MCH 33.0 MCHC 34.1 RDW 15.3 H Plt Count 331 Seg Neutrophils % 78.5 H Lymphocytes % 15.4 Monocytes % 4.1 Eosinophils % 1.5 Basophils % 0.5 Absolute Neutrophils 7.2 Absolute Lymphocytes 1.4 Absolute Monocytes 0.4 Absolute Eosinophils 0.1 Absolute Basophils 0.0 Carbonic Acid HCO3/H2CO3 Ratio ABG pH ABG pCO2 ABG pO2 ABG HCO3 ABG O2 Saturation ABG Base Excess FiO2 Sodium 144.8 Potassium 3.8 Chloride 105 Carbon Dioxide 32 H Anion Gap 8 BUN 13 Creatinine 0.67 Est GFR ( Amer) > 60 Est GFR (Non-Af Amer) > 60 Glucose 140 H Calcium 9.8 Phosphorus 4.2 Magnesium 1.8 Total Bilirubin AST ALT Alkaline Phosphatase Total Protein Albumin Urine Color Urine Appearance Urine pH Ur Specific [place] Urine Protein Urine Glucose (UA) Urine Ketones Urine Blood Urine Nitrite Ur Leukocyte Esterase Urine WBC (Auto) Urine RBC (Auto) 07/28/17 06:12 Blood Blood Culture - Final NO GROWTH IN 5 DAYS 08/01/17 08/02/17 04:06 06:13 NT-Pro-B Natriuret Pep 455 H 276 Impressions: Chest/Abdomen CTA 07/26/17 21:03 IMPRESSION: Scattered areas of subsegmental atelectasis are present in both lung bases. No dense consolidation or pleural effusion.No emboli visualized in the main pulmonary arteries or the segmental branches. Pneumobilia. Abdomen/Pelvis CT 08/01/17 00:00 IMPRESSION: No evidence for a renal or perirenal abscess collection is identified. Right renal calculi as noted above. Other findings as noted above. Chest X-Ray 08/01/17 00:00 IMPRESSION: Low lung volumes. No acute findings. Assessment & Plan - Diagnosis (1) Complicated UTI (urinary tract infection) Is this a current diagnosis for this admission?: Yes Plan: 07/28/17 06:45 Blood Culture - Final Blood Proteus Mirabilis 07/28/17 06:12 Blood Culture - Final Blood NO GROWTH IN 5 DAYS 07/27/17 04:05 Blood Culture - Final Blood Proteus Mirabilis 07/27/17 03:55 Blood Culture - Final Blood Proteus Mirabilis 07/26/17 22:37 Urine Culture - Final Catheterized Urine Proteus Mirabilis 07/26/17 21:00 Blood Culture - Final Blood Proteus Mirabilis 07/26/17 19:45 Blood Culture - Final Blood Proteus Mirabilis (2) Morbid obesity Is this a current diagnosis for this admission?: Yes (3) Sepsis Is this a current diagnosis for this admission?: Yes Plan: Proteus Mirabilis improved (4) UTI (urinary tract infection) Qualifiers: Urinary tract infection type: site unspecified Hematuria presence: without hematuria Qualified Code(s): N39.0 - Urinary tract infection, site not specified Is this a current diagnosis for this admission?: Yes Plan: suggest repeat ua (5) Obesity hypoventilation syndrome Is this a current diagnosis for this admission?: Yes Plan: attempt to qualify home bipap
[2017-08-03] MEDS: TIOTROPIUM BROMIDE DPI 5 CAP/KIT (18 MCG/CAP) IH SCH (10:18)
[2017-08-03] MEDS: DOFETILIDE 125 MCG CAPSULE PO SCH ×2 (10:19→22:13)
[2017-08-03] MEDS: ANASTROZOLE 1 MG TABLET PO SCH (10:19)
[2017-08-03] MEDS: ASPIRIN 81 MG TABLET, ENT COATED PO SCH (10:19)
[2017-08-03] MEDS: GABAPENTIN 300 MG CAPSULE PO SCH ×2 (10:19→22:13)
[2017-08-03] MEDS: BUDESONIDE/FORMOTEROL 160-4.5 MCG 60 PUFF/6 GM MDI IH SCH ×2 (10:21→22:13)
[2017-08-03] MEDS: LATANOPROST 0.005% OPH SOLN 2.5 ML OU SCH (10:26)
[2017-08-03] MEDS: INSULIN LISPRO 100 UNIT/ML 3 ML VIAL SUBCUT PRN ×2 (11:48→18:28)
[2017-08-03] MEDS ORDERED: ACETAMINOPHEN 325 MG TABLET PO PRN (14:04)
--- NOTE | 2017-08-03 14:08 | PDOC PROGRESS REPORT ---
Subjective Progress Note for:: 08/03/17 Subjective:: The patient is an 82-year-old female with a past medical history of hypertension , hyperlipidemia, morbid obesity, COPD, diabetes, and atrial fibrillation who was admitted on 07/27/17 for sepsis secondary to urinary tract infection with acute kidney injury. The patient is seen on morning rounds. She is found sitting upright in the recliner on supplemental oxygen at 3 L/min. She is awake and eating her breakfast. She states that she is feeling well today. She reports continued dyspnea with minimal exertion. She is encouraged by increase in energy and strength today; she did not require as much assistance getting out of bed today. She denies fever, chills, chest pain, abdominal pain, nausea vomiting diarrhea. She denies urinary urgency, frequency, and dysuria. Per nursing, the patient wore BiPAP for approximately 2 hours overnight. They have no other concerns at this time. The patient has no new questions or concerns today. Anticipate she will be ready for [facility] tomorrow. Reason For Visit: ACUTE KIDNEY INJURY, COMPLICATED UTI Physical Exam Vital Signs: Temp Pulse Resp BP Pulse Ox 98.6 F 83 18 106/40 L 93 08/03/17 08:30 08/03/17 08:30 08/03/17 08:30 08/03/17 08:30 08/03/17 08:30 Pulse Oximeter Nocturnal Start: 08/02/17 09: 28 Freq: Q12H Status: Complete Document 08/03/17 05:23 EST (Rec: 08/03/17 06:37 EST [email or web address]) Nocturnal Pulse Oximetry Equipment Usage Equipment Discontinued Oxygen Delivery Method (includes room Nasal Cannula air) O2 Sat by Pulse Oximetry (92-100) 96 Continuous Pulse Oximeter Set Up No Continuous SpO2 Discontinued Yes Continuous SpO2 Machine # 11 Intake & Output 08/02/17 08/03/17 08/04/17 06:59 06:59 06:59 Intake Total 565 2144 Output Total 1200 2250 Balance -635 -106 Weight 143.3 kg 142.2 kg General appearance: PRESENT: no acute distress, cooperative, morbidly obese, well-developed, well-nourished Head exam: PRESENT: atraumatic, normocephalic Eye exam: PRESENT: conjunctiva pink, EOMI, PERRLA. ABSENT: scleral icterus Ear exam: PRESENT: normal external ear exam Mouth exam: PRESENT: moist, tongue midline Neck exam: ABSENT: carotid bruit, JVD, lymphadenopathy, thyromegaly Respiratory exam: PRESENT: decreased breath sounds - Bibasilar; secondary to poor inspiratory effort and body habitus, rhonchi, symmetrical, unlabored, other - Supplemental oxygen via NC. ABSENT: rales, wheezes Cardiovascular exam: PRESENT: RRR, +S1, +S2. ABSENT: diastolic murmur, rubs, systolic murmur Pulses: PRESENT: normal dorsalis pedis pul Vascular exam: PRESENT: normal capillary refill GI/Abdominal exam: PRESENT: normal bowel sounds, soft. ABSENT: distended, guarding, mass, organolmegaly, rebound, tenderness Rectal exam: PRESENT: deferred Extremities exam: PRESENT: full ROM. ABSENT: calf tenderness, clubbing, pedal edema Neurological exam: PRESENT: alert, awake, oriented to person, oriented to place , oriented to time, oriented to situation, CN II-XII grossly intact. ABSENT: motor sensory deficit Psychiatric exam: PRESENT: appropriate affect, normal mood. ABSENT: homicidal ideation, suicidal ideation Skin exam: PRESENT: dry, intact, warm. ABSENT: cyanosis, rash Results Laboratory Results: 08/03/17 05:04 08/03/17 05:04 08/02/17 08/03/17 08/03/17 14:12 05:04 05:04 WBC 9.2 RBC 3.44 L Hgb 11.3 L Hct 33.3 L MCV 97 MCH 33.0 MCHC 34.1 RDW 15.3 H Plt Count 331 Seg Neutrophils % 78.5 H Lymphocytes % 15.4 Monocytes % 4.1 Eosinophils % 1.5 Basophils % 0.5 Absolute Neutrophils 7.2 Absolute Lymphocytes 1.4 Absolute Monocytes 0.4 Absolute Eosinophils 0.1 Absolute Basophils 0.0 Sodium 144.8 Potassium 3.8 Chloride 105 Carbon Dioxide 32 H Anion Gap 8 BUN 13 Creatinine 0.67 Est GFR ( Amer) > 60 Est GFR (Non-Af Amer) > 60 Glucose 140 H Calcium 9.8 Phosphorus 4.2 Magnesium 1.8 Urine Color YELLOW Urine Appearance CLEAR Urine pH 6.0 Ur Specific [place] 1.009 Urine Protein NEGATIVE Urine Glucose (UA) NEGATIVE Urine Ketones NEGATIVE Urine Blood NEGATIVE Urine Nitrite NEGATIVE Ur Leukocyte Esterase SMALL H Urine WBC (Auto) 9 Urine RBC (Auto) 0 08/01/17 08/02/17 04:06 06:13 NT-Pro-B Natriuret Pep 455 H 276 Impressions: Chest/Abdomen CTA 07/26/17 21:03 IMPRESSION: Scattered areas of subsegmental atelectasis are present in both lung bases. No dense consolidation or pleural effusion.No emboli visualized in the main pulmonary arteries or the segmental branches. Pneumobilia. Abdomen/Pelvis CT 08/01/17 00:00 IMPRESSION: No evidence for a renal or perirenal abscess collection is identified. Right renal calculi as noted above. Other findings as noted above. Chest X-Ray 08/01/17 00:00 IMPRESSION: Low lung volumes. No acute findings. Assessment & Plan - Diagnosis (1) Sepsis Qualifiers: Sepsis type: sepsis due to unspecified organism Qualified Code(s): A41.9 - Sepsis, unspecified organism Is this a current diagnosis for this admission?: Yes Plan: Resolved; leukocytosis, elevated lactate, tachycardia, tachypnea and fever have resolved. T-max in last 48 hours was 99.9. Sepsis due to gram-negative rods in blood and urine cultures, present on admission, evidenced by fever (101), tachycardia (135-140 bpm), lactate 2.3, and leukocytosis (13.3). Blood and urine cultures positive for Proteus mirabilis with similar resistance patterns; resistant to nitrofurantoin and tetracycline. Repeat Blood cultures have no growth at 24 hours. Repeat urine culture pending. The patient was admitted to the medical floor on continuous cardiac telemetry. She received 7 days of IV Levaquin. The patient was adequately fluid resuscitated; IV fluids have since been discontinued secondary to development of fluid volume overload. We will continue to monitor closely for need for additional IV fluids. (2) UTI (urinary tract infection) Qualifiers: Urinary tract infection type: acute cystitis Is this a current diagnosis for this admission?: Yes Plan: The patient endorses a recent history of urinary incontinence and frequent UTIs. She is followed by Dr. Gonzalez (urologist). She is noted to have poor perineal hygiene; currently providing nystatin for giovani to skinfolds. Blood and urine cultures as above. Abdominal and pelvic CT revealed 8 mm nonobstructing stone in the right renal pelvis. Repeat urinalysis is negative. Repeat urine culture pending. The patient received Levaquin 7 days. Urology was consulted; appreciate their evaluation and recommendations. (3) Acute metabolic encephalopathy Is this a current diagnosis for this admission?: Yes Plan: Resolved; likely multifactorial secondary to medication sedation, respiratory acidosis with hypercapnia, and infectious process. The patient is now alert and oriented to baseline. Will provide for patient safety; fall and aspiration precautions. Avoid sedating medications. Antibiotics as above. (4) A-fib Qualifiers: Atrial fibrillation type: chronic Qualified Code(s): I48.2 - Chronic atrial fibrillation Is this a current diagnosis for this admission?: Yes Plan: The patient endorses a history of chronic atrial fibrillation. Now sinus rhythm per telemetry. The patient did experience an episode of sustained A. fib on 07/28/17 for which she was briefly placed on digoxin by cardiology. This has has since been discontinued. Cardiology was previously consulted (have signed off); will continue cardiac medications per their recommendations. Continue home dosed Tikosyn was resumed. Continue Diltiazem. Continue daily aspirin; the patient does not appear to be chronically anticoagulated. (5) COPD (chronic obstructive pulmonary disease) Qualifiers: COPD type: emphysema Emphysema type: centrilobular Qualified Code(s): J43.2 - Centrilobular emphysema Is this a current diagnosis for this admission?: Yes Plan: The patient endorses a history of COPD; she is not home O2 dependent. 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 ABGs demonstrated compensated respiratory acidosis with hypercapnia; repeat ABGs slightly improved. CXR shows low lung volumes but otherwise no acute cardiopulmonary processes. Continue supplemental oxygen as needed to maintain oxygen saturations greater than 88%; will attempt to wean oxygen. We will continue her home dose inhalers, Spiriva and Symbicort. As needed nebulizer treatments are available. The patient has been encouraged to use BiPAP; the patient continues to remain resistant. Will monitor closely for need for steroid therapy. Dr. Monae has been consulted; appreciate his evaluation recommendations. 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 The patient is placed on a consistent carb diet. Accu-Cheks before meals and at bedtime with Humalog for sliding scale coverage. We will ask the registered dietitian to meet with the patient and family members ; appreciate their assistance and recommendations. (7) Obesity hypoventilation syndrome Is this a current diagnosis for this admission?: Yes Plan: BiPAP qHS and as needed. Strongly encourage use. Pulmonology has been consulted; appreciate their evaluation recommendations. (8) Morbid obesity Is this a current diagnosis for this admission?: Yes Plan: The patient's morbid obesity is a complicating factor; it likely contributed to her urinary tract infection by reducing her mobility and perineal hygiene. Further, the patient has developed respiratory acidosis and is noted to have a diagnosis of obesity hypoventilation syndrome in her historical medical records. Her obesity will certainly prolong her recovery. Dietary discretion is advised. Appreciate the registered dietitian's recommendations. (9) ARF (acute renal failure) Qualifiers: Acute renal failure type: unspecified Qualified Code(s): N17.9 - Acute kidney failure, unspecified Is this a current diagnosis for this admission?: Yes Plan: Resolved; prerenal in nature secondary to sepsis and dehydration. Continue Ortiz catheter for strict I&O's. IV fluids are being held secondary to somnolence and evidence of fluid overload requiring Lasix. Avoid nephrotoxic medications. We will monitor with daily chemistries. - Time Time Spent with patient: 25-34 minutes Medications reviewed and adjusted accordingly: Yes Anticipated discharge: SNF Within: within 24 hours
--- NOTE | 2017-08-03 15:04 | Pulmonary Function Test ---
Pulmonary Function Test Date of Procedure:: 08/03/17 INDICATION:: Dyspnea Referring Provider: Jennifer Olivera MUSIC MANAGER-C - Report Spirometry: FVC 1.29 L 41% postbronchodilator 1.23 L 39% FEV1 0.89 37% postbronchodilator 0.94 39% FEV1/FVC % 69 postbronchodilator 76 predicted 76 FEF 25-75% 1.60 63% postbronchodilator 1.00 42% Impression: Study demonstrates severe obstructive ventilatory defect with insignificant response to bronchodilator therapy. This in and of itself does not preclude a clinical trial of bronchodilator therapy. Restrictive ventilatory defect is suggested but cannot be diagnosed on the basis of spirometry alone if clinically warrented complete pulmonary function testing would be indicated.
[2017-08-03] MEDS: DILTIAZEM HCL 120 MG CAP.SR.24H PO SCH (18:16)
[2017-08-03] MEDS ORDERED: ALPRAZOLAM 0.5 MG TABLET PO PRN (19:44)
--- NOTE | 2017-08-03 20:02 | PDOC PROGRESS REPORT ---
Subjective Progress Note for:: 07/31/17 Subjective:: Patient seems to be doing better. Pt is denying any chest arm or neck discomfort. Still has shortness of breath but patient denying any PND, orthopnea. Patient denied any sustained palpitations, dizziness, syncope, near syncope. Patient denying any fever chills. Patient denying any other significant discomfort. Wheezing and dyspnea has improved. Patient is maintaining sinus rhythm. Patient was in atrial fibrillation previously. Review of systems: Rest review of systems negative. Medications: Medications have been reviewed. Reason For Visit: ACUTE KIDNEY INJURY, COMPLICATED UTI Physical Exam Vital Signs: Temp Pulse Resp BP Pulse Ox 98.5 F 103 H 22 H 143/54 H 96 07/31/17 15:57 07/31/17 19:00 07/31/17 15:57 07/31/17 15:57 07/31/17 16:30 Intake & Output 07/30/17 07/31/17 08/01/17 06:59 06:59 06:59 Intake Total 7360 1404 1270 Output Total 5350 3050 1400 Balance 2009 Weight 147.5 kg 142.6 kg Exam: GENERAL: well-nourished and in no acute distress. Alert and oriented x3 HEAD: Atraumatic, normocephalic. EYES: Pupils equal round and reactive to light, extraocular movements intact, sclera anicteric, conjunctiva are normal. ENT: TMs normal, nares patent, oropharynx clear without exudates. Moist mucous membranes. No oral ulcerations or bleeding gums noted NECK: supple without lymphadenopathy. Trachea is central. No cervical or axillary lymphadenopathy noted. Carotids are 2+, JVD WNL LUNGS: Respiration seems nonlabored, no significant accessory muscle action noted. Bibasilar fine crackles and scattered wheezes rales or rhonchi noted. No significant dullness noted on percussion. CHEST: Palpation of the chest wall shows no significant chest wall tenderness. 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 ABDOMEN: Soft, no significant tenderness appreciated, normoactive bowel sounds. No guarding, no rebound. No rigidity noted . No masses appreciated. EXTREMITIES: Pedal pulses are 1-2+, no calf tenderness noted. No clubbing or cyanosis. 1+ pedal edema noted NEUROLOGICAL: Focused neurological exam showed no significant neurologic deficit. Normal speech, no focal weakness appreciated. PSYCH: Normal mood, normal affect. Judgment and insight within normal limits. SKIN: No significant ecchymosis, skin is noted to be warm. MUSCULOSKELETAL EXAM: No significant acute joint swelling noted. Results Laboratory Results: 07/31/17 04:53 07/31/17 13:49 07/31/17 07/31/17 07/31/17 04:53 04:53 13:49 WBC 8.0 RBC 3.46 L Hgb 11.2 L Hct 33.3 L MCV 96 MCH 32.5 MCHC 33.8 RDW 14.9 H Plt Count 104 L Sodium 144.6 143.9 Potassium 3.4 L 4.0 Chloride 105 106 Carbon Dioxide 31 H 31 H Anion Gap 9 7 BUN 22 H 19 Creatinine 0.84 0.75 Est GFR ( Amer) > 60 > 60 Est GFR (Non-Af Amer) > 60 > 60 Glucose 140 H 170 H Calcium 9.8 9.9 Phosphorus 2.9 Magnesium 1.9 EKG Comments: Shows sinus rhythm without any sustained tachycardia or bradycardia. Impressions: Chest/Abdomen CTA 07/26/17 21:03 IMPRESSION: Scattered areas of subsegmental atelectasis are present in both lung bases. No dense consolidation or pleural effusion.No emboli visualized in the main pulmonary arteries or the segmental branches. Pneumobilia. Chest X-Ray 07/29/17 00:00 IMPRESSION: LOW LUNG VOLUMES. Basilar atelectasis. Assessment & Plan - Diagnosis (1) Atrial fibrillation with RVR Is this a current diagnosis for this admission?: Yes (2) Complicated UTI (urinary tract infection) Is this a current diagnosis for this admission?: Yes (3) CAD (coronary artery disease) Qualifiers: Coronary Disease-Associated Artery/Lesion type: [place] artery [place] vs. transplanted heart: [place] heart Associated angina: without angina Qualified Code(s): I25.10 - Atherosclerotic heart disease of [place] coronary artery without angina pectoris Is this a current diagnosis for this admission?: Yes (4) COPD (chronic obstructive pulmonary disease) Qualifiers: COPD type: unspecified COPD Qualified Code(s): J44.9 - Chronic obstructive pulmonary disease, unspecified Is this a current diagnosis for this admission?: Yes (5) Hypotension (arterial) Qualifiers: Hypotension type: unspecified hypotension type Qualified Code(s): I95.9 - Hypotension, unspecified Is this a current diagnosis for this admission?: Yes - Notes Notes: Atrial fibrillation with rapid ventricular response: Patient converted to sinus rhythm and is maintaining sinus rhythm. Currently has mild sinus tachycardia. Started Cardizem at low-dose. Continue antiarrhythmic therapy with dofetilide. Hypotension: Blood pressure seems reasonably stable. Continue patient on Cardizem CD 120 mg p.o. daily. Hold if blood pressure less than 90. Coronary artery disease: Symptomatically stable. EKG did not show any acute ischemia. COPD: Continue current therapy. Recommend pulmonary consultation and follow-up. Complicated UTI with possible urosepsis: Continue broad-spectrum antibiotics. Obesity: Patient has significant obesity. Currently is stable. - Time Time with patient: 15-25 minutes - CODE STATUS was discussed, patient remains full code. Surrogate decision-maker unchanged. Multiple medical problems were addressed. More than 50% of the time spent coordinating care, discussing management plans with involved caregivers. Management plans discussed with involved personnels. Medical decision making was of moderate to high complexity , patient's has multiple comorbidities. Medications reviewed and adjusted accordingly: Yes
--- NOTE | 2017-08-03 20:05 | PDOC PROGRESS REPORT ---
Subjective Progress Note for:: 08/01/17 Subjective:: Patient seems to be doing better. No significant complaints still has some shortness of breath. Patient has not been very active. Pt is denying any chest arm or neck discomfort. Patient denying any PND, orthopnea. Patient denied any sustained palpitations, dizziness, syncope, near syncope. Patient denying any fever chills. Patient denying any other significant discomfort. Wheezing and dyspnea has improved. Patient is maintaining sinus rhythm. Review of systems: Rest review of systems negative. Medications: Medications have been reviewed. Reason For Visit: ACUTE KIDNEY INJURY, COMPLICATED UTI Physical Exam Vital Signs: Temp Pulse Resp BP Pulse Ox 99.3 F 81 24 H 142/57 H 96 08/01/17 15:34 08/01/17 15:34 08/01/17 16:04 08/01/17 15:34 08/01/17 16:04 Intake & Output 07/31/17 08/01/17 08/02/17 06:59 06:59 06:59 Intake Total 1404 1930 20 Output Total 3050 4000 1200 Balance -1646 -2070 -1180 Weight 142.6 kg 143 kg Exam: GENERAL: well-nourished and in no acute distress. Alert and oriented x3 HEAD: Atraumatic, normocephalic. EYES: Pupils equal round and reactive to light, extraocular movements intact, sclera anicteric, conjunctiva are normal. ENT: TMs normal, nares patent, oropharynx clear without exudates. Moist mucous membranes. No oral ulcerations or bleeding gums noted NECK: supple without lymphadenopathy. Trachea is central. No cervical or axillary lymphadenopathy noted. Carotids are 2+, JVD WNL LUNGS: Respiration seems nonlabored, no significant accessory muscle action noted. Bibasilar fine crackles and few a scattered wheezes rales or rhonchi noted. No significant dullness noted on percussion. CHEST: Palpation of the chest wall shows no significant chest wall tenderness. 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 ABDOMEN: Soft, no significant tenderness appreciated, normoactive bowel sounds. No guarding, no rebound. No rigidity noted . No masses appreciated. EXTREMITIES: Pedal pulses are 1-2+, no calf tenderness noted. No clubbing or cyanosis. 1+ pedal edema noted NEUROLOGICAL: Focused neurological exam showed no significant neurologic deficit. Normal speech, no focal weakness appreciated. PSYCH: Normal mood, normal affect. Judgment and insight within normal limits. SKIN: No significant ecchymosis, skin is noted to be warm. MUSCULOSKELETAL EXAM: No significant acute joint swelling noted. Results Laboratory Results: 08/01/17 04:06 08/01/17 04:06 08/01/17 08/01/17 08/01/17 04:06 04:06 10:50 WBC 9.9 RBC 3.60 L Hgb 11.7 L Hct 35.0 L MCV 97 MCH 32.7 MCHC 33.5 RDW 15.1 H Plt Count 186 Seg Neutrophils % 76.9 Lymphocytes % 12.5 L Monocytes % 8.7 Eosinophils % 1.7 Basophils % 0.2 Absolute Neutrophils 7.6 Absolute Lymphocytes 1.2 Absolute Monocytes 0.9 Absolute Eosinophils 0.2 Absolute Basophils 0.0 Carbonic Acid 1.63 H HCO3/H2CO3 Ratio 18:1 ABG pH 7.37 ABG pCO2 54.3 H ABG pO2 97.3 ABG HCO3 30.8 H ABG O2 Saturation 97.1 ABG Base Excess 4.3 FiO2 40% Sodium 149.7 H Potassium 4.2 Chloride 108 H Carbon Dioxide 29 Anion Gap 13 BUN 18 Creatinine 0.73 Est GFR ( Amer) > 60 Est GFR (Non-Af Amer) > 60 Glucose 128 H Calcium 9.9 Phosphorus 3.3 Magnesium 2.0 07/28/17 06:45 Blood Blood Culture - Final Proteus Mirabilis 08/01/17 04:06 NT-Pro-B Natriuret Pep 455 H EKG Comments: Telemetry shows sinus rhythm without any sustained tachycardia or bradycardia arrhythmias. Impressions: Chest/Abdomen CTA 07/26/17 21:03 IMPRESSION: Scattered areas of subsegmental atelectasis are present in both lung bases. No dense consolidation or pleural effusion.No emboli visualized in the main pulmonary arteries or the segmental branches. Pneumobilia. Abdomen/Pelvis CT 08/01/17 00:00 IMPRESSION: No evidence for a renal or perirenal abscess collection is identified. Right renal calculi as noted above. Other findings as noted above. Chest X-Ray 08/01/17 00:00 IMPRESSION: Low lung volumes. No acute findings. Assessment & Plan - Diagnosis (1) Atrial fibrillation with RVR Is this a current diagnosis for this admission?: Yes (2) Complicated UTI (urinary tract infection) Is this a current diagnosis for this admission?: Yes (3) CAD (coronary artery disease) Qualifiers: Coronary Disease-Associated Artery/Lesion type: [place] artery [place] vs. transplanted heart: [place] heart Associated angina: without angina Qualified Code(s): I25.10 - Atherosclerotic heart disease of [place] coronary artery without angina pectoris Is this a current diagnosis for this admission?: Yes (4) COPD (chronic obstructive pulmonary disease) Qualifiers: COPD type: unspecified COPD Qualified Code(s): J44.9 - Chronic obstructive pulmonary disease, unspecified Is this a current diagnosis for this admission?: Yes (5) Hypotension (arterial) Qualifiers: Hypotension type: unspecified hypotension type Qualified Code(s): I95.9 - Hypotension, unspecified Is this a current diagnosis for this admission?: Yes - Notes Notes: Chest x-ray reviewed. Shows borderline cardiomegaly. Mild pulmonary venous congestion noted but it is due to body habitus. No CHF noted by my review. Dr. Monae to see the patient. Atrial fibrillation with rapid ventricular response: Patient maintaining sinus rhythm. Continue Cardizem at low-dose. Continue antiarrhythmic therapy with dofetilide. Hypotension: Blood pressure seems reasonably stable. Continue patient on Cardizem CD 120 mg p.o. daily. Coronary artery disease: Symptomatically stable. EKG did not show any acute ischemia. COPD: Continue current therapy. Complicated UTI with possible urosepsis: Continue broad-spectrum antibiotics. Obesity: Patient has significant obesity. Currently is stable. - Time Time with patient: 15-25 minutes - CODE STATUS was discussed, patient remains full code. Surrogate decision-maker unchanged. Multiple medical problems were addressed. More than 50% of the time spent coordinating care, discussing management plans with involved caregivers. Management plans discussed with involved personnels. Medical decision making was of moderate to high complexity , patient's has multiple comorbidities. Medications reviewed and adjusted accordingly: Yes
--- NOTE | 2017-08-03 20:11 | PDOC PROGRESS REPORT ---
Subjective Progress Note for:: 08/02/17 Subjective:: Patient evaluated by urologist and also cardiac nurse specialist. It seems patient is not going to have surgery for renal stones. Patient seems to be doing better. Patient sitting in bedside chair comfortable. No new complaints. Pt is denying any chest arm or neck discomfort. Patient denying any PND, orthopnea. Patient denied any sustained palpitations, dizziness, syncope, near syncope. Patient denying any fever chills. Patient denying any other significant discomfort. Wheezing and dyspnea has improved. Patient is maintaining sinus rhythm. Review of systems: Rest review of systems negative. Medications: Medications have been reviewed. Reason For Visit: ACUTE KIDNEY INJURY, COMPLICATED UTI Physical Exam Vital Signs: Temp Pulse Resp BP Pulse Ox 99.7 F 88 18 126/46 H 98 08/02/17 20:09 08/02/17 20:09 08/02/17 20:09 08/02/17 20:09 08/02/17 20:09 Intake & Output 08/01/17 08/02/17 08/03/17 06:59 06:59 06:59 Intake Total 0033 725 6501 Output Total 4000 1200 750 Balance -2070 -635 544 Weight 143 kg 143.3 kg Exam: GENERAL: well-nourished and in no acute distress. Alert and oriented x3 HEAD: Atraumatic, normocephalic. EYES: Pupils equal round and reactive to light, extraocular movements intact, sclera anicteric, conjunctiva are normal. ENT: TMs normal, nares patent, oropharynx clear without exudates. Moist mucous membranes. No oral ulcerations or bleeding gums noted NECK: supple without lymphadenopathy. Trachea is central. No cervical or axillary lymphadenopathy noted. Carotids are 2+, JVD WNL LUNGS: Respiration seems nonlabored, no significant accessory muscle action noted. Few bibasilar crackles and few scattered wheezes rales or rhonchi noted. No significant dullness noted on percussion. CHEST: Palpation of the chest wall shows no significant chest wall tenderness. 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 ABDOMEN: Soft, no significant tenderness appreciated, normoactive bowel sounds. No guarding, no rebound. No rigidity noted . No masses appreciated. EXTREMITIES: Pedal pulses are 1-2+, no calf tenderness noted. No clubbing or cyanosis. 1+ pedal edema noted NEUROLOGICAL: Focused neurological exam showed no significant neurologic deficit. Normal speech, no focal weakness appreciated. PSYCH: Normal mood, normal affect. Judgment and insight within normal limits. SKIN: No significant ecchymosis, skin is noted to be warm. MUSCULOSKELETAL EXAM: No significant acute joint swelling noted. Results Laboratory Results: 08/02/17 06:13 08/02/17 08:45 08/02/17 08/02/17 08/02/17 06:13 06:13 08:45 WBC 10.9 H RBC 3.74 Hgb 12.3 Hct 36.6 MCV 98 H MCH 32.9 MCHC 33.7 RDW 15.4 H Plt Count 246 Seg Neutrophils % 80.6 H Lymphocytes % 12.3 L Monocytes % 4.5 Eosinophils % 1.8 Basophils % 0.8 Absolute Neutrophils 8.8 H Absolute Lymphocytes 1.3 Absolute Monocytes 0.5 Absolute Eosinophils 0.2 Absolute Basophils 0.1 Carbonic Acid HCO3/H2CO3 Ratio ABG pH ABG pCO2 ABG pO2 ABG HCO3 ABG O2 Saturation ABG Base Excess FiO2 Sodium Cancelled 144.1 Potassium Cancelled 3.8 Chloride Cancelled 103 Carbon Dioxide Cancelled 31 H Anion Gap Cancelled 10 BUN Cancelled 16 Creatinine Cancelled 0.71 Est GFR ( Amer) Cancelled > 60 Est GFR (Non-Af Amer) Cancelled > 60 Glucose Cancelled 180 H Calcium Cancelled 9.8 Phosphorus Cancelled 3.3 Magnesium Cancelled 1.8 Total Bilirubin Cancelled 0.3 AST Cancelled 24 ALT Cancelled 27 Alkaline Phosphatase Cancelled 69 Total Protein Cancelled 6.0 L Albumin Cancelled 2.6 L Urine Color Urine Appearance Urine pH Ur Specific [place] Urine Protein Urine Glucose (UA) Urine Ketones Urine Blood Urine Nitrite Ur Leukocyte Esterase Urine WBC (Auto) Urine RBC (Auto) 08/02/17 08/02/17 10:27 14:12 WBC RBC Hgb Hct MCV MCH MCHC RDW Plt Count Seg Neutrophils % Lymphocytes % Monocytes % Eosinophils % Basophils % Absolute Neutrophils Absolute Lymphocytes Absolute Monocytes Absolute Eosinophils Absolute Basophils Carbonic Acid 1.38 H HCO3/H2CO3 Ratio 22:1 ABG pH 7.44 ABG pCO2 45.7 H ABG pO2 74.7 L ABG HCO3 30.4 H ABG O2 Saturation 95.4 ABG Base Excess 5.5 FiO2 3L Sodium Potassium Chloride Carbon Dioxide Anion Gap BUN Creatinine Est GFR ( Amer) Est GFR (Non-Af Amer) Glucose Calcium Phosphorus Magnesium Total Bilirubin AST ALT Alkaline Phosphatase Total Protein Albumin Urine Color YELLOW Urine Appearance CLEAR Urine pH 6.0 Ur Specific [place] 1.009 Urine Protein NEGATIVE Urine Glucose (UA) NEGATIVE Urine Ketones NEGATIVE Urine Blood NEGATIVE Urine Nitrite NEGATIVE Ur Leukocyte Esterase SMALL H Urine WBC (Auto) 9 Urine RBC (Auto) 0 07/28/17 06:12 Blood Blood Culture - Final NO GROWTH IN 5 DAYS 08/01/17 08/02/17 04:06 06:13 NT-Pro-B Natriuret Pep 455 H 276 EKG Comments: Telemetry shows sinus rhythm. Impressions: Chest/Abdomen CTA 07/26/17 21:03 IMPRESSION: Scattered areas of subsegmental atelectasis are present in both lung bases. No dense consolidation or pleural effusion.No emboli visualized in the main pulmonary arteries or the segmental branches. Pneumobilia. Abdomen/Pelvis CT 08/01/17 00:00 IMPRESSION: No evidence for a renal or perirenal abscess collection is identified. Right renal calculi as noted above. Other findings as noted above. Chest X-Ray 08/01/17 00:00 IMPRESSION: Low lung volumes. No acute findings. Assessment & Plan - Diagnosis (1) Atrial fibrillation with RVR Is this a current diagnosis for this admission?: Yes (2) Complicated UTI (urinary tract infection) Is this a current diagnosis for this admission?: Yes (3) CAD (coronary artery disease) Qualifiers: Coronary Disease-Associated Artery/Lesion type: [place] artery [place] vs. transplanted heart: [place] heart Associated angina: without angina Qualified Code(s): I25.10 - Atherosclerotic heart disease of [place] coronary artery without angina pectoris Is this a current diagnosis for this admission?: Yes (4) COPD (chronic obstructive pulmonary disease) Qualifiers: COPD type: unspecified COPD Qualified Code(s): J44.9 - Chronic obstructive pulmonary disease, unspecified Is this a current diagnosis for this admission?: Yes (5) Hypotension (arterial) Qualifiers: Hypotension type: unspecified hypotension type Qualified Code(s): I95.9 - Hypotension, unspecified Is this a current diagnosis for this admission?: Yes - Notes Notes: 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 Patient not being offered surgery for renal stone. Also patient has remained stable for the last several days from cardiac standpoint. After discussion with hospitalist Jennifer Richardson , have decided to sign off. Please reconsult. Should patient have recurrent atrial fibrillation, consider increasing dofetilide to 375 mg p.o. twice daily however would need EKGs daily 3 if that is done. This is to monitor QTC. Chest x-ray from yesterday reviewed. Shows borderline cardiomegaly. Mild pulmonary venous congestion noted but it is due to body habitus. No CHF noted by my review. Dr. Monae to see the patient. Atrial fibrillation with rapid ventricular response: Patient maintaining sinus rhythm. Continue Cardizem at low-dose. Continue antiarrhythmic therapy with dofetilide. Hypotension: Blood pressure seems reasonably stable. Continue patient on Cardizem CD 120 mg p.o. daily. Coronary artery disease: Symptomatically stable. EKGs did not show any acute ischemia. COPD: Continue current therapy. Complicated UTI with possible urosepsis: Continue broad-spectrum antibiotics. Obesity: Patient has significant obesity. Currently is stable. - Time Time with patient: 15-25 minutes Medications reviewed and adjusted accordingly: Yes
[2017-08-04] MEDS: LANSOPRAZOLE 30 MG TAB.RAP.DR PO SCH (06:39)
[2017-08-04] MEDS: LEVOTHYROXINE SODIUM 0.05 MG TABLET PO SCH (06:39)
[2017-08-04] MEDS: HEPARIN SOD (PORCINE) 5,000 UNIT/ML 1 ML SYRINGE SUBCUT SCH ×2 (06:39→14:38)
[2017-08-04 06:59] LABS: HEMATOCRIT 32.7 % (36.0-47.0); MEAN CORPUSCULAR HEMOGLOBIN 32.7 pg (27.0-33.4); MEAN CORPUSCULAR HGB CONC 33.7 g/dL (32.0-36.0); MEAN CORPUSCULAR VOLUME 97 fl (80-97); PLATELET COUNT 392 10^3/uL (150-450); RED BLOOD COUNT 3.37 10^6/uL (3.72-5.28); RED CELL DISTRIBUTION WIDTH 15.1 % (11.5-14.0); WHITE BLOOD COUNT 9.3 10^3/uL (4.0-10.5)
[2017-08-04 07:13] LABS: ANION GAP 5 (5-19); BLOOD UREA NITROGEN 12 mg/dL (7-20); CALCIUM 9.8 mg/dL (8.4-10.2); CARBON DIOXIDE 36 mmol/L (22-30); CHLORIDE 104 mmol/L (98-107); GLUCOSE 126 mg/dL (75-110); POTASSIUM 3.7 mmol/L (3.6-5.0); SODIUM 144.8 mmol/L (137-145)
--- NOTE | 2017-08-04 08:24 | PDOC PROGRESS REPORT ---
Subjective Progress Note for:: 08/04/17 Subjective:: i feel much better Reason For Visit: ACUTE KIDNEY INJURY, COMPLICATED UTI Physical Exam Vital Signs: Temp Pulse Resp BP Pulse Ox 98.9 F 76 19 134/53 H 99 08/04/17 03:57 08/04/17 03:57 08/04/17 03:57 08/04/17 03:57 08/04/17 03:57 Pulse Oximeter Nocturnal Start: 08/02/17 09: 28 Freq: Q12H Status: Complete Document 08/03/17 05:23 EST (Rec: 08/03/17 06:37 EST [id number]) Nocturnal Pulse Oximetry Equipment Usage Equipment Discontinued Oxygen Delivery Method (includes room Nasal Cannula air) O2 Sat by Pulse Oximetry (92-100) 96 Continuous Pulse Oximeter Set Up No Continuous SpO2 Discontinued Yes Continuous SpO2 Machine # 11 Intake & Output 08/03/17 08/04/17 08/05/17 06:59 06:59 06:59 Intake Total 2144 1566 Output Total 2250 Balance -106 1566 Weight 142.2 kg General appearance: PRESENT: no acute distress, disheveled. ABSENT: cooperative Head exam: PRESENT: atraumatic, normocephalic Eye exam: PRESENT: conjunctiva pale. ABSENT: nystagmus, periorbital swelling, scleral icterus Mouth exam: PRESENT: dry mucosa, neck supple, tongue midline, other - ET Neck exam: ABSENT: carotid bruit, JVD, lymphadenopathy, thyromegaly, tracheal deviation, tracheostomy Respiratory exam: PRESENT: decreased breath sounds, prolonged expiratory phas, rhonchi Cardiovascular exam: PRESENT: RRR, +S1, +S2 Pulses: PRESENT: normal radial pulses GI/Abdominal exam: PRESENT: diminished bowel sounds, soft Extremities exam: PRESENT: +1 edema. ABSENT: clubbing Musculoskeletal exam: ABSENT: ambulatory, deformity, dislocation Neurological exam: ABSENT: awake, oriented to person, oriented to place Skin exam: PRESENT: dry, warm Results Laboratory Results: 08/04/17 06:03 08/04/17 06:03 08/04/17 08/04/17 06:03 06:03 WBC 9.3 RBC 3.37 L Hgb 11.0 L Hct 32.7 L MCV 97 MCH 32.7 MCHC 33.7 RDW 15.1 H Plt Count 392 Sodium 144.8 Potassium 3.7 Chloride 104 Carbon Dioxide 36 H Anion Gap 5 BUN 12 Creatinine 0.67 Est GFR ( Amer) > 60 Est GFR (Non-Af Amer) > 60 Glucose 126 H Calcium 9.8 08/01/17 08/02/17 04:06 06:13 NT-Pro-B Natriuret Pep 455 H 276 Impressions: Chest/Abdomen CTA 07/26/17 21:03 IMPRESSION: Scattered areas of subsegmental atelectasis are present in both lung bases. No dense consolidation or pleural effusion.No emboli visualized in the main pulmonary arteries or the segmental branches. Pneumobilia. Abdomen/Pelvis CT 08/01/17 00:00 IMPRESSION: No evidence for a renal or perirenal abscess collection is identified. Right renal calculi as noted above. Other findings as noted above. Chest X-Ray 08/01/17 00:00 IMPRESSION: Low lung volumes. No acute findings. Assessment & Plan - Diagnosis (1) Complicated UTI (urinary tract infection) Is this a current diagnosis for this admission?: Yes Plan: 07/28/17 06:45 Blood Culture - Final Blood Proteus Mirabilis 07/28/17 06:12 Blood Culture - Final Blood NO GROWTH IN 5 DAYS 07/27/17 04:05 Blood Culture - Final Blood Proteus Mirabilis 07/27/17 03:55 Blood Culture - Final Blood Proteus Mirabilis 07/26/17 22:37 Urine Culture - Final Catheterized Urine Proteus Mirabilis 07/26/17 21:00 Blood Culture - Final Blood Proteus Mirabilis 07/26/17 19:45 Blood Culture - Final Blood Proteus Mirabilis (2) Morbid obesity Is this a current diagnosis for this admission?: Yes (3) Sepsis Is this a current diagnosis for this admission?: Yes Plan: Proteus Mirabilis improved (4) UTI (urinary tract infection) Qualifiers: Urinary tract infection type: site unspecified Hematuria presence: without hematuria Qualified Code(s): N39.0 - Urinary tract infection, site not specified Is this a current diagnosis for this admission?: Yes Plan: suggest repeat ua (5) Obesity hypoventilation syndrome Is this a current diagnosis for this admission?: Yes Plan: attempt to qualify home bipap - Time Total Critical Time (Minutes): 40
[2017-08-04] MEDS: ASPIRIN 81 MG TABLET, ENT COATED PO SCH (10:20)
[2017-08-04] MEDS: GABAPENTIN 300 MG CAPSULE PO SCH (10:20)
[2017-08-04] MEDS: ANASTROZOLE 1 MG TABLET PO SCH (10:21)
[2017-08-04] MEDS: DOFETILIDE 125 MCG CAPSULE PO SCH (10:21)
[2017-08-04] MEDS: BUDESONIDE/FORMOTEROL 160-4.5 MCG 60 PUFF/6 GM MDI IH SCH (10:23)
[2017-08-04] MEDS: TIOTROPIUM BROMIDE DPI 5 CAP/KIT (18 MCG/CAP) IH SCH (10:27)
[2017-08-04] MEDS: LATANOPROST 0.005% OPH SOLN 2.5 ML OU SCH (10:27)
--- NOTE | 2017-08-04 13:41 | ST Inp Modified Barium Swallow ---
Inpatient MBS - General Date: 08/04/17 Date of Onset: 05/25/17 - approximately 2 months ago - History History Obtained From: Patient, Other - EMR -: Medical - Stat MBSS ordered. Medical history significant for hypertension, hyperlipidemia, morbid obesity, COPD, diabetes, atrial fibrillation admitted 07/27 for sepsis secondary to UTI with acute kidney injury. Diagnoses at last progress note indicate sepsis, urinary tract infection, acute metabolic encephalopathy, a-fib, COPD, diabetes, obesity hypoventilation syndrome, morbid obesity, acute renal failure. Discharge planning notes indicate discharge to [facility] (SNF). Patient reports she feels a sticking sensation with solids, particularly chicken, when she is eating. Reports is scary when it occurs and lasts longer than something going down the wrong way and takes a while. Patient indicates sticking sensation is mid-sternum. Reports during this period she has difficulty breathing. She reports it has been occurring for about 2 months. Reports sudden onset and no increase in severity. Patient reports occurs 2-3 times a week. Patient reports had endoscopy in last 2 months and it was recommended that she have swallow study with speech therapy. Patient also reports hoarseness - reports started in her 30's. She reports chronic cough, coughs a lot at night, sleeping in a recliner since 2001. Medications: Medications Reviewed Allergies: Refer to medical record - Subjective Current Nutritional Means: PO Current PO Diet: Regular Current Symptoms: c/o Globus sensation Pain: 0/5 - Objective Assessment: Upright, Left Lateral - Food Trials Food Trials Used: Thin liquids, Pureed, Regular - Assessment Labial Function: Within Normal Limits Lingual Function: Within Normal Limits Mandibular Function: Within Normal Limits Velo-Pharyngeal Function: Not assessed Laryngeal Function: hoarse - Pharyngeal Stage Initiation of Pharyngeal Stage: Normal Decreased Laryngeal Elevation: No Reduced Velo-Pharyngeal Closure: no Reduced Pressure Generation: No Reduced Tongue Base Retraction: No Pre-Swallowing Pooling in Valleculae: None Pre-Swallowing Pooling in Pyriforms: None Reduced Thyro-Hyiod Approximation: No Reduced Epiglottic Excursion: No Reduced Pharyngeal Peristalsis: No Post Swallow Residuals in Valleculae: None - to trace; judged to be WNL for study. Cleared with liquid wash. Post Swallow Residuals in Pyriforms: None - Esophageal Stage Esophageal Stage Comments: unable to visualize - Impression/Summary Laryngeal Penetration: No Tracheal Aspiration: no Patient Presents With: Normal swallow at eval Risk of Aspiration: Minimal Risk of Nutritional Compromise: Mild - due to reported fear of eating consistencies such as chicken - Recommendations Solid Diet Recommendations: Regular Liquid Diet Recommendations: Thin Regular Diet: Yes Recommended Techniques: Alternate Bites/Sips - Patient may want to alternate bites & sips for comfort Supervision: Independent Other Recommendations: 1. Continue current diet. Patient may want to alternate bites & sips for comfort. 2. Recommend follow up with GI. 3. No skilled speech therapy is necessary. 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 However also explained limitations in viewing esophagal symptoms. - Time Total Time: 20 Total Timed Minutes: 0
--- NOTE | 2017-08-04 13:55 | RADIOLOGY REPORT (SQ) ---
EXAM DESCRIPTION: CAMRON SWALLOW COMPLETED DATE/TIME: 08/04/2017 1:42 pm REASON FOR STUDY: dysphagia unspecified R 13.10 COMPARISON: None. TECHNIQUE: Videofluoroscopic swallowing examination was performed in conjunction with speech patholo gy. Videofluoroscopic imaging was obtained and reviewed and these are the findings: RADIATION DOSE: Total fluoroscopy time: 0.6 minutes 1 fluoroscopy image saved to PACS. LIMITATIONS: None FINDINGS: The patient was brought into the fluoro room and placed upright on a modified barium swall ow chair. The patient was then given multiple consistencies mixed with barium to swallow under live fluoroscopic video guidance. According to the Speech Pathologist there was no laryngeal penetration and no tracheal aspiration. Normal oral and pharyngeal transit time observed. No significant post s wallow residual was seen. Please see speech pathology report for further details and recommendations . IMPRESSION: NO EVIDENCE OF LARYNGEAL PENETRATION OR TRACHEAL ASPIRATION.PLEASE SEE SPEECH PATHOLOGIS T REPORT FOR OTHER FINDINGS AND RECOMMENDATIONS. COMMENT: Quality ID [id number]: Final reports for procedures using fluoroscopy that document radiation exp osure indices, or exposure time and number of fluorographic images (if radiation exposure indices are not available) TECHNICAL DOCUMENTATION: JOB ID: [id number] [employer]- All Rights Reserved Reading location - IP/workstation name: [facility]
--- NOTE | 2017-08-04 14:51 | PDOC TRANSFER SUMMARY ---
General - Admit/Disc Date/PCP Admission Date/Primary Care Provider: 07/27/17 01:07 DARRIN MELENDEZ MD Discharge Date: 08/04/17 - Discharge Diagnosis (1) Sepsis Is this a current diagnosis for this admission?: Yes Summary: Resolved; leukocytosis, elevated lactate, tachycardia, tachypnea and fever have resolved. The patient has been afebrile for >36 hours. Blood and urine cultures positive for Proteus mirabilis with similar resistance patterns; resistant to nitrofurantoin and tetracycline. Repeat Blood cultures have no growth at 48 hours. Repeat urine culture preliminary; no reportable results. She received 7 days of IV Levaquin. (2) UTI (urinary tract infection) Is this a current diagnosis for this admission?: Yes Summary: The patient endorses a recent history of urinary incontinence and frequent UTIs. She is followed by Dr. Gonzalez (urologist). She is noted to have poor perineal hygiene; currently providing nystatin for giovani to skinfolds. Blood and urine cultures as above. Abdominal and pelvic CT revealed 8 mm nonobstructing stone in the right renal pelvis. Repeat urinalysis following 7 days of IV Levaquin is negative for UTI. Urology was consulted; they recommend close observation for indications of obstruction as she may require J stent. (3) Acute metabolic encephalopathy Is this a current diagnosis for this admission?: Yes Summary: Resolved; likely multifactorial secondary to medication sedation, respiratory acidosis with hypercapnia, infectious process. The patient is now alert and oriented to her baseline. Strongly recommend narcotics/benzodiazepine avoidance. (4) A-fib Is this a current diagnosis for this admission?: Yes Summary: The patient endorses a history of chronic atrial fibrillation. Now sinus rhythm per telemetry. The patient did experience an episode of sustained A. fib on 07/28/17 for which she was briefly placed on digoxin by cardiology. This has has since been discontinued. She has subsequently remained in a sinus rhythm on her home dosed Tikosyn with the addition of diltiazem. Continue daily aspirin; the patient does not declines chronic anticoagulation (5) COPD (chronic obstructive pulmonary disease) Is this a current diagnosis for this admission?: Yes Summary: The patient endorses a history of COPD; prior to admission she was not home O2 dependent. ABGs demonstrated compensated respiratory acidosis with hypercapnia; repeat demonstrate chronic hypercapnia. CXR shows low lung volumes but otherwise no acute cardiopulmonary processes. The patient continues to require supplemental oxygen at 2 L/min with activities and BiPAP nightly (21%, 03/01). Continue her home dose inhalers, Spiriva and Symbicort. The patient's established feeder associate, Dr. Monae, was been consulted. Follow-up in his office as scheduled. (6) Diabetes Is this a current diagnosis for this admission?: Yes Summary: The patient's metformin was held while she was inpatient and her blood glucose was controlled with Humalog for sliding scale coverage. Patient to resume metformin and consistent carb diet upon discharge. (7) Obesity hypoventilation syndrome Is this a current diagnosis for this admission?: Yes Summary: BiPAP nightly. Recommend follow-up with Dr. Monae as scheduled. (8) Morbid obesity Is this a current diagnosis for this admission?: Yes Summary: The patient's morbid obesity is a complicating factor; it likely contributed to her urinary tract infection by reducing her mobility and perineal hygiene. Further, the patient has developed respiratory acidosis and is noted to have a diagnosis of obesity hypoventilation syndrome in her historical medical records. Her obesity will certainly prolong her recovery. Dietary discretion is advised. (9) ARF (acute renal failure) Is this a current diagnosis for this admission?: Yes Summary: Resolved; prerenal in nature secondary to sepsis and dehydration. The patient is now at her baseline creatinine of 0.67. - Additional Information Resuscitation Status: Full Code Discharge Diet: Cardiac, Diabetic Discharge Activity: Activity As Tolerated, Balance Activity w/Rest, Slowly Increase Activity, Weigh Daily Prescriptions: Diltiazem HCl [Cardizem Cd 120 mg Capsule] 120 mg PO QPM #30 cap.sr.24h Guaifenesin [Guaifenesin LA] 600 mg PO BID #30 tablet. Home Medications: Albuterol Sulfate [Proair HFA Inhalation Aerosol 8.5 gm MDI] 2 puff IH Q4HP PRN 07/27/17 Anastrozole [Arimidex] 1 mg PO DAILY 07/27/17 Aspirin [Ecotrin 81 mg EC Tablet] 81 mg PO DAILY 07/27/17 Budesonide/Formoterol Fumarate [Symbicort 160-4.5 Mcg Inhaler] 2 puff IH Q12 06/11 Chlorpheniramine Maleate [Allergy Relief 4 mg Tablet] 4 mg PO Q6HP PRN 07/27/17 Dofetilide [Tikosyn] 250 mcg PO Q12 07/27/17 Duloxetine HCl [Cymbalta] 60 mg PO Q12 07/27/17 Ergocalciferol (Vitamin D2) [Drisdol 50,000 unit (1.25MG) Capsule] 50,000 mg PO LIANG@1000 07/27/17 Gabapentin [Neurontin 300 mg Capsule] 300 mg PO Q12 07/27/17 Latanoprost [Xalatan 0.005% Oph Soln 2.5 ml] 1 drop OU DAILY 07/27/17 Levothyroxine Sodium [Synthroid] 125 mcg PO ACBRKFST 07/27/17 Metformin HCl [Metformin HCl ER] 500 mg PO WSUPPER 07/27/17 Pantoprazole Sodium [Protonix] 40 mg PO DAILY 07/27/17 Tiotropium Camino [Spiriva Handihaler 5 Cap/Kit (18 Mcg/Cap)] 1 puff IH DAILY 07/27/17 Tolterodine Tartrate [Tolterodine Tartrate ER] 4 mg PO DAILY 07/27/17 Diltiazem HCl [Cardizem Cd 120 mg Capsule] 120 mg PO QPM #30 cap.sr.24h Guaifenesin [Guaifenesin LA] 600 mg PO BID #30 tablet.sa 08/04/17 History of Present Illness Admission Date/PCP: 07/27/17 01:07 DARRIN MELENDEZ MD History of Present Illness: Per H&P by Dr. Santiago: LUIS A STEPHEN is a 82 year old female patient with multiple comorbidities including HTN, HLD, morbid obesity, COPD, diabetes mellitus and atrial fibrillation, presented with chief complaint of fever and shortness of breath. Patient reports this that she has been in her baseline state of up until Monday when she started to have generalized weakness , fever, abdominal pain and shortness of breath. Her initial workup shows urinalysis positive for nitrites and WBC 182. Her creatinine also mildly elevated which is 1.33. Chest x-ray is negative. Patient also noticed to have hypotension for which she got bolus of 2 L. Patient denies any chest pain, cough, or diarrhea. She did have nausea, vomiting and abdominal pain which resolved without intervention. Patient has underlying urinary incontinence but no dysuria. No orthopnea or paroxysmal nocturnal dyspnea. Hospital Course Hospital Course: The patient was admitted with sepsis secondary to urinary tract infection. Blood and urine cultures were positive for Proteus mirabilis. She received 7 days of IV Levaquin; subsequent blood cultures have no growth at 48 hours and urinalysis is negative for UTI. The patient's leukocytosis has resolved and she has been afebrile for greater than 36 hours. She is no longer tachycardic andand she is normotensive. The patient did develop atrial fibrillation which resolved following one dose of digoxin and initiation of diltiazem. The patient's primary feeder associate was consulted; he recommends continued BiPAP therapy upon discharge. The patient complained of dysphasia; modified barium swallow study is normal. At time of discharge, the patient is in stable condition, pain-free, maintaining oxygen saturations while on supplemental oxygen at 2 L/min. she is strongly encouraged to use BiPAP nightly and when sleeping during the day. She is also advised on the importance of continuing her incentive spirometry and flutter/PEEP device hourly while awake. She is discharged to the [facility]. She is provided prescriptions for diltiazem and guaifenesin. Recommend follow-up with primary care provider within 1 week. Recommend follow-up with Dr. Monae as scheduled. Recommend follow-up with accounts payable assistant as needed. Recommend follow-up with urologist within 4-6 weeks or sooner if demonstrating signs or symptoms of renal colic. Physical Exam Vital Signs: Temp Pulse Resp BP Pulse Ox 99.6 F 80 20 104/39 L 97 08/04/17 11:47 08/04/17 11:47 08/04/17 11:47 08/04/17 11:47 08/04/17 11:47 Pulse Oximeter Nocturnal Start: 08/02/17 09: 28 Freq: Q12H Status: Complete Document 08/03/17 05:23 EST (Rec: 08/03/17 06:37 EST [email or web address]) Nocturnal Pulse Oximetry Equipment Usage Equipment Discontinued Oxygen Delivery Method (includes room Nasal Cannula air) O2 Sat by Pulse Oximetry (92-100) 96 Continuous Pulse Oximeter Set Up No Continuous SpO2 Discontinued Yes Continuous SpO2 Machine # 11 Intake & Output 08/03/17 08/04/17 08/05/17 06:59 06:59 06:59 Intake Total 2144 1566 410 Output Total 2250 Balance -106 1566 410 Weight 142.2 kg General appearance: PRESENT: no acute distress, morbidly obese, well-developed, well-nourished. ABSENT: cooperative Head exam: PRESENT: atraumatic, normocephalic Eye exam: PRESENT: conjunctiva pink, EOMI, PERRLA. ABSENT: scleral icterus Ear exam: PRESENT: normal external ear exam Mouth exam: PRESENT: moist, tongue midline Neck exam: ABSENT: carotid bruit, JVD, lymphadenopathy, thyromegaly Respiratory exam: PRESENT: rhonchi, symmetrical, unlabored, other - Supplemental oxygen at 2 L/min. ABSENT: rales, wheezes Cardiovascular exam: PRESENT: RRR, +S1, +S2. ABSENT: diastolic murmur, rubs, systolic murmur Pulses: PRESENT: normal dorsalis pedis pul Vascular exam: PRESENT: normal capillary refill GI/Abdominal exam: PRESENT: normal bowel sounds, soft. ABSENT: distended, guarding, mass, organolmegaly, rebound, tenderness Rectal exam: PRESENT: deferred Extremities exam: PRESENT: full ROM. ABSENT: calf tenderness, clubbing, pedal edema Neurological exam: PRESENT: alert, awake, oriented to person, oriented to place , oriented to time, oriented to situation, CN II-XII grossly intact. ABSENT: motor sensory deficit Psychiatric exam: PRESENT: anxious, appropriate affect, normal mood. ABSENT: homicidal ideation, suicidal ideation Skin exam: PRESENT: dry, intact, warm. ABSENT: cyanosis, rash Results Laboratory Results: 08/04/17 06:03 08/04/17 06:03 08/04/17 08/04/17 06:03 06:03 WBC 9.3 RBC 3.37 L Hgb 11.0 L Hct 32.7 L MCV 97 MCH 32.7 MCHC 33.7 RDW 15.1 H Plt Count 392 Sodium 144.8 Potassium 3.7 Chloride 104 Carbon Dioxide 36 H Anion Gap 5 BUN 12 Creatinine 0.67 Est GFR ( Amer) > 60 Est GFR (Non-Af Amer) > 60 Glucose 126 H Calcium 9.8 08/01/17 08/02/17 04:06 06:13 NT-Pro-B Natriuret Pep 455 H 276 Impressions: Chest/Abdomen CTA 07/26/17 21:03 IMPRESSION: Scattered areas of subsegmental atelectasis are present in both lung bases. No dense consolidation or pleural effusion.No emboli visualized in the main pulmonary arteries or the segmental branches. Pneumobilia. Abdomen/Pelvis CT 08/01/17 00:00 IMPRESSION: No evidence for a renal or perirenal abscess collection is identified. Right renal calculi as noted above. Other findings as noted above. Chest X-Ray 08/01/17 00:00 IMPRESSION: Low lung volumes. No acute findings. Modified Barium Swallow 08/04/17 00:00 IMPRESSION: NO EVIDENCE OF LARYNGEAL PENETRATION OR TRACHEAL ASPIRATION.PLEASE SEE SPEECH PATHOLOGIST REPORT FOR OTHER FINDINGS AND RECOMMENDATIONS. Transfer Plan - Disposition Transfer Plan: The patient is being discharged to [place] [facility]. - Time Spent with Patient Time spent with patient: Less than 30 Minutes Qualifiers - * PATIENT BEING DISCHARGED WITH ANY OF THE FOLLOWING DIAGNOSIS: No Plan Discharge Plan: Discharge to [place] [facility]. Follow-up with primary care provider within 1 week of discharge from SNF. Follow-up with Dr. Monae (feeder associate) as scheduled. Follow-up with accounts payable assistant as needed. Time Spent: Less than 30 Minutes
[2017-08-04 17:15] VITALS: BP 113/49
[2017-08-04] MEDS: DILTIAZEM HCL 120 MG CAP.SR.24H PO SCH (17:44)
== END 2017-08-04 19:13 | DRG 871 ==
LOC: ER 19:38 → EH 07-27 01:07 → 2N 07-27 09:33 → 4N 07-28 09:17
PROVIDERS: ADMIT Internal Medicine; ATTEND Internal Medicine
PROC: 5A09557 Assistance with Respiratory Ventilation, Greater than 96 Consecutive Hours, Continuous Positive Airway Pressure (ICD-10-PCS; principal; 2017-07-29)
DX: A41.59 Other Gram-negative sepsis (principal); G93.41 Metabolic encephalopathy; N39.0 Urinary tract infection, site not specified; E66.2 Morbid (severe) obesity with alveolar hypoventilation; Z68.42 Body mass index [BMI] 45.0-49.9, adult; N17.9 Acute kidney failure, unspecified; E87.2 Acidosis; B96.4 Proteus (mirabilis) (morganii) as the cause of diseases classified elsewhere; B95.8 Unspecified staphylococcus as the cause of diseases classified elsewhere; I48.2 Chronic atrial fibrillation; E78.5 Hyperlipidemia, unspecified; E11.9 Type 2 diabetes mellitus without complications; I10 Essential (primary) hypertension; F32.9 Major depressive disorder, single episode, unspecified; E87.70 Fluid overload, unspecified; M54.5 Low back pain; J43.9 Emphysema, unspecified; R09.02 Hypoxemia; Z16.29 Resistance to other single specified antibiotic; Z79.82 Long term (current) use of aspirin; Z16.39 Resistance to other specified antimicrobial drug; E86.0 Dehydration; Z87.891 Personal history of nicotine dependence; Z79.51 Long term (current) use of inhaled steroids; Z87.440 Personal history of urinary (tract) infections; Z79.84 Long term (current) use of oral hypoglycemic drugs; Z88.0 Allergy status to penicillin; Z88.2 Allergy status to sulfonamides; Z79.899 Other long term (current) drug therapy; Z95.1 Presence of aortocoronary bypass graft; Z96.653 Presence of artificial knee joint, bilateral
CPT/HCPCS: 36415; 36600; 71045; 71275; 74177; 74230; 80048; 80053; 81001; 82550; 82553; 82803; 82962; 83605; 83735; 83880; 84100; 84484; 85025; 85027; 85379; 85610; 87040; 87077; 87086; 87088; 87186; 93005; 93010; 93306; 94010; 94660; 94667; 94762; 94799; 96361; 96365; 99285; G8978-GP; G8979-GP; G8987-GO; G8988-GO; G8989-GO; J1160; J1644; J1815; J1885; J1940; J1956; J2270; J3475; J3490; J7030; J7120; J7620

== ENCOUNTER → 2017-12-26 | Outpatient (CLI) | payer MEDICARE, BC ==
--- NOTE | 2017-12-26 15:05 | RADIOLOGY REPORT (SQ) ---
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 TECHNIQUE: Post IV contrasted scanning from skull base through lung apices with review of bone, soft tissue and lung windows. Reconstructed coronal and sagittal MPR images reviewed. All images stored on PACS. All CT scanners at this facility use dose modulation, iterative reconstruction, and/or weight based d osing when appropriate to reduce radiation dose to as low as reasonably achievable (ALARA). [facility]: Dose Right [facility]: CareDose [facility]: Dose Right [facility]: Teradose 4D [facility]: [employer] CONTRAST TYPE AND DOSE: 80 mL IV Omnipaque 350- low osmolar. RENAL FUNCTION: GFR > 60. RADIATION DOSE: 23 mGy . LIMITATIONS: None. FINDINGS: SKULL BASE: Intact. MAJOR SALIVARY GLANDS: No solid or cystic masses. No inflammatory changes. LYMPHADENOPATHY: No adenopathy. MUCOSAL MASSES OR ASYMMETRY: No mucosal masses or asymmetry. Please note that both the right and lef t carotid bifurcations are in the prevertebral space, causing widening of the prevertebral space best shown on sagittal images 69 through 80. LARYNX/CORDS: No abnormal findings. VASCULAR STRUCTURES: The major vessels are patent. There is medial deviation of the right and left c arotid bifurcations into the prevertebral space. No flow significant stenosis of the carotid bifurca tions is identified on coronal images 63-69. LUNG APICES: Clear. BONES: Diffuse degenerative disc changes in the cervical spine without high-grade bony central stenos is. Bilateral foraminal narrowing at C4-5, C5-6, and C6-7. THYROID: Normal size. No masses. PARANASAL SINUSES: Clear. OTHER: No other significant finding. IMPRESSION: No focal tumor in the neck soft tissues is identified. 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
--- NOTE | 2017-12-26 15:25 | RADIOLOGY REPORT (SQ) ---
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 Images reviewed with lung, soft tissue and bone windows. Reconstructed coronal and sagittal MPR and MIP images reviewed. All images stored on PACS. All CT scanners at this facility use dose modulation, iterative reconstruction, and/or weight based d osing when appropriate to reduce radiation dose to as low as reasonably achievable (ALARA). [facility]: Dose Right [facility]: CareDose [facility]: Dose Right [facility]: Teradose 4D [facility]: [place] CONTRAST TYPE AND DOSE: contrast/concentration: Isovue 350.00 mg/ml; Total Contrast Delivered: 80.0 ml; Total Saline Delivered: 55.0 ml RENAL FUNCTION: GFR > 60. RADIATION DOSE: 17 mGy . LIMITATIONS: None. FINDINGS: LUNGS AND PLEURA: No opacities, nodules, masses. No pneumothorax. No effusions. HILAR AND MEDIASTINAL STRUCTURES: No identified masses or abnormal nodes. HEART AND VASCULAR STRUCTURES: No aneurysm or dissection. No central pulmonary emboli. No pericardi al effusion. Old sternotomy for CABG with very heavily calcified [place] coronary arteries. Calcifie d mitral annulus HARDWARE: Old sternotomy for CABG UPPER ABDOMEN: No significant findings. Limited exam. THYROID AND OTHER SOFT TISSUES: No masses. No adenopathy. BONES: Diffuse degenerative changes thoracic spine OTHER: No other significant finding. IMPRESSION: NORMAL CT OF THE CHEST FOR AGE, WITH IV CONTRAST. TECHNICAL DOCUMENTATION: JOB ID: [id number] Quality ID # [id number]: Final reports with documentation of one or more dose reduction techniques (e.g., Au tomated exposure control, adjustment of the mA and/or kV according to patient size, use of iterative reconstruction technique) 2010 [employer]- All Rights Reserved Reading location - IP/workstation name: [facility]
== END ==
LOC: RAD 14:02
PROVIDERS: ATTEND Internal Medicine Gastroenterology
DX: D17.4 Benign lipomatous neoplasm of intrathoracic organs (principal); R13.14 Dysphagia, pharyngoesophageal phase; M48.02 Spinal stenosis, cervical region
CPT/HCPCS: 70491; 71260; 82565

== ENCOUNTER 2018-01-19 15:35 | Inpatient (IN) | payer MEDICARE, BC ==
--- NOTE | 2018-01-19 16:07 | ER Document Report ---
ED Medical Screen (RME) - General Chief Complaint: Abdominal Pain Stated Complaint: ABDOMINAL PAIN Time Seen by Provider: 01/19/18 16:04 Mode of Arrival: Wheelchair Information source: Patient Notes: This is an 82-year-old female with a history of sepsis with UTI who presents to the emergency room with fever, chills, back pain. Patient states her symptoms are similar to when she had sepsis this past spring. TRAVEL OUTSIDE OF THE [place] IN LAST 30 DAYS: No - Related Data Allergies/Adverse Reactions: Penicillins Allergy (Unknown, Verified 07/28/17 13:35) Generalized rash Sulfa (Sulfonamide Antibiotics) Allergy (Unknown, Verified 07/28/17 13:35) Generalized rash Past Medical History - Past Medical History Cardiac Medical History: Reports: Hx Atrial Fibrillation, Hx Hypercholesterolemia, Hx Hypertension Endocrine Medical History: Reports: Hx Diabetes Mellitus Type 2 Renal/ Medical History: Denies: Hx Peritoneal Dialysis Psychiatric Medical History: Reports: Hx Depression Past Surgical History: Reports: Hx Section - Immunizations Hx Diphtheria, Pertussis, Tetanus Vaccination: Yes Physical Exam - Vital signs Vitals: Temp Pulse Resp BP Pulse Ox 99.8 F 118 H 28 H 120/58 L 96 01/19/18 15:45 01/19/18 15:45 01/19/18 15:45 01/19/18 15:45 01/19/18 15:45 Course - Vital Signs Vital signs: Temp Pulse Resp BP Pulse Ox 99.8 F 118 H 28 H 120/58 L 96 01/19/18 15:45 01/19/18 15:45 01/19/18 15:45 01/19/18 15:45 01/19/18 15:45 Doctor's Discharge - Discharge Referrals: KG KNOTT MD [Primary Care Provider] - Follow up as needed
[2018-01-19 16:47] LABS: HEMATOCRIT 39.5 % (36.0-47.0); HEMOGLOBIN 13.7 g/dL (12.0-15.5); MEAN CORPUSCULAR HEMOGLOBIN 33.6 pg (27.0-33.4); MEAN CORPUSCULAR HGB CONC 34.8 g/dL (32.0-36.0); MEAN CORPUSCULAR VOLUME 97 fl (80-97); PLATELET COUNT 290 10^3/uL (150-450); RED CELL DISTRIBUTION WIDTH 14.9 % (11.5-14.0); WHITE BLOOD COUNT 9.7 10^3/uL (4.0-10.5)
[2018-01-19 17:26] LABS: ABSOLUTE MONOCYTES # (MANUAL) 0.1 10^3/uL (0.1-1.4); ABSOLUTE NEUTROPHILS# (MANUAL) 9.6 10^3/uL (1.7-8.2); BAND NEUTROPHILS % (MANUAL) 9 % (3-5); BASOPHILS % (MANUAL) 0 % (0-2); EOSINOPHILS % (MANUAL) 0 % (0-6); LYMPHOCYTES % (MANUAL) 0 % (13-45); MONOCYTES % (MANUAL) 1 % (3-13); PLATELET COMMENT ADEQUATE; POLYCHROMASIA SLIGHT; SEGMENTED NEUTROPHILS % (MAN) 90 % (42-78); STOMATOCYTES SLIGHT; TOTAL CELLS COUNTED 100; TOXIC GRANULATION 1+; TOXIC VACUOLATION PRESENT
--- NOTE | 2018-01-19 17:36 | RADIOLOGY REPORT (SQ) ---
EXAM DESCRIPTION: CHEST SINGLE VIEW COMPLETED DATE/TIME: 01/19/2018 5:21 pm REASON FOR STUDY: fever, chills, back pain COMPARISON: None. EXAM PARAMETERS: NUMBER OF VIEWS: One view. TECHNIQUE: Single frontal radiographic view of the chest acquired. RADIATION DOSE: NA LIMITATIONS: None. FINDINGS: LUNGS AND PLEURA: No opacities, masses or pneumothorax. No pleural effusion. MEDIASTINUM AND HILAR STRUCTURES: No masses. Contour normal. HEART AND VASCULAR STRUCTURES: Heart normal in size. Normal vasculature. BONES: No acute findings. HARDWARE: CABG. OTHER: No other significant finding. IMPRESSION: NO ACUTE RADIOGRAPHIC FINDING IN THE CHEST. TECHNICAL DOCUMENTATION: JOB ID: [id number] [employer]- All Rights Reserved Reading location - IP/workstation name: [email or web address]
[2018-01-19 18:21] LABS: ALANINE AMINOTRANSFERASE 18 U/L (9-52); ALBUMIN 4.2 g/dL (3.5-5.0); ALKALINE PHOSPHATASE 105 U/L (38-126); ANION GAP 16 (5-19); ASPARTATE AMINO TRANSFERASE 31 U/L (14-36); BILIRUBIN,DIRECT 0.3 mg/dL (0.0-0.4); BILIRUBIN,TOTAL 0.9 mg/dL (0.2-1.3); BLOOD UREA NITROGEN 15 mg/dL (7-20); CALCIUM 9.9 mg/dL (8.4-10.2); CARBON DIOXIDE 18 mmol/L (22-30); CHLORIDE 105 mmol/L (98-107); GLUCOSE 164 mg/dL (75-110); POTASSIUM 4.7 mmol/L (3.6-5.0); SODIUM 138.7 mmol/L (137-145); TOTAL PROTEIN 7.7 g/dL (6.3-8.2)
[2018-01-19] MEDS ORDERED: RINGERS SOLUTION,LACTATED 1,000 ML IV ONE (18:42)
[2018-01-19] MEDS ORDERED: CEFTRIAXONE INJ 1000 MG VIAL IV ONE (18:44)
[2018-01-19] MEDS ORDERED: CEFTRIAXONE 1 GM/D5W RTU 1 GM/50 ML RTUPB IV ONE (18:56)
--- NOTE | 2018-01-19 19:38 | ER Document Report ---
ED General - General Chief Complaint: Abdominal Pain Stated Complaint: ABDOMINAL PAIN Time Seen by Provider: 01/19/18 16:04 Mode of Arrival: Wheelchair Notes: Patient is an 82-year-old female with a past medical history of morbid obesity, diabetes, hypertension, who presents with 2 days of intermittent shivers, feeling chilled, dysuria and urinary hesitancy. She states that this feels similar to when she was hospitalized in July with sepsis for a total of 9 days due to pyelonephritis. She states that she has felt nauseated but has not vomited. She denies flank pain. She states she took Tylenol at home with some improvement of her symptoms. Nothing worsens her symptoms. She has not seen her general doctor regarding today's concerns. She denies cough, sputum production, chest pain, headache or neck pain. TRAVEL OUTSIDE OF THE [place] IN LAST 30 DAYS: No - Related Data Allergies/Adverse Reactions: Penicillins Allergy (Unknown, Verified 01/19/18 19:00) Generalized rash Sulfa (Sulfonamide Antibiotics) Allergy (Unknown, Verified 01/19/18 19:00) Generalized rash clarithromycin [From Biaxin] Allergy (Verified 01/19/18 19:00) codeine Allergy (Verified 01/19/18 19:00) Past Medical History - General Information source: Patient - Social History Smoking Status: Never Smoker Chew tobacco use (# tins/day): No Frequency of alcohol use: None Drug Abuse: None Lives with: Spouse/Significant other Family History: Reviewed & Not Pertinent Patient has suicidal ideation: No Patient has homicidal ideation: No - Past Medical History Cardiac Medical History: Reports: Hx Atrial Fibrillation, Hx Hypercholesterolemia, Hx Hypertension Endocrine Medical History: Reports: Hx Diabetes Mellitus Type 2 Renal/ Medical History: Denies: Hx Peritoneal Dialysis Psychiatric Medical History: Reports: Hx Depression Past Surgical History: Reports: Hx Section - Immunizations Hx Diphtheria, Pertussis, Tetanus Vaccination: Yes Review of Systems - Review of Systems Notes: Constitutional: Positive for fever. HENT: Negative for sore throat. Eyes: Negative for visual changes. Cardiovascular: Negative for chest pain. Respiratory: Negative for shortness of breath. Gastrointestinal: Positive for abdominal cramping, positive for nausea Genitourinary: Positive for dysuria. Musculoskeletal: Negative for back pain. Skin: Negative for rash. Neurological: Negative for headaches, weakness or numbness. 10 point ROS negative except as marked above and in HPI. Physical Exam - Vital signs Vitals: Temp Pulse Resp BP Pulse Ox 99.8 F 118 H 28 H 120/58 L 96 01/19/18 15:45 01/19/18 15:45 01/19/18 15:45 01/19/18 15:45 01/19/18 15:45 Interpretation: Tachycardic, Tachypneic Notes: PHYSICAL EXAMINATION: GENERAL: Well-appearing, well-nourished and in no acute distress. HEAD: Atraumatic, normocephalic. EYES: Pupils equal round and reactive to light, extraocular movements intact, sclera anicteric, conjunctiva are normal. ENT: nares patent, oropharynx clear without exudates. Moderately dry mucous membranes. NECK: Normal range of motion, supple without lymphadenopathy LUNGS: Breath sounds clear to auscultation bilaterally and equal. No wheezes rales or rhonchi. HEART: Regular tachycardia without murmurs ABDOMEN: Soft, nontender, normoactive bowel sounds. No guarding, no rebound. No masses appreciated. EXTREMITIES: no pitting or edema. No cyanosis. NEUROLOGICAL: No focal neurological deficits. Moves all extremities spontaneously and on command. PSYCH: Normal mood, normal affect. SKIN: Warm, Dry, normal turgor, no rashes or lesions noted. Course - Re-evaluation Re-evalutation: 01/19/18 19:38 Patient presents with findings consistent with acute sepsis, lactate of 4.8, tachycardic, bandemia of 9% with dysuria and symptoms similar to when she had pyonephritis in the past. Patient is otherwise nontoxic in appearance. Notably tachycardic on assessment. Review of previous micro biology results show that the patient has had Proteus infections in the past that have been pansensitive. She has been started on ceftriaxone and IV fluids. Awaiting urinalysis results. Will discuss with hospitalist for admission given her elevated lactate, bandemia, advanced age and tachycardia 01/19/18 20:07 Urinalysis is consistent with acute pyelonephritis. Patient's current heart rate somewhat improved currently at 94. Blood pressure 107 and 55. She continues to be awake, alert, oriented. I discussed with the hospitalist Dr. Perkins who is excepted the patient for admission. - Vital Signs Vital signs: Temp Pulse Resp BP Pulse Ox 99.8 F 118 H 19 113/72 91 L 01/19/18 15:45 01/19/18 15:45 01/19/18 19:01 01/19/18 19:01 01/19/18 19:01 - Laboratory Result Diagrams: 01/19/18 16:28 01/19/18 18:00 Laboratory results interpreted by me: 01/19/18 01/19/18 01/19/18 16:28 16:28 18:00 MCH 33.6 H RDW 14.9 H Seg Neuts % (Manual) 90 H Band Neutrophils % 9 H Lymphocytes % (Manual) 0 L Monocytes % (Manual) 1 L Abs Neuts (Manual) 9.6 H Abs Lymphs (Manual) 0.0 L Carbon Dioxide 18 L Est GFR (Non-Af Amer) 51 L Glucose 164 H Lactic Acid 4.2 H Urine Protein Urine Blood Urine Nitrite Ur Leukocyte Esterase 01/19/18 19:05 MCH RDW Seg Neuts % (Manual) Band Neutrophils % Lymphocytes % (Manual) Monocytes % (Manual) Abs Neuts (Manual) Abs Lymphs (Manual) Carbon Dioxide Est GFR (Non-Af Amer) Glucose Lactic Acid Urine Protein 30 H Urine Blood MODERATE H Urine Nitrite POSITIVE H Ur Leukocyte Esterase LARGE H Discharge - Discharge Clinical Impression: Morbid obesity, Lactic acidosis, Pyelonephritis Sepsis Qualifiers: Sepsis type: sepsis due to unspecified organism Qualified Code(s): A41.9 - Sepsis, unspecified organism Condition: Fair Disposition: ADMITTED INPATIENT Admitting Provider: Hospitalist Unit Admitted: IMCU Referrals: KG KNOTT MD [Primary Care Provider] - Follow up as needed
[2018-01-19 19:58] LABS: APPEARANCE,URINE CLOUDY; BILIRUBIN,URINE NEGATIVE (NEGATIVE); COLOR,URINE YELLOW; GLUCOSE, URINE NEGATIVE (NEGATIVE); KETONES,URINE NEGATIVE (NEGATIVE); LEUKOCYTE ESTERASE,URINE LARGE (NEGATIVE); NITRITE,URINE POSITIVE (NEGATIVE); PROTEIN,URINE 30 mg/dL (NEGATIVE); URINE SPECIFIC GRAVITY 1.015; UROBILINOGEN,URINE NEGATIVE mg/dL (<2.0)
[2018-01-19] MEDS ORDERED: ACETAMINOPHEN 325 MG TABLET PO ONE (20:11)
[2018-01-19] MEDS ORDERED: GLUCAGON,HUMAN RECOMB 1 MG INJ IM PRN (20:12)
[2018-01-19] MEDS ORDERED: MAG HYDROX/AL HYDROX/SIMETH SUSP 30 ML UDCUP PO PRN (20:12)
[2018-01-19] MEDS ORDERED: DEXTROSE 40% GEL 15 GM TUBE PO PRN ×2 (20:12)
[2018-01-19] MEDS ORDERED: IPRATROPIUM/ALBUTEROL 0.5-2.5 MG/3 ML AMPUL NEB PRN (20:12)
[2018-01-19] MEDS ORDERED: LEVALBUTEROL HCL NEB 1.25 MG/3 ML AMPUL NEB PRN (20:12)
[2018-01-19] MEDS ORDERED: DEXTROSE 50%-WATER 25 GM/50 ML DISP.SYRIN IV PRN ×2 (20:12)
[2018-01-19] MEDS ORDERED: ACETAMINOPHEN 325 MG TABLET PO PRN (20:12)
[2018-01-19] MEDS ORDERED: NORMAL SALINE 1000 ML 1,000 ML IV SCH (20:15)
[2018-01-19] MEDS ORDERED: CHLORPHENIRAMINE MALEATE 4 MG TABLET PO PRN (20:17)
[2018-01-19] MEDS ORDERED: DILTIAZEM HCL 60 MG TABLET PO ONE (20:45)
[2018-01-19] MEDS ORDERED: KETOROLAC TROMETHAMINE INJ/PF 30 MG/1 ML SDV IV PRN (20:46)
[2018-01-19] MEDS: CIPROFLOXACIN 400 MG/D5W RTU 400 MG/200 ML RTUPB IV SCH (21:08)
[2018-01-19] MEDS: DILTIAZEM HCL 120 MG CAP.SR.24H PO SCH (21:08)
[2018-01-19] MEDS: INSULIN LISPRO 100 UNIT/ML 3 ML VIAL SUBCUT PRN (21:09)
[2018-01-19] MEDS ORDERED: ALPRAZOLAM 0.5 MG TABLET PO PRN (22:20)
[2018-01-19] MEDS ORDERED: BISACODYL 5 MG TABEC PO PRN (22:20)
[2018-01-19] MEDS: HEPARIN SOD (PORCINE) 5,000 UNIT/ML 1 ML SYRINGE SUBCUT SCH (23:00)
[2018-01-19] MEDS: GABAPENTIN 300 MG CAPSULE PO SCH (23:00)
[2018-01-19] MEDS: DULOXETINE HCL 30 MG CAPSULE.DR PO SCH (23:00)
[2018-01-20] MEDS ORDERED: DIPHENHYDRAMINE HCL 25 MG CAPSULE PO ONE (01:30)
[2018-01-20] MEDS: BUDESONIDE/FORMOTEROL 160-4.5 MCG 60 PUFF/6 GM MDI IH SCH ×3 (04:45→22:09)
[2018-01-20 05:15] LABS: HEMATOCRIT 36.7 % (36.0-47.0); HEMOGLOBIN 12.7 g/dL (12.0-15.5); MEAN CORPUSCULAR HEMOGLOBIN 33.4 pg (27.0-33.4); MEAN CORPUSCULAR HGB CONC 34.5 g/dL (32.0-36.0); MEAN CORPUSCULAR VOLUME 97 fl (80-97); PLATELET COUNT 209 10^3/uL (150-450); RED CELL DISTRIBUTION WIDTH 14.5 % (11.5-14.0); WHITE BLOOD COUNT 17.1 10^3/uL (4.0-10.5)
[2018-01-20 05:33] LABS: ANION GAP 15 (5-19); BLOOD UREA NITROGEN 20 mg/dL (7-20); CALCIUM 9.5 mg/dL (8.4-10.2); CARBON DIOXIDE 21 mmol/L (22-30); CHLORIDE 102 mmol/L (98-107); GLUCOSE 195 mg/dL (75-110); POTASSIUM 4.8 mmol/L (3.6-5.0); SODIUM 138.1 mmol/L (137-145)
[2018-01-20 05:41] LABS: ABSOLUTE LYMPHOCYTES# (MANUAL) 0.7 10^3/uL (0.5-4.7); ABSOLUTE MONOCYTES # (MANUAL) 0.7 10^3/uL (0.1-1.4); ABSOLUTE NEUTROPHILS# (MANUAL) 15.7 10^3/uL (1.7-8.2); ANISOCYTOSIS SLIGHT; BAND NEUTROPHILS % (MANUAL) 10 % (3-5); BASOPHILS % (MANUAL) 0 % (0-2); EOSINOPHILS % (MANUAL) 0 % (0-6); LYMPHOCYTES % (MANUAL) 4 % (13-45); MONOCYTES % (MANUAL) 4 % (3-13); PLATELET COMMENT ADEQUATE; SEGMENTED NEUTROPHILS % (MAN) 82 % (42-78); TOTAL CELLS COUNTED 100; TOXIC VACUOLATION PRESENT
[2018-01-20] MEDS ORDERED: LEVOTHYROXINE SODIUM 0.025 MG TABLET PO SCH (06:00)
[2018-01-20] MEDS ORDERED: LEVOTHYROXINE SODIUM 0.1 MG TABLET PO SCH (06:00)
--- NOTE | 2018-01-20 06:07 | PDOC H&P ---
History of Present Illness Admission Date/PCP: 01/19/18 20:27 KG KNOTT MD Patient complains of: Abdominal pain, fever and chills History of Present Illness: LUIS A STEPHEN is a 82 year old female with an extensive past medical history of morbid obesity, obstructive sleep apnea, COPD with chronic hypercapnia, atrial fibrillation, diabetes, hypertension, opiate dependent chronic pain, anxiety, depression, suicide attempt by benzodiazepine and opiate overdose. Patient presents with 24 hours of fever and chills, abdominal pain and dysuria. Prompting evaluation in the emergency room she is found to have pyuria with sepsis. Patient admits several previous episodes. No recent antibiotic use. Patient is refusing BiPAP, requesting benzodiazepines and narcotics, unable to provide evidence of current prescriptions. Past Medical History Cardiac Medical History: Reports: Atrial Fibrillation, Hyperlipidema, Hypertension Pulmonary Medical History: Reports: Sleep Apnea Endocrine Medical History: Reports: Diabetes Mellitus Type 2, Obesity Renal/ Medical History: Reports: Nephrolithiasis Malignancy Medical History: Reports: None GI Medical History: Reports: None, Other - Chronic constipation Musculoskeltal Medical History: Reports: Arthritis, Other - Chronic back pain Psychiatric Medical History: Reports: Depression, General Anxiety Disorder Traumatic Medical History: Reports: None Hematology: Reports: None Denies: Sickle Cell Disease, Bleeding Tendencies Infectious Medical History: Reports: None Past Surgical History Past Surgical History: Reports: Section Social History Information Source: Patient, [facility]LY [facility] Records Lives with: Spouse/Significant other Smoking Status: Former Smoker Cigarettes Packs Per Day: 1 Number of Years Smokin Last Time Smoked: 1982 Frequency of Alcohol Use: Social Hx Recreational Drug Use: Yes Drugs: Marijuana Hx Prescription Drug Abuse: No - Advance Directive Resuscitation Status: Full Code Family History Family History: Reviewed & Not Pertinent Parental Family History Reviewed: Yes Children Family History Reviewed: Yes Sibling(s) Family History Reviewed.: Yes Medication/Allergy Home Medications: Albuterol Sulfate [Proair HFA Inhalation Aerosol 8.5 gm MDI] 2 puff IH Q4HP PRN 07/27/17 Anastrozole [Arimidex] 1 mg PO DAILY 07/27/17 Aspirin [Ecotrin 81 mg EC Tablet] 81 mg PO DAILY 07/27/17 Budesonide/Formoterol Fumarate [Symbicort 160-4.5 Mcg Inhaler] 2 puff IH Q12 06/11 Dofetilide [Tikosyn] 250 mcg PO Q12 07/27/17 Duloxetine HCl [Cymbalta] 60 mg PO Q12 07/27/17 Latanoprost [Xalatan 0.005% Oph Soln 2.5 ml] 1 drop OU DAILY 07/27/17 Levothyroxine Sodium [Synthroid] 125 mcg PO ACBRKFST 07/27/17 Metformin HCl [Metformin HCl ER] 500 mg PO WSUPPER 07/27/17 Pantoprazole Sodium [Protonix] 40 mg PO DAILY 07/27/17 Tiotropium [place] [Spiriva Handihaler 5 Cap/Kit (18 Mcg/Cap)] 1 puff IH DAILY 07/27/17 Alprazolam [Xanax 0.5 mg Tablet] 0.5 mg PO BIDP PRN 01/19/18 Bisacodyl [Dulcolax] 5 mg PO PRN PRN 01/19/18 Gabapentin [Neurontin 400 mg Capsule] 400 mg PO Q12 01/19/18 Metoprolol Succinate [Toprol Xl] 25 mg PO BID 01/19/18 Orphenadrine Citrate 100 mg PO BIDP PRN 01/19/18 Oxycodone HCl/Acetaminophen [Percocet 7.5-325 mg Tablet] 1 tab PO DAILYP PRN Polyethylene Glycol 3350 [Miralax Powder 17 gm/Packet] 1 packet PO DAILY Allergies/Adverse Reactions: Penicillins Allergy (Unknown, Verified 01/19/18 19:00) Generalized rash Sulfa (Sulfonamide Antibiotics) Allergy (Unknown, Verified 01/19/18 19:00) Generalized rash clarithromycin [From Biaxin] Allergy (Verified 01/19/18 19:00) codeine Allergy (Verified 01/19/18 19:00) Review of Systems ROS unobtainable: Due to mental status - [place] unreliable as patient is anxious and answers affirmatively to all questions Physical Exam Vital Signs: Temp Pulse Resp BP Pulse Ox 100.2 F 92 20 132/45 H 92 01/20/18 03:38 01/20/18 03:38 01/20/18 03:38 01/20/18 03:38 01/20/18 03:38 Intake & Output 01/18/18 01/19/18 01/20/18 11:59 11:59 11:59 Intake Total 200 Output Total 0 Balance 200 General appearance: PRESENT: cooperative, mild distress, morbidly obese. ABSENT : disheveled Head exam: PRESENT: atraumatic, normocephalic Eye exam: PRESENT: conjunctiva pink, EOMI, PERRLA. ABSENT: scleral icterus Ear exam: PRESENT: normal external ear exam Mouth exam: PRESENT: moist, tongue midline Neck exam: ABSENT: carotid bruit, JVD, lymphadenopathy, thyromegaly Respiratory exam: PRESENT: clear to auscultation britt. ABSENT: rales, rhonchi, wheezes Cardiovascular exam: PRESENT: irregular rhythm, RRR. ABSENT: diastolic murmur, rubs, systolic murmur Pulses: PRESENT: normal dorsalis pedis pul Vascular exam: PRESENT: normal capillary refill GI/Abdominal exam: PRESENT: normal bowel sounds, soft. ABSENT: distended, guarding, mass, organolmegaly, rebound, tenderness Rectal exam: PRESENT: deferred Extremities exam: PRESENT: full ROM. ABSENT: calf tenderness, clubbing, pedal edema Neurological exam: PRESENT: alert, awake, oriented to person, oriented to place , oriented to time, oriented to situation, CN II-XII grossly intact. ABSENT: motor sensory deficit Psychiatric exam: PRESENT: anxious Skin exam: PRESENT: dry, intact, warm. ABSENT: cyanosis, rash Results Laboratory Results: 01/20/18 03:58 01/20/18 03:58 01/19/18 01/19/18 01/20/18 21:00 21:00 03:58 WBC 17.1 H RBC 3.80 Hgb 12.7 Hct 36.7 MCV 97 MCH 33.4 MCHC 34.5 RDW 14.5 H Plt Count 209 Seg Neutrophils % Not Reportable Lymphocytes % Not Reportable Monocytes % Not Reportable Eosinophils % Not Reportable Basophils % Not Reportable Absolute Neutrophils Not Reportable Absolute Lymphocytes Not Reportable Absolute Monocytes Not Reportable Absolute Eosinophils Not Reportable Absolute Basophils Not Reportable Sodium Potassium Chloride Carbon Dioxide Anion Gap BUN Creatinine Est GFR ( Amer) Est GFR (Non-Af Amer) Glucose Lactic Acid 4.2 H Calcium TSH 6.35 H 01/20/18 03:58 WBC RBC Hgb Hct MCV MCH MCHC RDW Plt Count Seg Neutrophils % Lymphocytes % Monocytes % Eosinophils % Basophils % Absolute Neutrophils Absolute Lymphocytes Absolute Monocytes Absolute Eosinophils Absolute Basophils Sodium 138.1 Potassium 4.8 Chloride 102 Carbon Dioxide 21 L Anion Gap 15 BUN 20 Creatinine 1.24 Est GFR ( Amer) 50 L Est GFR (Non-Af Amer) 42 L Glucose 195 H Lactic Acid Calcium 9.5 TSH Impressions: Chest X-Ray 01/19/18 16:05 IMPRESSION: NO ACUTE RADIOGRAPHIC FINDING IN THE CHEST. Assessment & Plan - Diagnosis (1) Pyelonephritis Is this a current diagnosis for this admission?: Yes Plan: Empiric antibiotics initiated, IV fluid challenge, follow-up blood culture and CBC, given recurrence will likely require low-dose antibiotic chronically (2) Sepsis Qualifiers: Sepsis type: sepsis due to unspecified organism Qualified Code(s): A41.9 - Sepsis, unspecified organism Is this a current diagnosis for this admission?: Yes Plan: IV fluid challenge, follow-up lactic acid level, pressors as needed (3) A-fib Qualifiers: Atrial fibrillation type: chronic Qualified Code(s): I48.2 - Chronic atrial fibrillation Is this a current diagnosis for this admission?: Yes Plan: Diltiazem, avoid hypovolemia (4) COPD (chronic obstructive pulmonary disease) Qualifiers: COPD type: emphysema Emphysema type: centrilobular Qualified Code(s): J43.2 - Centrilobular emphysema Is this a current diagnosis for this admission?: Yes Plan: With hypercapnia, complicated by benzodiazepine and opiate seeking, flutter valve, supplemental oxygen Xopenex. (5) Morbid obesity Is this a current diagnosis for this admission?: Yes Plan: Morbid obesity will evaluate for metabolic cause with evaluation of thyroid function and dietitian consultation - Time Time Spent: Greater than 70 Minutes - Inpatient Certification Medical Necessity: Need Close Monitoring Due to Risk of Patient Decompensation
[2018-01-20] MEDS: HEPARIN SOD (PORCINE) 5,000 UNIT/ML 1 ML SYRINGE SUBCUT SCH ×3 (06:56→22:10)
[2018-01-20] MEDS ORDERED: (PENDING PHARMACY ID) (Levothyroxine Sodium [Synthroid] 125 MCG) PO SCH (08:00)
[2018-01-20] MEDS: INSULIN LISPRO 100 UNIT/ML 3 ML VIAL SUBCUT PRN ×4 (08:31→22:09)
[2018-01-20] MEDS ORDERED: LACTULOSE SYRUP 20 GM/30 ML UDCUP PO SCH (10:00)
[2018-01-20] MEDS ORDERED: ANASTROZOLE 1 MG TABLET PO SCH (10:00)
[2018-01-20] MEDS ORDERED: POLYETHYLENE GLYCOL 3350 POWDER 17 GM/1 PACKET PO SCH (10:00)
[2018-01-20] MEDS ORDERED: ASPIRIN 81 MG TABLET, ENT COATED PO SCH (10:00)
[2018-01-20] MEDS: GABAPENTIN 400 MG CAPSULE PO SCH ×2 (11:19→22:07)
[2018-01-20] MEDS: DULOXETINE HCL 30 MG CAPSULE.DR PO SCH ×2 (11:19→22:07)
[2018-01-20] MEDS: METOPROLOL SUCCINATE 25 MG TAB.SR.24H PO SCH ×2 (11:20→17:14)
[2018-01-20] MEDS: GABAPENTIN 300 MG CAPSULE PO SCH ×2 (11:20→22:09)
[2018-01-20] MEDS: CIPROFLOXACIN 400 MG/D5W RTU 400 MG/200 ML RTUPB IV SCH ×2 (11:22→22:07)
[2018-01-20] MEDS: DOCUSATE SODIUM 100 MG CAPSULE PO SCH ×2 (11:27→18:58)
--- NOTE | 2018-01-20 11:56 | RADIOLOGY REPORT (SQ) ---
EXAM DESCRIPTION: CT ABD/PELVIS NO ORAL OR IV COMPLETED DATE/TIME: 01/20/2018 10:10 am REASON FOR STUDY: renal stone, pyelonephritis COMPARISON: 08/01/2017 TECHNIQUE: CT scan of the abdomen and pelvis performed without intravenous or oral contrast. Images reviewed with lung, soft tissue, and bone windows. Reconstructed coronal and sagittal MPR images revi ewed. All images stored on PACS. All CT scanners at this facility use dose modulation, iterative reconstruction, and/or weight based d osing when appropriate to reduce radiation dose to as low as reasonably achievable (ALARA). [facility]: Dose Right [facility]: CareDose [facility]: Dose Right [facility]: Teradose 4D [facility]: [employer] RADIATION DOSE: CT Rad equipment meets quality standard of care and radiation dose reduction techniq ues were employed. CTDIvol: 29.6 mGy. DLP: 1820 mGy-cm.mGy. LIMITATIONS: None. FINDINGS: LOWER CHEST: No acute findings. NON-CONTRASTED LIVER, SPLEEN, ADRENALS: Unchanged pneumobilia. PANCREAS: No masses. No peripancreatic inflammatory changes. GALLBLADDER: Not visualized. RIGHT KIDNEY AND URETER: No suspicious masses. Assessment limited by lack of IV contrast. 10 x 24 m m UPJ stone measuring 552 HU. Moderate hydronephrosis. LEFT KIDNEY AND URETER: No suspicious masses. Assessment limited by lack of IV contrast. No signifi cant calcifications. No hydronephrosis or hydroureter. AORTA AND RETROPERITONEUM: No aneurysm. No retroperitoneal masses or adenopathy. BOWEL AND PERITONEAL CAVITY: Diffuse diverticulosis. No obvious masses or inflammatory changes. No f ree fluid. APPENDIX: Not visualized. PELVIS, BLADDER, AND ABDOMINAL WALL:Prior anterior abdominal wall hernia repair. BONES: No acute findings. OTHER: No other significant finding. IMPRESSION: Large right UPJ stone. Moderate hydronephrosis. COMMENT: Quality ID # [id number]: Final reports with documentation of one or more dose reduction techniques (e.g., Automated exposure control, adjustment of the mA and/or kV according to patient size, use of iterative reconstruction technique) TECHNICAL DOCUMENTATION: JOB ID: [id number] [employer]- All Rights Reserved Reading location - IP/workstation name: [email or web address]-[email or web address]
--- NOTE | 2018-01-20 13:44 | PDOC PROGRESS REPORT ---
Subjective Progress Note for:: 01/20/18 Subjective:: Ms. Ibarra is an 82 year old female with a PMH of morbid obesity, history of left sided urolithiasis in July, obstructive sleep apnea, COPD with chronic hypercapnia, atrial fibrillation, diabetes, hypertension, opiate dependent chronic pain, anxiety, depression, history of suicide attempt by benzodiazepine and opiate overdose who was admitted for acute pyelonephritis. No acute event overnight. Patient complains of left lower quadrant pain. Last febrile episode of 100.8 at 3:30 this morning. No nausea or vomiting. Reason For Visit: SEPSIS, PYELONEPHRITIS DIABETES MORBID OBESITY Physical Exam Vital Signs: Temp Pulse Resp BP Pulse Ox 99.6 F 89 24 H 111/45 L 92 01/20/18 11:31 01/20/18 11:31 01/20/18 11:31 01/20/18 11:31 01/20/18 11:31 Intake & Output 01/19/18 01/20/18 01/21/18 06:59 06:59 06:59 Intake Total 300 200 Output Total 0 Balance 300 200 Weight 293 lb 10.491 oz General appearance: PRESENT: no acute distress, well-developed, well-nourished Head exam: PRESENT: atraumatic, normocephalic Eye exam: PRESENT: conjunctiva pink, EOMI, PERRLA. ABSENT: scleral icterus Ear exam: PRESENT: normal external ear exam Neck exam: ABSENT: carotid bruit, JVD, lymphadenopathy, thyromegaly Respiratory exam: PRESENT: clear to auscultation britt. ABSENT: rales, rhonchi, wheezes Cardiovascular exam: PRESENT: RRR. ABSENT: diastolic murmur, rubs, systolic murmur Vascular exam: PRESENT: normal capillary refill GI/Abdominal exam: PRESENT: normal bowel sounds, soft, tenderness - mild direct tenderness on the LLQ, no CVA tenderness. ABSENT: distended, guarding, mass, organolmegaly, rebound Rectal exam: PRESENT: deferred Neurological exam: PRESENT: alert, awake, oriented to person, oriented to place , oriented to time, oriented to situation, CN II-XII grossly intact. ABSENT: motor sensory deficit Results Laboratory Results: 01/20/18 03:58 01/20/18 03:58 10/26/18 10/26/18 10/27/18 21:00 21:00 03:58 WBC 17.1 H RBC 3.80 Hgb 12.7 Hct 36.7 MCV 97 MCH 33.4 MCHC 34.5 RDW 14.5 H Plt Count 209 Seg Neutrophils % Not Reportable Lymphocytes % Not Reportable Monocytes % Not Reportable Eosinophils % Not Reportable Basophils % Not Reportable Absolute Neutrophils Not Reportable Absolute Lymphocytes Not Reportable Absolute Monocytes Not Reportable Absolute Eosinophils Not Reportable Absolute Basophils Not Reportable Sodium Potassium Chloride Carbon Dioxide Anion Gap BUN Creatinine Est GFR ( Amer) Est GFR (Non-Af Amer) Glucose Lactic Acid 4.2 H Calcium TSH 6.35 H 01/20/18 01/20/18 03:58 06:20 WBC RBC Hgb Hct MCV MCH MCHC RDW Plt Count Seg Neutrophils % Lymphocytes % Monocytes % Eosinophils % Basophils % Absolute Neutrophils Absolute Lymphocytes Absolute Monocytes Absolute Eosinophils Absolute Basophils Sodium 138.1 Potassium 4.8 Chloride 102 Carbon Dioxide 21 L Anion Gap 15 BUN 20 Creatinine 1.24 Est GFR ( Amer) 50 L Est GFR (Non-Af Amer) 42 L Glucose 195 H Lactic Acid 2.0 Calcium 9.5 TSH Impressions: Chest X-Ray 01/19/18 16:05 IMPRESSION: NO ACUTE RADIOGRAPHIC FINDING IN THE CHEST. Abdomen/Pelvis CT 01/20/18 09:14 IMPRESSION: Large right UPJ stone. Moderate hydronephrosis. Assessment & Plan - Diagnosis (1) Pyelonephritis Is this a current diagnosis for this admission?: Yes Plan: Continue IV antibiotics. Patient has a history of left sided urolithiasis in July 2017. She says she is not aware of this. Will order a CT of the abdomen/ pelvis for further reassessment. - Time Time Spent with patient: 15-24 minutes
--- NOTE | 2018-01-20 14:58 | PDOC TRANSFER SUMMARY ---
General Admission Date/PCP: 01/19/18 20:27 KG KNOTT MD Resuscitation Status: Full Code - Transfer Diagnosis (1) Pyelonephritis Is this a current diagnosis for this admission?: Yes (2) Sepsis Is this a current diagnosis for this admission?: Yes (3) Urolithiasis Is this a current diagnosis for this admission?: Yes - Transfer Medications Home Medications: Albuterol Sulfate [Proair HFA Inhalation Aerosol 8.5 gm MDI] 2 puff IH Q4HP PRN 07/27/17 Anastrozole [Arimidex] 1 mg PO DAILY 07/27/17 Aspirin [Ecotrin 81 mg EC Tablet] 81 mg PO DAILY 07/27/17 Budesonide/Formoterol Fumarate [Symbicort 160-4.5 Mcg Inhaler] 2 puff IH Q12 06/11 Dofetilide [Tikosyn] 250 mcg PO Q12 07/27/17 Duloxetine HCl [Cymbalta] 60 mg PO Q12 07/27/17 Latanoprost [Xalatan 0.005% Oph Soln 2.5 ml] 1 drop OU DAILY 07/27/17 Levothyroxine Sodium [Synthroid] 125 mcg PO ACBRKFST 07/27/17 Metformin HCl [Metformin HCl ER] 500 mg PO WSUPPER 07/27/17 Pantoprazole Sodium [Protonix] 40 mg PO DAILY 07/27/17 Tiotropium [place] [Spiriva Handihaler 5 Cap/Kit (18 Mcg/Cap)] 1 puff IH DAILY 07/27/17 Alprazolam [Xanax 0.5 mg Tablet] 0.5 mg PO BIDP PRN 01/19/18 Bisacodyl [Dulcolax] 5 mg PO PRN PRN 01/19/18 Gabapentin [Neurontin 400 mg Capsule] 400 mg PO Q12 01/19/18 Metoprolol Succinate [Toprol Xl] 25 mg PO BID 01/19/18 Orphenadrine Citrate 100 mg PO BIDP PRN 01/19/18 Oxycodone HCl/Acetaminophen [Percocet 7.5-325 mg Tablet] 1 tab PO DAILYP PRN Polyethylene Glycol 3350 [Miralax Powder 17 gm/Packet] 1 packet PO DAILY Transfer Medications: Current Medications Acetaminophen (Tylenol 325 Mg Tablet) 650 mg PO Q4HP PRN PRN Reason: FOR PAIN OR TEMP Stop: 02/18/18 20:11 Al Hydrox/Mg Hydrox/Simethicone (Maalox Plus Susp 30 Udcup) 30 ml PO Q6HP PRN PRN Reason: HEARTBURN Stop: 02/18/18 20:11 Last Admin: 01/20/18 01:57 Dose: 30 ml Albuterol/Ipratropium (Duoneb 3 Ml Ampul) 3 ml NEB [id number] PRN PRN Reason: SHORTNESS OF BREATH Stop: 02/18/18 20:11 Alprazolam (Xanax 0.5 Mg Tablet) 0.25 mg PO BIDP PRN PRN Reason: ANXIETY Stop: 01/26/18 22:19 Anastrozole (Arimidex 1 Mg Tablet) 1 mg PO DAILY [facility] Stop: 02/19/18 09:59 Last Admin: 01/20/18 13:02 Dose: 1 mg Aspirin (Ecotrin 81 Mg Ec Tablet) 81 mg PO DAILY PATTI Stop: 02/19/18 09:59 Last Admin: 01/20/18 11:20 Dose: 81 mg Bisacodyl (Dulcolax 5 Mg Tablet) 5 mg PO PRN PRN PRN Reason: FOR CONSTIPATION Stop: 02/18/18 22:19 Budesonide/Formoterol Fumarate (Symbicort Hfa 160-4.5 Mcg Inhaler 6 Gm) 2 puff IH Q12 PATTI Stop: 02/18/18 21:59 Last Admin: 01/20/18 13:04 Dose: 2 puff Chlorpheniramine Maleate (Chlor-Trimeton 4 Mg Tablet) 4 mg PO Q6HP PRN PRN Reason: FOR ALLERGIES Stop: 02/18/18 20:16 Dextrose (Dextrose Inj 50% Syringe (25 Gm/50 Ml)) 12.5 gm IV PRN PRN; Protocol PRN Reason: FOR BG 50-69 IN ALERT PATIENT Stop: 02/18/18 20:11 Dextrose (Dextrose Inj 50% Syringe (25 Gm/50 Ml)) 25 gm IV PRN PRN; Protocol PRN Reason: PER PROTOCOL Stop: 02/18/18 20:11 Diltiazem HCl (Cardizem Cd 120 Mg Capsule) 120 mg PO QPM PATTI Stop: 02/18/18 20:59 Last Admin: 01/19/18 21:08 Dose: 120 mg Docusate Sodium (Colace 100 Mg Capsule) 100 mg PO BID [facility] Stop: 02/19/18 09:59 Last Admin: 01/20/18 11:27 Dose: Not Given Duloxetine HCl (Cymbalta 30 Mg Capsule.Dr) 60 mg PO Q12 [facility] Stop: 02/18/18 21:59 Last Admin: 01/20/18 11:19 Dose: 60 mg Gabapentin (Neurontin 300 Mg Capsule) 300 mg PO Q12 PATTI Stop: 02/18/18 21:59 Last Admin: 01/20/18 11:20 Dose: 300 mg Gabapentin (Neurontin 400 Mg Capsule) 400 mg PO Q12 [facility] Stop: 02/19/18 09:59 Last Admin: 01/20/18 11:19 Dose: 400 mg Glucagon (Glucagen Inj 1 Mg Vial) 1 mg IM PRN PRN; Protocol PRN Reason: Evaluate for BG < 70 Stop: 02/18/18 20:11 Glucose (Glutose 40% Gel 15 Gm Tube) 15 gm PO PRN PRN; Protocol PRN Reason: FOR BG 50-69 IN ALERT PATIENT Stop: 02/18/18 20:11 Glucose (Glutose 40% Gel 15 Gm Tube) 30 gm PO PRN PRN; Protocol PRN Reason: FOR BG < 50 IN ALERT PATIENT Stop: 02/18/18 20:11 Heparin Sodium (Porcine) (Heparin Inj 5,000 Units/Ml 1 Ml Syringe) 5,000 unit SUBCUT Q8 [facility] Stop: 02/18/18 21:59 Last Admin: 01/20/18 06:56 Dose: 5,000 unit Ciprofloxacin/Dextrose (Cipro Rtu 400 Mg/D5w 200 Ml Premix Bag) 400 mg in 200 mls @ 200 mls/hr IV Q12 [facility] Stop: 01/26/18 21:59 Last Infusion: 01/20/18 12:41 Dose: Infused Ceftriaxone Sodium 1,000 mg/ (Dextrose) 50 mls @ 100 mls/hr IV QPM [facility] Stop: 01/27/18 17:59 Influenza Virus Vaccine Quadrival (Fluarix Adlt Quad 2017- Vac 0.5 Ml Syr) 0.5 ml IM .DISCHARGE PRN PRN Reason: THIS MED IS NOT "PRN" Stop: 02/19/18 01:28 Insulin Human Lispro (Humalog Insulin 100 Unit/1 Ml 3 Ml Vial) 0 - 12 unit SUBCUT ACP PRN; Protocol PRN Reason: PER PROTOCOL Stop: 02/18/18 20:11 Last Admin: 01/20/18 13:02 Dose: 4 unit Ketorolac Tromethamine (Toradol Inj/Pf 30 Mg/1 Ml Sdv) 15 mg IV Q6HP PRN PRN Reason: FOR PAIN OR TEMP Stop: 01/24/18 20:45 Lactulose (Cephulac Syrup 20 Gm/30 Ml Udcup) 20 gm PO DAILY PATTI Stop: 02/19/18 09:59 Last Admin: 01/20/18 11:30 Dose: Not Given Levalbuterol HCl (Xopenex Neb 1.25 Mg/3 Ml Ampul) 1.25 mg NEB RTQ6HP PRN PRN Reason: SHORTNESS OF BREATH Stop: 02/18/18 20:11 Levothyroxine Sodium (Synthroid 0.1 Mg Tablet) 0.1 mg PO Q6AM PATTI Stop: 02/19/18 05:59 Last Admin: 01/20/18 06:56 Dose: 0.1 mg Levothyroxine Sodium (Synthroid 0.025 Mg Tablet) 0.025 mg PO Q6AM PATTI Stop: 02/19/18 05:59 Last Admin: 01/20/18 06:56 Dose: 0.025 mg Metoprolol Succinate (Toprol Xl 25 Mg Tab.Sr) 25 mg PO BID PATTI Stop: 02/19/18 09:59 Last Admin: 01/20/18 11:20 Dose: 25 mg Polyethylene Glycol (Miralax Powder 17 Gm/Packet) 17 gm PO DAILY PATTI Stop: 02/19/18 09:59 Last Admin: 01/20/18 11:29 Dose: Not Given - Allergies Allergies/Adverse Reactions: Penicillins Allergy (Unknown, Verified 01/19/18 19:00) Generalized rash Sulfa (Sulfonamide Antibiotics) Allergy (Unknown, Verified 01/19/18 19:00) Generalized rash clarithromycin [From Biaxin] Allergy (Verified 01/19/18 19:00) codeine Allergy (Verified 01/19/18 19:00) Hospital Course Hospital Course: Ms. Ibarra is an 82 year old female with a PMH of morbid obesity, history of recurrent UTI, history of left sided urolithiasis in July (no intervention done so far), obstructive sleep apnea, COPD with chronic hypercapnia, atrial fibrillation (was on Xarelto before-patient unsure why she was taken off it), diabetes, hypertension, opiate dependent chronic pain, anxiety, depression, history of suicide attempt by benzodiazepine and opiate overdose who was admitted for sepsis secondary to acute pyelonephritis. Patient was started on Rocephin and ciprofloxacin. She has penicillin allergy. CTA of the abdomen and pelvis was done and showed a large left UPV stone with moderate hydronephrosis. Patient will need urologic intervention for this stone in the setting of sepsis from pyelonephritis. No urology service available in house. Will transfer patient to [facility]. Discussed with urology, Medhat López working with Dr. Eisenberg at [facility] who has accepted the patient for transfer. Physical Exam Vital Signs: Temp Pulse Resp BP Pulse Ox 99.6 F 89 24 H 111/45 L 92 01/20/18 11:31 01/20/18 11:31 01/20/18 11:31 01/20/18 11:31 01/20/18 11:31 Intake & Output 01/19/18 01/20/18 01/21/18 06:59 06:59 06:59 Intake Total 300 1100 Output Total 0 Balance 300 1100 Weight 293 lb 10.491 oz General appearance: PRESENT: no acute distress, well-developed, well-nourished Head exam: PRESENT: atraumatic, normocephalic Eye exam: PRESENT: conjunctiva pink, EOMI, PERRLA. ABSENT: scleral icterus Ear exam: PRESENT: normal external ear exam Mouth exam: PRESENT: moist, tongue midline Neck exam: ABSENT: carotid bruit, JVD, lymphadenopathy, thyromegaly Respiratory exam: PRESENT: clear to auscultation britt. ABSENT: rales, rhonchi, wheezes Cardiovascular exam: PRESENT: RRR. ABSENT: diastolic murmur, rubs, systolic murmur Pulses: PRESENT: normal dorsalis pedis pul GI/Abdominal exam: PRESENT: normal bowel sounds, soft, tenderness - mild direct LLQ tenderness. ABSENT: distended, guarding, mass, organolmegaly, rebound Rectal exam: PRESENT: deferred Neurological exam: PRESENT: alert, awake, oriented to person, oriented to place , oriented to time, oriented to situation, CN II-XII grossly intact. ABSENT: motor sensory deficit Results Laboratory Results: 01/20/18 03:58 01/20/18 03:58 01/19/18 01/19/18 01/20/18 21:00 21:00 03:58 WBC 17.1 H RBC 3.80 Hgb 12.7 Hct 36.7 MCV 97 MCH 33.4 MCHC 34.5 RDW 14.5 H Plt Count 209 Seg Neutrophils % Not Reportable Lymphocytes % Not Reportable Monocytes % Not Reportable Eosinophils % Not Reportable Basophils % Not Reportable Absolute Neutrophils Not Reportable Absolute Lymphocytes Not Reportable Absolute Monocytes Not Reportable Absolute Eosinophils Not Reportable Absolute Basophils Not Reportable Sodium Potassium Chloride Carbon Dioxide Anion Gap BUN Creatinine Est GFR ( Amer) Est GFR (Non-Af Amer) Glucose Lactic Acid 4.2 H Calcium TSH 6.35 H 01/20/18 01/20/18 03:58 06:20 WBC RBC Hgb Hct MCV MCH MCHC RDW Plt Count Seg Neutrophils % Lymphocytes % Monocytes % Eosinophils % Basophils % Absolute Neutrophils Absolute Lymphocytes Absolute Monocytes Absolute Eosinophils Absolute Basophils Sodium 138.1 Potassium 4.8 Chloride 102 Carbon Dioxide 21 L Anion Gap 15 BUN 20 Creatinine 1.24 Est GFR ( Amer) 50 L Est GFR (Non-Af Amer) 42 L Glucose 195 H Lactic Acid 2.0 Calcium 9.5 TSH Impressions: Chest X-Ray 01/19/18 16:05 IMPRESSION: NO ACUTE RADIOGRAPHIC FINDING IN THE CHEST. Abdomen/Pelvis CT 01/20/18 09:14 IMPRESSION: Large right UPJ stone. Moderate hydronephrosis.
[2018-01-20] MEDS: DILTIAZEM HCL 120 MG CAP.SR.24H PO SCH (17:55)
[2018-01-20] MEDS ORDERED: CEFTRIAXONE 1 GM/D5W RTU 1 GM/50 ML RTUPB IV SCH (18:00)
[2018-01-20] MEDS ORDERED: CEFTRIAXONE SODIUM 1,000 MG in DEXTROSE 5%-WATER 50 ML IV SCH (18:00)
[2018-01-21 00:10] VITALS: BP 98/46
== END 2018-01-21 01:35 | disposition short-term general hospital (02) | DRG 872 ==
LOC: ER 15:35 → EH 20:27 → 3N 21:55
PROVIDERS: ADMIT Internal Medicine; ATTEND Internal Medicine
PROC: 3E0F73Z Introduction of Anti-inflammatory into Respiratory Tract, Via Natural or Artificial Opening (ICD-10-PCS; 2018-01-19)
PROC: 5A09357 Assistance with Respiratory Ventilation, Less than 24 Consecutive Hours, Continuous Positive Airway Pressure (ICD-10-PCS; principal; 2018-01-20)
DX: A41.9 Sepsis, unspecified organism (principal); N10 Acute pyelonephritis; N13.2 Hydronephrosis with renal and ureteral calculous obstruction; E87.2 Acidosis; E11.9 Type 2 diabetes mellitus without complications; E66.01 Morbid (severe) obesity due to excess calories; G47.33 Obstructive sleep apnea (adult) (pediatric); J43.2 Centrilobular emphysema; I48.2 Chronic atrial fibrillation; I10 Essential (primary) hypertension; G89.29 Other chronic pain; F32.9 Major depressive disorder, single episode, unspecified; R06.89 Other abnormalities of breathing; E78.00 Pure hypercholesterolemia, unspecified; K59.00 Constipation, unspecified; F41.1 Generalized anxiety disorder; Z79.82 Long term (current) use of aspirin; Z79.899 Other long term (current) drug therapy; Z88.6 Allergy status to analgesic agent; Z88.3 Allergy status to other anti-infective agents; Z88.0 Allergy status to penicillin; Z88.2 Allergy status to sulfonamides; Z79.891 Long term (current) use of opiate analgesic; Z87.891 Personal history of nicotine dependence
CPT/HCPCS: 36415; 71045; 74176; 80048; 80053; 81001; 82962; 83036; 83605; 84443; 85025; 87040; 87077; 87086; 87088; 87186; 94667; 96361; 96365; 99285; J0696; J0744; J1644; J1815; J3490; J7120

== ENCOUNTER 2018-02-08 16:54 | Emergency (ER) | payer MEDICARE, BC ==
--- NOTE | 2018-02-08 18:44 | ER Document Report ---
ED General - General Chief Complaint: Knee Pain Stated Complaint: KNEE PAIN Time Seen by Provider: 02/08/18 18:19 Notes: Patient is an 82-year-old female with a past medical history of morbid obesity, hypertension, recent hospitalization for pyelonephritis, currently residing in a nursing facility for rehab who presents apparently due to the nursing facility is concerned she had a DVT in her right ankle. The patient reports that her main concern is that she has had several weeks of a throbbing, aching, constant pain to the lateral posterior aspect of her right popliteal fossa. She states that this pain has been unchanged and is not new or different today. The patient states that she had an ultrasound done apparently for investigation of the source of this pain and was diagnosed with having a small distal clot in her ankle which apparently was what prompted her to come to the emergency department by EMS. The patient states that nothing is been done to try to improve the pain in the knee. It is worsened by attempts at walking. She denies any difficulty breathing or leg swelling. TRAVEL OUTSIDE OF THE [place] IN LAST 30 DAYS: No - Related Data Allergies/Adverse Reactions: Penicillins Allergy (Unknown, Verified 01/19/18 19:00) Generalized rash Sulfa (Sulfonamide Antibiotics) Allergy (Unknown, Verified 01/19/18 19:00) Generalized rash clarithromycin [From Biaxin] Allergy (Verified 01/19/18 19:00) codeine Allergy (Verified 01/19/18 19:00) Past Medical History - General Information source: Patient - Social History Smoking Status: Never Smoker Frequency of alcohol use: None Drug Abuse: None Lives with: [facility] Family History: Reviewed & Not Pertinent - Past Medical History Cardiac Medical History: Reports: Hx Atrial Fibrillation, Hx Hypercholesterolemia, Hx Hypertension Pulmonary Medical History: Reports: Hx Sleep Apnea Endocrine Medical History: Reports: Hx Diabetes Mellitus Type 2 Renal/ Medical History: Denies: Hx Peritoneal Dialysis Musculoskeletal Medical History: Reports Hx Arthritis Psychiatric Medical History: Reports: Hx Depression Past Surgical History: Reports: Hx Section - Immunizations Hx Diphtheria, Pertussis, Tetanus Vaccination: Yes Review of Systems - Review of Systems Notes: Constitutional: Negative for fever. HENT: Negative for sore throat. Eyes: Negative for visual changes. Cardiovascular: Negative for chest pain. Respiratory: Negative for shortness of breath. Gastrointestinal: Negative for abdominal pain, vomiting or diarrhea. Genitourinary: Negative for dysuria. Musculoskeletal: Positive for right knee pain Skin: Negative for rash. Neurological: Negative for headaches, weakness or numbness. 10 point ROS negative except as marked above and in HPI. Physical Exam - Vital signs Vitals: Resp Pulse Ox 22 H 95 02/08/18 18:39 02/08/18 18:39 Interpretation: Normal Notes: PHYSICAL EXAMINATION: GENERAL: Well-appearing, well-nourished and in no acute distress. HEAD: Atraumatic, normocephalic. EYES: Pupils equal round and reactive to light, extraocular movements intact, sclera anicteric, conjunctiva are normal. ENT: nares patent, oropharynx clear without exudates. Moist mucous membranes. NECK: Normal range of motion, supple without lymphadenopathy LUNGS: Breath sounds clear to auscultation bilaterally and equal. No wheezes rales or rhonchi. HEART: Regular rate and rhythm without murmurs ABDOMEN: Soft, nontender, normoactive bowel sounds. No guarding, no rebound. No masses appreciated. EXTREMITIES: Normal range of motion, no pitting or edema. No cyanosis. NEUROLOGICAL: No focal neurological deficits. Moves all extremities spontaneously and on command. PSYCH: Normal mood, normal affect. SKIN: Warm, Dry, normal turgor, extensive bruising to the bilateral lower extremities are notable on the right. There is an area of bruising behind the right lateral aspect of the right knee that is painful to palpation Course - Re-evaluation Re-evalutation: 02/08/18 18:42 Patient presents with what appears to be a soft tissue hematoma along the lateral posterior aspect of the right knee. The area has been traced as the patient has had pain there for over 1 week and there is no expansion of any kind of erythema around the area of tracing to suggest localized abscess or cellulitis. There is no fluctuance to the area to suggest an acute pocket of infection. The patient had a venous Doppler study performed earlier today at [facility], was diagnosed as having an isolated blood clot in the ankle vessel but nothing into the popliteal vein. I do not believe any further labs or imaging are indicated. There is a very well appearance, notes that the knee pain is her primary focus that has been ongoing for at least 10 days and is unchanged tonight. She was apparently transferred from [place] due to concerns of the blood clot in her ankle vessel. This does not warrant hospitalization and given that the patient has had significant bruising including the etiology of her current pain in the context of formal anticoagulation I do not believe it is appropriate to restart anticoagulation out of the emergency department setting and that this decision should be made in conjunction with her primary care physician. At this time will discharge with return precautions and follow-up recommendations. Verbal discharge instructions given a the bedside and opportunity for questions given. Medication warnings reviewed. Patient is in agreement with this plan and has verbalized understanding of return precautions and the need for primary care follow-up in the next 24-72 hours. - Vital Signs Vital signs: Temp Pulse Resp BP Pulse Ox 98.7 F 71 25 H 147/73 H 96 02/08/18 20:08 02/08/18 20:08 02/08/18 20:08 02/08/18 20:08 02/08/18 20:08 Discharge - Discharge Clinical Impression: Right leg pain, Hematoma, nontraumatic, soft tissue Condition: Good Disposition: HOME-SNF (ED ONLY) Additional Instructions: Please use lidocaine patches as prescribed to the area of pain. Discuss with your primary care doctor about whether or not they wish to resume anti- coagulation given that the report is that your blood clot is isolated to your ankle and these would not typically be treated with anticoagulation. Your area of pain appears to be a soft tissue bruise and should resolve in the coming weeks. Please return if you develop fever, worsening pain, increased swelling, or any other symptoms that are worrisome to you. Referrals: KG KNOTT MD [Primary Care Provider] - Follow up as needed
[2018-02-08 20:09] VITALS: BP 147/73
== END 2018-02-08 20:15 ==
LOC: ER 16:54
DX: M25.561 Pain in right knee (principal); E66.01 Morbid (severe) obesity due to excess calories; I10 Essential (primary) hypertension; I48.91 Unspecified atrial fibrillation; E78.00 Pure hypercholesterolemia, unspecified; E11.9 Type 2 diabetes mellitus without complications; Z88.0 Allergy status to penicillin; Z88.2 Allergy status to sulfonamides; Z88.6 Allergy status to analgesic agent
CPT/HCPCS: 99284

== ENCOUNTER 2018-03-29 13:53 | Emergency (ER) | payer MEDICARE, BC ==
--- NOTE | 2018-03-29 15:45 | ER Document Report ---
ED Medical Screen (RME) - General Chief Complaint: Flank Pain Stated Complaint: LEFT FLANK PAIN Notes: 82-year-old female with recent hospitalization for pyelonephritis and sepsis status post ureteral stenting of the right ureter for kidney stone presents to the emergency department today for left flank pain. She states she is concerned for kidney infection and does not wanted to get out of control like her last hospitalization so she is seen out of an abundance of caution. She currently denies fever, nausea, chills, diaphoresis, vomiting. She tried taking oxycodone and a muscle relaxer at home that did not help. I have greeted and performed a rapid initial assessment of this patient. A comprehensive ED assessment and evaluation of the patient, analysis of test results and completion of medical decision making process will be conducted by an additional ED providers. TRAVEL OUTSIDE OF THE [place] IN LAST 30 DAYS: No - Related Data Allergies/Adverse Reactions: Penicillins Allergy (Unknown, Verified 03/29/18 13:55) Generalized rash Sulfa (Sulfonamide Antibiotics) Allergy (Unknown, Verified 03/29/18 13:55) Generalized rash clarithromycin [From Biaxin] Allergy (Verified 03/29/18 13:55) codeine Allergy (Verified 03/29/18 13:55) methocarbamol [From Robaxin] Allergy (Verified 03/29/18 15:35) Past Medical History - Social History Frequency of alcohol use: None Drug Abuse: None - Past Medical History Cardiac Medical History: Reports: Hx Atrial Fibrillation, Hx Hypercholesterolemia, Hx Hypertension Pulmonary Medical History: Reports: Hx Sleep Apnea Endocrine Medical History: Reports: Hx Diabetes Mellitus Type 2 Renal/ Medical History: Denies: Hx Peritoneal Dialysis Musculoskeltal Medical History: Reports Hx Arthritis Psychiatric Medical History: Reports: Hx Depression Past Surgical History: Reports: Hx Abdominal Surgery - hernia repair, Hx Breast Surgery - left breast- nipple/areola removed, Hx Cardiac Surgery - open heart surgery, Hx Section, Hx Cholecystectomy, Hx Gynecologic Surgery - D+C X3, Hx Orthopedic Surgery - carpal tunnel, britt knees, bunionectomy, Hx Tonsillectomy - Immunizations Hx Diphtheria, Pertussis, Tetanus Vaccination: Yes Physical Exam - Vital signs Vitals: Temp Pulse Resp BP Pulse Ox 99.2 F 65 18 136/68 H 95 03/29/18 13:59 03/29/18 13:59 03/29/18 13:59 03/29/18 13:59 03/29/18 13:59 - Respiratory Respiratory status: No respiratory distress Chest status: No: Pain with deep breathing - Back Back: CVA tenderness - Left side. Right CVA no tenderness to palpation Course - Vital Signs Vital signs: Temp Pulse Resp BP Pulse Ox 99.2 F 65 18 136/68 H 95 03/29/18 13:59 03/29/18 13:59 03/29/18 13:59 03/29/18 13:59 03/29/18 13:59 Doctor's Discharge - Discharge Referrals: RL SANTOS DO [Primary Care Provider] - Follow up as needed
[2018-03-29 16:01] LABS: ABSOLUTE EOSINOPHILS # (AUTO) 0.2 10^3/uL (0.0-0.6); ABSOLUTE LYMPHOCYTES (AUTO) 1.5 10^3/uL (0.5-4.7); ABSOLUTE MONOCYTES (AUTO) 0.4 10^3/uL (0.1-1.4); ABSOLUTE NEUT (AUTO) 4.9 10^3/uL (1.7-8.2); BASOPHILS % (AUTO) 0.6 % (0-2); EOSINOPHILS % (AUTO) 3.4 % (0-6); HEMATOCRIT 35.1 % (36.0-47.0); HEMOGLOBIN 11.7 g/dL (12.0-15.5); LYMPHOCYTES % (AUTO) 20.9 % (13-45); MEAN CORPUSCULAR HEMOGLOBIN 31.6 pg (27.0-33.4); MEAN CORPUSCULAR HGB CONC 33.3 g/dL (32.0-36.0); MEAN CORPUSCULAR VOLUME 95 fl (80-97); MONOCYTES % (AUTO) 5.3 % (3-13); PLATELET COUNT 301 10^3/uL (150-450); RED CELL DISTRIBUTION WIDTH 16.2 % (11.5-14.0); SEGMENTED NEUTROPHILS % (AUTO) 69.8 % (42-78); TOTAL CELLS COUNTED % (AUTO) 100 %
[2018-03-29 16:19] LABS: ALANINE AMINOTRANSFERASE 7 U/L (9-52); ALBUMIN 3.7 g/dL (3.5-5.0); ALKALINE PHOSPHATASE 82 U/L (38-126); ANION GAP 9 (5-19); ASPARTATE AMINO TRANSFERASE 18 U/L (14-36); BILIRUBIN,DIRECT 0.3 mg/dL (0.0-0.4); BILIRUBIN,TOTAL 0.3 mg/dL (0.2-1.3); BLOOD UREA NITROGEN 13 mg/dL (7-20); CALCIUM 9.5 mg/dL (8.4-10.2); CARBON DIOXIDE 26 mmol/L (22-30); CHLORIDE 105 mmol/L (98-107); GLUCOSE 138 mg/dL (75-110); POTASSIUM 4.9 mmol/L (3.6-5.0); SODIUM 139.9 mmol/L (137-145); TOTAL PROTEIN 7.1 g/dL (6.3-8.2)
--- NOTE | 2018-03-29 16:27 | RADIOLOGY REPORT (SQ) ---
EXAM DESCRIPTION: CT LTD RENAL STONE PROTOCOL ON COMPLETED DATE/TIME: 03/29/2018 4:01 pm REASON FOR STUDY: Left flank pain COMPARISON: PET-CT 10/28/2016 CT ABDOMEN PELVIS 08/01/2017, 01/20/2018 TECHNIQUE: CT scan of the abdomen and pelvis performed without intravenous or oral contrast. Images reviewed with lung, soft tissue, and bone windows. Reconstructed coronal and sagittal MPR images revi ewed. All images stored on PACS. All CT scanners at this facility use dose modulation, iterative reconstruction, and/or weight based d osing when appropriate to reduce radiation dose to as low as reasonably achievable (ALARA). [facility]: Dose Right [facility]: CareDose [facility]: Dose Right [facility]: Teradose 4D [facility]: Smart Supply Vision RADIATION DOSE: CT Rad equipment meets quality standard of care and radiation dose reduction techniq ues were employed. CTDIvol: 19.2 mGy. DLP: 993 mGy-cm.mGy. LIMITATIONS: Obese patient, portion of the right abdominal wall is cropped from the field of view FINDINGS: A 7 mm calculus is present in the distal right ureter at the ureterovesical junction, best shown on axial image 75 and coronal image 56. Very mild right hydroureter is present. No other rig ht-sided ureteral calculi. 2 mm right midpole intrarenal nonobstructive stone. No right renal cysts or masses. LOWER CHEST: No significant findings. No nodules or infiltrates. NON-CONTRASTED LIVER, SPLEEN, ADRENALS: Evaluation limited by lack of IV contrast. No identified sign ificant masses. There is air within the common bile duct and intrahepatic bile ducts related to prio r sphincterotomy. PANCREAS: No masses. No peripancreatic inflammatory changes. GALLBLADDER: Surgically absent RIGHT KIDNEY AND URETER: As above LEFT KIDNEY AND URETER: No suspicious masses. Assessment limited by lack of IV contrast. No signifi cant calcifications. No hydronephrosis or hydroureter. AORTA AND RETROPERITONEUM: No aneurysm. No retroperitoneal masses or adenopathy. BOWEL AND PERITONEAL CAVITY: No obvious masses or inflammatory changes. No free fluid. B no bowel ob struction. No free intraperitoneal air. No CT signs of diverticulitis APPENDIX: Not identified PELVIS, BLADDER, AND ABDOMINAL WALL:No abnormal masses. No free fluid. Bladder normal. Normal size u terus and ovaries with 1 cm uterine fibroid. 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 IMPRESSION: 7 mm stone in the distal right ureter at the ureterovesical junction. Mild right hydron ephrosis and hydroureter COMMENT: Quality ID # [id number]: Final reports with documentation of one or more dose reduction techniques (e.g., Automated exposure control, adjustment of the mA and/or kV according to patient size, use of iterative reconstruction technique) TECHNICAL DOCUMENTATION: JOB ID: [id number] [employer]- All Rights Reserved Reading location - IP/workstation name: [facility]
[2018-03-29 17:24] LABS: APPEARANCE,URINE CLOUDY; BILIRUBIN,URINE NEGATIVE (NEGATIVE); COLOR,URINE YELLOW; GLUCOSE, URINE NEGATIVE (NEGATIVE); KETONES,URINE NEGATIVE (NEGATIVE); LEUKOCYTE ESTERASE,URINE LARGE (NEGATIVE); NITRITE,URINE NEGATIVE (NEGATIVE); PROTEIN,URINE 30 mg/dL (NEGATIVE); URINE SPECIFIC GRAVITY 1.021; UROBILINOGEN,URINE NEGATIVE mg/dL (<2.0)
[2018-03-29] MEDS ORDERED: CEFTRIAXONE INJ 500 MG VIAL IM ONE (19:38)
[2018-03-29] MEDS ORDERED: LIDOCAINE 1% INJ-PF (10 MG/ML) 30 ML SDV INJ ONE (19:38)
[2018-03-29] MEDS ORDERED: TAMSULOSIN HCL 0.4 MG CAP.SR.24H PO ONE (19:39)
--- NOTE | 2018-03-29 19:44 | ER Document Report ---
ED General - General Chief Complaint: Flank Pain Stated Complaint: LEFT FLANK PAIN Time Seen by Provider: 03/29/18 19:23 TRAVEL OUTSIDE OF THE [place] IN LAST 30 DAYS: No - HPI Notes: Patient is a 82-year-old female that presents to the emergency department for chief complaint of left flank pain. Patient reports history of kidney stones and states this feels similar. She has a sharp pain in her left flank that radiates around into her lower abdomen. She denies any dysuria or hematuria. She has had lithotripsy and stenting in the past. She sees a urologist at [facility]. Patient denies fevers, chills, nausea, vomiting and diarrhea. Past Medical History: Kidney stones Past Surgical History: Lithotripsy Social History: Denies drugs alcohol and tobacco Family History: Reviewed and noncontributory for presenting illness Allergies: Reviewed, see documented allergy list. REVIEW OF SYSTEMS: CONSTITUTIONAL : No fever No chills No diaphoresis No recent illness EENT: No vision changes No congestion No sore throat CARDIOVASCULAR: No chest pain No palpitations RESPIRATORY: No shortness of breath No cough No difficulty breathing GASTROINTESTINAL: No abdominal pain No nausea No vomiting No diarrhea GENITOURINARY: No dysuria No hematuria No difficulty urinating MUSCULOSKELETAL: back pain No leg pain No arm pain SKIN: No rashes No lesions LYMPHATIC: No swollen, enlarged glands. NEUROLOGICAL: No lightheadedness No headache No weakness No paresthesias PSYCHIATRIC: No anxiety No depression PHYSICAL EXAMINATION: Vital signs reviewed, nursing noted reviewed. GENERAL: Well-appearing, well-nourished and in no acute distress. HEAD: Atraumatic, normocephalic. EYES: Eyes appear normal, extraocular movements intact, sclera anicteric, conjunctiva are normal. ENT: nares patent, oropharynx clear without exudates. Moist mucous membranes. NECK: Normal range of motion, supple without lymphadenopathy LUNGS: Breath sounds clear to auscultation bilaterally and equal. No wheezes rales or rhonchi. HEART: Regular rate and rhythm without murmurs ABDOMEN: Left CVA tenderness, soft, nontender, normoactive bowel sounds. No rebound, guarding, or rigidity. No masses appreciated. EXTREMITIES: Nontender, good range of motion NEUROLOGICAL: No focal neurological deficits. Moves all extremities spontaneously Motor and sensory grossly intact on exam. PSYCH: Normal mood, normal affect. SKIN: Warm, Dry, normal turgor, no rashes or lesions noted on exposed skin - Related Data Allergies/Adverse Reactions: Penicillins Allergy (Unknown, Verified 03/29/18 13:55) Generalized rash Sulfa (Sulfonamide Antibiotics) Allergy (Unknown, Verified 03/29/18 13:55) Generalized rash clarithromycin [From Biaxin] Allergy (Verified 03/29/18 13:55) codeine Allergy (Verified 03/29/18 13:55) methocarbamol [From Robaxin] Allergy (Verified 03/29/18 15:35) Past Medical History - Social History Smoking Status: Never Smoker Frequency of alcohol use: None Drug Abuse: None Family History: Reviewed & Not Pertinent Patient has suicidal ideation: No Patient has homicidal ideation: No - Past Medical History Cardiac Medical History: Reports: Hx Atrial Fibrillation, Hx Hypercholesterolemia, Hx Hypertension Pulmonary Medical History: Reports: Hx Sleep Apnea Endocrine Medical History: Reports: Hx Diabetes Mellitus Type 2 Renal/ Medical History: Denies: Hx Peritoneal Dialysis Musculoskeletal Medical History: Reports Hx Arthritis Psychiatric Medical History: Reports: Hx Depression Past Surgical History: Reports: Hx Abdominal Surgery - hernia repair, Hx Breast Surgery - left breast- nipple/areola removed, Hx Cardiac Surgery - open heart surgery, Hx Section, Hx Cholecystectomy, Hx Gynecologic Surgery - D+C X3, Hx Orthopedic Surgery - carpal tunnel, britt knees, bunionectomy, Hx Tonsil lectomy - Immunizations Hx Diphtheria, Pertussis, Tetanus Vaccination: Yes Physical Exam - Vital signs Vitals: Temp Pulse Resp BP Pulse Ox 99.2 F 65 18 136/68 H 95 03/29/18 13:59 03/29/18 13:59 03/29/18 13:59 03/29/18 13:59 03/29/18 13:59 Course - Re-evaluation Re-evalutation: 03/29/18 19:43 Vitals reviewed. Nursing notes reviewed. Patient CT scan is consistent with 7 mm ureterolithiasis with associated hydronephrosis and hydroureter. Patient has normal renal function. She also has urinary tract infection but is not septic. She has a normal W BC count. She does have a urologist at [facility] which she is encouraged to follow closely with. She will be given Flomax, Percocet and urine strainer for treatment at home. She will return for new or worsening symptoms. Patient and family in agreement with this plan. She is stable at discharge. Laboratory 03/29/18 03/29/18 03/29/18 15:50 15:50 17:00 WBC 7.0 RBC 3.70 L Hgb 11.7 L Hct 35.1 L MCV 95 MCH 31.6 MCHC 33.3 RDW 16.2 H Plt Count 301 Seg Neutrophils % 69.8 Lymphocytes % 20.9 Monocytes % 5.3 Eosinophils % 3.4 Basophils % 0.6 Absolute Neutrophils 4.9 Absolute Lymphocytes 1.5 Absolute Monocytes 0.4 Absolute Eosinophils 0.2 Absolute Basophils 0.0 Sodium 139.9 Potassium 4.9 Chloride 105 Carbon Dioxide 26 Anion Gap 9 BUN 13 Creatinine 0.78 Est GFR ( Amer) > 60 Est GFR (Non-Af Amer) > 60 Glucose 138 H Calcium 9.5 Total Bilirubin 0.3 Direct Bilirubin 0.3 Neonat Total Bilirubin Not Reportable Neonat Direct Bilirubin Not Reportable Neonat Indirect Bili Not Reportable AST 18 ALT 7 L Alkaline Phosphatase 82 Total Protein 7.1 Albumin 3.7 Urine Color YELLOW Urine Appearance CLOUDY Urine pH 5.0 Ur Specific Shafter 1.021 Urine Protein 30 H Urine Glucose (UA) NEGATIVE Urine Ketones NEGATIVE Urine Blood NEGATIVE Urine Nitrite NEGATIVE Urine Bilirubin NEGATIVE Urine Urobilinogen NEGATIVE Ur Leukocyte Esterase LARGE H Urine WBC (Auto) >182 Urine RBC (Auto) 2 Squamous Epi Cells Auto 14 Urine Mucus (Auto) FEW Urine Ascorbic Acid NEGATIVE Limited or Localized CT 03/29/18 15:38 IMPRESSION: 7 mm stone in the distal right ureter at the ureterovesical junction. Mild right hydronephrosis and hydroureter - Vital Signs Vital signs: Temp Pulse Resp BP Pulse Ox 99.2 F 65 18 136/68 H 95 03/29/18 13:59 03/29/18 13:59 03/29/18 13:59 03/29/18 13:59 03/29/18 13:59 - Laboratory Result Diagrams: 03/29/18 15:50 03/29/18 15:50 Laboratory results interpreted by me: 03/29/18 03/29/18 03/29/18 15:50 15:50 17:00 RBC 3.70 L Hgb 11.7 L Hct 35.1 L RDW 16.2 H Glucose 138 H ALT 7 L Urine Protein 30 H Ur Leukocyte Esterase LARGE H Discharge - Discharge Clinical Impression: Ureterolithiasis UTI (urinary tract infection) Qualifiers: Urinary tract infection type: site unspecified Hematuria presence: with hematuria Qualified Code(s): N39.0 - Urinary tract infection, site not specified; R31.9 - Hematuria, unspecified Condition: Stable Disposition: HOME, SELF-CARE Instructions: Urinary Tract Infection ([facility]), Kidney Stone ([facility]) Additional Instructions: Please return to the emergency department if you have any worsening, or concern of your symptoms. Please return to the emergency department if you develop chest pain, difficulty breathing, severe abdominal pain, or ongoing vomiting. Please follow-up with your primary care physician in 2-3 days and any other recommended physicians. If prescribed, take all medications as directed. If you have any questions or concerns do not hesitate to return the emergency department for evaluation. You have a 7 mm kidney stone, call your urologist in the morning to establish close follow-up Return to the emergency room if you develop fevers, chills, nausea, vomiting, or your pain is increasing. Prescriptions: Oxycodone HCl/Acetaminophen [Percocet 5-325 mg Tablet] 1 tab PO Q6 PRN #10 tab PRN Reason: pain Tamsulosin HCl [Flomax 0.4 mg Cap.sr] 0.4 mg PO DAILY #7 cap.sr.24h Referrals: RL SANTOS DO [NO LOCAL MD] - Follow up as needed
[2018-03-29 19:56] VITALS: BP 139/60
== END 2018-03-29 20:23 | disposition home or self-care (01) ==
LOC: ER 13:53
DX: N20.1 Calculus of ureter (principal); N39.0 Urinary tract infection, site not specified; R10.9 Unspecified abdominal pain; R10.30 Lower abdominal pain, unspecified; I48.91 Unspecified atrial fibrillation; E78.00 Pure hypercholesterolemia, unspecified; I10 Essential (primary) hypertension; E11.9 Type 2 diabetes mellitus without complications; Z88.3 Allergy status to other anti-infective agents; Z88.2 Allergy status to sulfonamides; Z87.442 Personal history of urinary calculi; Z88.0 Allergy status to penicillin; Z88.6 Allergy status to analgesic agent
CPT/HCPCS: 99284; 96372; 36415; 85025; 80053; 81001; 76380; J3490; A9270; J0696

== ENCOUNTER → 2018-08-15 | Outpatient (CLI) | payer MEDICARE, BC ==
[~2018-08-15] MED LIST: REGADENOSON INJ 0.4 MG/5 ML DISP.SYRIN IV ONE
--- NOTE | 2018-08-15 22:33 | DRAGON STRESS TEST REPORT ---
Intravenous Lexiscan Cardiolite stress test using single photon emmision computerized tomography. Date of procedure: 08/15/2018. Ordering Provider: Dr. Jayson Saul. Patient's status: Out Patient. Indication: Chest pain, and the patient with a history of coronary artery disease history of coronary artery stent and history of coronary artery bypass graft surgery.. Coronary risk factors: Age, diabetes mellitus, and hypertension. Resting EKG: Sinus Rhythm. Within Normal Limits. The patient had no chest pain or discomfort, and there were no arrhythmias seen Stress EKG: No changes of ischemia. Reason for termination: Protocol. Conclusions: Normal EKG and hemodynamic response to IV Lexiscan. Nuclear data: At rest the patient was given 15.83 millicuries of technetium 99m sestamibi injected intravenously. As per protocol rest non gated SPECT images were obtained. Subsequently the patient was given intravenous Lexiscan at a dose of 0.4 mg in 5 mL intravenously, followed by flush with normal saline. Subsequently the stress dose of 45.8 millicuries of technetium 99m sestamibi was injected intravenously. As per protocol stress gated images were obtained. Nuclear interpretation: Review of images showed that all segments of the myocardium had normal perfusion at rest, and normal perfusion post stress with IV Lexiscan. All segments of the myocardium had normal motion, contraction, and thickening by gated study. T. I D. ratio was read as abnormal at 1.22. Visually this is not reliable and the TID ratio is normal. There is no transient ischemic dilatation of the left ventricle. Computer read rest, and stress left ventricular ejection fraction were 58 %, and 51 %, respectively. Visually both the stress and rest ejection fractions were normal, and greater than 60%. Conclusion: 1. There is no scintigraphic evidence of Lexiscan induced myocardial ischemia. 2. There is no scintigraphic evidence of myocardial infarction/scar. Recommendations: Aggressive risk factor modification, and treating the underlying co- morbidities. MTDD
== END ==
LOC: RAD 06:51
PROVIDERS: ATTEND Internal Medicine Cardiovascular Disease
DX: R07.9 Chest pain, unspecified (principal)
CPT/HCPCS: 93017; 78452; A9500; J2785; Q9969

== ENCOUNTER → 2018-11-20 | Outpatient (CLI) | payer MEDICARE, BC ==
--- NOTE | 2018-11-21 09:25 | WOMENS IMAGING REPORT ---
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 Read with the assistance of CAD. .[facility] - R2 Diversity Manager Version 9.2 LIMITATIONS: None. FINDINGS: Findings present which are benign by mammographic criteria. No suspicious masses, calcific ations or architectural distortion. Pertinent benign findings: Postsurgical changes in the left breast retroareolar region with surgical clips post lumpectomy. Benign mammographic findings may include one or more of the following: Smooth masses, popcorn/rim/coa rse calcifications, asymmetries, post-procedure changes, and lesions with long-standing stability. IMPRESSION: BENIGN MAMMOGRAPHIC FINDINGS. BIRADS 2 BREAST DENSITY: a. The breasts are almost entirely fatty. BIRAD: ASSESSMENT: 2 BENIGN FINDING(S) RECOMMENDATION: ROUTINE SCREENING COMMENT: The patient has been notified of the results by letter per MQSA requirements. Additional no tification policies are in place for contacting patient with suspicious or incomplete findings. Quality ID #[id number]: The [employer] recommends an annual screening mammogram for women aged 40 years or over. This facility utilizes a reminder system to ensure that all patients receive reminder letters, and/or direct phone calls for appointments. This includes reminders for routine scr eening mammograms, diagnostic mammograms, or other Breast Imaging Interventions when appropriate. Th is patient will be placed in the appropriate reminder system. TECHNICAL DOCUMENTATION: FINDING NUMBER: (1) ASSESSMENT: (1) JOB ID: [id number] [employer]- All Rights Reserved Reading location - IP/workstation name: [email or web address]
--- NOTE | 2018-11-21 10:16 | RADIOLOGY REPORT (SQ) ---
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 TECHNIQUE: Blood glucose level was verified. Above dose of FDG was injected intravenously. 2-D seg mented attenuation correction images were obtained from the base of the skull to the midthighs. Nonc ontrast CT images were obtained for attenuation correction and fusion with emission images. CT image s were performed without oral or intravenous contrast and are not sensitive for parenchymal lesions. A series of overlapping emission PET images were obtained. Images reviewed and manipulated at [facility] work station by the radiologist. Images stored on PACS. LIMITATIONS: None. FINDINGS: HEAD AND NECK: No areas of abnormal metabolic activity in the soft tissues of the head and neck. CHEST: No areas of abnormal metabolic activity in the chest. ABDOMEN AND PELVIS: No areas of abnormal metabolic activity in the abdomen or pelvis. Expected physi ologic activity is present in the genitourinary system and bowel. PROXIMAL LOWER EXTREMITIES: No areas of abnormal metabolic activity in the soft tissues of the lower extremities. BONES: No abnormal metabolic activity in the visualized skeleton. ADDITIONAL CT FINDINGS: Scattered diverticular change. Degenerative changes in the spine. Stable pn eumobilia. OTHER: No other significant findings. IMPRESSION: Negative PET-CT. TECHNICAL DOCUMENTATION: JOB ID: [id number] [employer]- All Rights Reserved Reading location - IP/workstation name: [email or web address]
== END ==
LOC: RAD 15:35
PROVIDERS: ATTEND Internal Medicine Medical Oncology
DX: C50.012 Malignant neoplasm of nipple and areola, left female breast (principal); Z12.31 Encounter for screening mammogram for malignant neoplasm of breast
CPT/HCPCS: 78815; 77063; 77067; A9552

== ENCOUNTER → 2019-12-05 | Outpatient (CLI) | payer MEDICARE, BC ==
--- NOTE | 2019-12-05 14:01 | RADIOLOGY REPORT (SQ) ---
EXAM DESCRIPTION: CHEST PA/LATERAL IMAGES COMPLETED DATE/TIME: 12/05/2019 1:19 pm REASON FOR STUDY: COUGH COMPARISON: 01/19/2018 EXAM PARAMETERS: NUMBER OF VIEWS: two views TECHNIQUE: Digital Frontal and Lateral radiographic views of the chest acquired. RADIATION DOSE: NA LIMITATIONS: none FINDINGS: LUNGS AND PLEURA: No opacities, masses or pneumothorax. No pleural effusion. There is hyp erexpansion. MEDIASTINUM AND HILAR STRUCTURES: No masses or contour abnormalities. HEART AND VASCULAR STRUCTURES: Heart normal size. No evidence for failure. BONES: No acute findings. HARDWARE: Sternotomy wires are in place. OTHER: No other significant finding. IMPRESSION: NO SIGNIFICANT RADIOGRAPHIC FINDING IN THE CHEST. TECHNICAL DOCUMENTATION: JOB ID: [id number] [employer]- All Rights Reserved Reading location - IP/workstation name: [email or web address]
== END ==
LOC: OD 12:35
PROVIDERS: ATTEND Internal Medicine Pulmonary Disease
DX: R05 Cough (principal)
CPT/HCPCS: 71046